=== PATIENT | female | born 1940 | race Caucasian/White ===

== ENCOUNTER 2017-01-29 11:07 | Inpatient (IN) ==
[2017-01-29] MEDS ORDERED: HYOSCYAMINE 0.125 MG ORAL TABLET PO PRN (16:18)
[2017-01-29] MEDS ORDERED: MAGNESIUM CARB PO PRN (16:18)
[2017-01-29] MEDS ORDERED: ALUMINUM HYDROX PO PRN (16:18)
--- NOTE | 2017-01-29 16:28 | IRU History & Physical Report ---
[facility] IRU Date: Date: 01/29/17 Time: 1623 Chief complaint: My back hurts HPI: Ms. Castle is a very pleasant 76-year-old female referred by Dr. Duke Abdalla from [facility] in [place]. Her primary care physician is Dr. Mari Darling. The patient has a history of severe spinal stenosis and recently underwent extensive surgery for this. She had been experiencing severe pain for a number of months if not longer. She has had several epidural steroid injections. She received one in October which seemed to cause even worsened pain. For this reason her daughter has been staying with her for the past 2-1/2 months to help her with household duties etc. She was diagnosed with severe spinal stenosis and spondylolisthesis. The patient underwent surgery by Dr. Ellington on 01/25/2017. This was a fusion and laminectomy with L2-L3 and L4-L5 laminectomy, use of autograft through same incision as well as posterior instrumentation. Since surgery she has had significant discomfort. Once she is able to stand, she is able to ambulate with assistance fairly well. However she has significant pain and difficulty with transfers. She has significant functional deficits. The patient was formerly independent at home prior to her worsened spinal stenosis and spondylolisthesis. She does have history of diabetes mellitus. She is on oral agents only (metformin and glipizide. She checks her blood sugars once daily and states that they are always well controlled around 100 or so. Occasionally they are down into the 70s however. She has not been on insulin. I asked her what her A1c was running and she did not know. She does have a history of hypertension. She is on medication for this. In addition she has had some drainage from the wound apparently. She is now on cephalexin for [address] Ellington. She has had a mild leukocytosis and this will be followed as well. Level of functioning prior to the current procedure is as follows: She was independent for eating, grooming, upper and lower body dressing, and toileting. She was modified independent for bathing, bed/chair/wheelchair transfers, toilet transfers and walking. She was able to walk with a rolling walker 500 feet. Current level of functioning since surgery is as follows: She is supervision level for eating and grooming. She requires moderate assistance for bathing, upper and lower body dressing and bed/chair/wheelchair transfers. She requires total assistance for toileting. She requires maximum assistance for toilet transfers. She requires minimum assistance for walking 200 feet. She has significant pain upon arising from a sitting position and in fact cannot do so without maximum assistance of 2 people. She does have decreased stride length and decreased gait speed. The following medical conditions are noted and require active monitoring and/or management: 1. Uncontrolled pain. She has had difficulty with pain management. She has been on intravenous Dilaudid apparently. She is now on high doses of Percocet. She is at risk for continued uncontrolled pain and requires education and training as well as strengthening to be able to transfer without as much discomfort. 2. Diabetes mellitus type 2: She is at risk for significant hyperglycemia as well as hypoglycemia in view of the variable energy demands and oral intake involved in rehabilitation. In addition she is at risk for poor wound healing in view of the diabetes. 3. Hypertension: She is at risk for uncontrolled hypertension in view of her pain. 4. Leukocytosis: This is of uncertain etiology. We will monitor the wound for evidence of infection. The following therapies will be needed: 1. Physical therapy: for transfers and ambulation and stairs. 2. Occupational therapy: for ADL's and transfers. 3. Dietitian: in view of her diabetes mellitus 4. Medical management: for the above conditions. 5. 24 hour Rehabilitation Nursing to monitor and address the following: The patient requires close monitoring of her wound to ensure no evidence of infection, close monitoring of blood sugars to avoid hypoglycemia and extreme hyperglycemia as well as monitoring of her blood pressure. Finally she requires 24 rehabilitation nursing for revision of adequate pain control for participation in therapy. PFS 1. Diabetes mellitus, type II not on insulin 2. Benign essential hypertension, on medication 3. Hypothyroidism 4. Constipation 5. Reflux esophagitis Surgical History: 1. Anterior cervical approach to laminectomy, Dr. Sam Awan. 2. Current lumbar laminectomy, posterior instrumentation and bone graft. 3. Cholecystectomy. 4. Hysterectomy without BS&O. 5. Appendectomy. 6. Tonsillectomy and adenoidectomy. 7. Bilateral cataract procedure Family History: Patient's father is with alcoholism and "hardening of the arteries. Her mother is with heart disease, with report of "angina." - Social History Smoking status: Former smoker Packs per day: 0.5 (smoking from age 14 through age 29-1/2 pack daily or less.) Packs-years: 8 Substance use type: does not use Alcohol intake: former Alcohol intake frequency: other (uncertain frequency. Stopped drinking age 31.) Housing: house Household members: spouse, children Current occupational status: retired Does patient use chewing tobacco?: No Current residence: Apartment/Private Home Social history: Patient lives at home here in [place] with her and her daughter who is been assisting with her care. 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 Review of Systems - Constitutional Constitutional: Absent: anorexia, chills, fatigue, fever(s), headache(s), lethargy, malaise, night sweats, weakness, weight gain, weight loss - EENMT Eyes: Absent: blurry vision, change in vision, diplopia Mouth/Throat: Absent: changes in swallowing, painful swallowing, change in taste , bleeding gums, change in voice EENMT Comments: Reduced hearing - Cardiovascular Cardiovascular: Absent: chest pain, palpitations, syncope, dyspnea on exertion, orthopnea, edema, cyanosis, heart murmur Rhythm: Present: regular rhythm Vascular: Absent: intermittent claudication, pedal edema, unilateral swelling - Respiratory Respiratory: Absent: cough, dyspnea, hemoptysis, dyspnea on exertion, wheezing, pain on inspiration, chest congestion, excessive phlegm production - Gastrointestinal Gastrointestinal: Present: constipation. Absent: abdominal pain, change in bowel habits, diarrhea, dyspepsia, dysphagia, early satiety, hematochezia, melena, nausea, vomiting - Musculoskeletal Musculoskeletal: Present: back pain, myalgias. Absent: abnormal gait, arthralgias, joint swelling, limited range of motion, muscle weakness - Integumentary/Breasts Integumentary: Absent: alopecia, erythema, lesions, pruritus, rash, jaundice - Neurological Neurological: Present: weakness. Absent: abnormal gait, abnormal movements, abnormal speech, confusion, convulsions, dizziness, focal weakness, frequent falls, headache(s), loss of vision, memory loss, numbness, paresthesias, tremor( s) - Psychiatric Psychiatric: Absent: abnormal sleep pattern, anxiety, depression Psychiatric Comments: Insomnia - Endocrine Endocrine: Absent: cold intolerance, flushing, heat intolerance, palpitations - Hematologic/Lymphatic Hematologic/Lymphatic: Absent: easy bleeding, easy bruising, lymphadenopathy - Allergic/Immunologic Allergic/Immunologic: Absent: urticaria Medications Home Medications Medication Instructions Recorded Confirmed Type Amitriptyline [Elavil] 1 tab PO HS 01/29/17 01/29/17 History Amlodipine Besylate/Benazepril 1 each PO 0630 01/29/17 01/29/17 History [Lotrel 5-10 mg Capsule] Aspirin Chewable [ASA] 81 mg PO QMWF 01/29/17 01/29/17 History Atorvastatin [Lipitor] 1 tab PO HS 01/29/17 01/29/17 History Calcium Carb,Gluc/Mag Ox,Gluc 1 each PO DAILY 01/29/17 01/29/17 History [Calcium Magnesium Caplet] CephALEXin [Keflex] 1 tab PO QID 01/29/17 01/29/17 History Cranberry Conc/Ascorbic Acid 2 each PO DAILY 01/29/17 01/29/17 History [Cranberry Plus Vitamin C Sftgl] Cyclobenzaprine [Flexeril] 1 tab PO Q8HR PRN 01/29/17 01/29/17 History Docusate Sodium [Colace] 3 cap PO DAILY 01/29/17 01/29/17 History Esomeprazole Magnesium [Nexium] 20 mg PO 0630 01/29/17 01/29/17 History Ferrous Sulfate 325 mg PO 1200 01/29/17 01/29/17 History Fexofenadine [Casie] 180 mg PO DAILY 01/29/17 01/29/17 History Furosemide [Lasix] 1 tab PO DAILY 01/29/17 01/29/17 History Hyoscyamine Sulfate 0.125 mg PO Q4HR PRN 01/29/17 01/29/17 History Levothyroxine Tab [Synthroid] 125 mcg PO ACB 01/29/17 01/29/17 History Magnesium Carb/Aluminum Hydrox 2 tab PO Q6HR PRN 01/29/17 01/29/17 History [Acid Gone Tablet Chew] Melatonin 10 mg PO HS 01/29/17 01/29/17 History Metformin [Glucophage] 500 mg PO BIDWM 01/29/17 01/29/17 History Multivitamin [Multivitamins] 1 each PO DAILY 01/29/17 01/29/17 History Oxycodone/Apap 10/325 [Percocet 1 - 2 tab PO Q4HR PRN 01/29/17 01/29/17 History 10/325] Promethazine HCl 25 mg PO Q6HR PRN 01/29/17 01/29/17 History Valerian Root 1,000 mg PO HS 01/29/17 01/29/17 History glipiZIDE [Glipizide] 10 mg PO BID 01/29/17 01/29/17 History Allergies Allergy/AdvReac Type Severity Reaction Status Date / Time erythromycin base Allergy Intermediate RASH Verified 12/29/11 15:44 codeine Allergy Unknown Verified 12/29/11 15:44 celecoxib AdvReac Mild INCREASE Verified 12/29/11 15:44 IN BLOOD PRESSURE duloxetine AdvReac Mild HALLUCINATI Verified 12/29/11 15:44 ONS ether AdvReac Mild NAUSEA/VOMI Verified 12/29/11 15:44 T gabapentin AdvReac Mild "SPACEY" Verified 12/29/11 15:44 morphine AdvReac Mild HALLUCINATI Verified 12/29/11 15:44 ONS Exam - Constitutional Present: mild distress, well nourished, well developed, average body habitus, obese, cooperative Comments: She is somewhat confused at present. Has had recent pain medication. - Routine HEENT Exam Head: Present: normocephalic, atraumatic. Absent: cushingoid faces, abrasion, laceration, hematoma Eye: Present: EOMI, PERRL. Absent: conjunctival icterus, scleral injection, periorbital swelling, nystagmus ENT: Present: mucous membranes moist, oropharynx clear - Routine Neck Exam Present: supple, full ROM, trachea midline. Absent: lymphadenopathy, thyromegaly, tenderness, swelling - Routine Chest/Breast/Axilla Exam Chest wall: Absent: tenderness, mass Axillae: Absent: lymphadenopathy, mass - Routine Respiratory Exam Present: CTA bilaterally. Absent: accessory muscle use, decreased breath sounds , prolonged expiratory phase, rales, respiratory distress, rhonchi, stridor, wheezes, crackles, distant breath sounds - Routine Cardiovascular Exam Present: RRR, S1, S2, murmur (has early systolic murmur left sternal border and second right interspace grade 2/6). Absent: gallop, S3, S4, click, irregular rhythm - Routine Abdominal Exam Present: soft, normoactive bowel sounds, non distended, non tender. Absent: rebound, guarding, firm, rigid, organomegaly, mass, hernia, wound - Routine Extremities Exam Present: no edema, non tender, pulses intact, normal capillary refill. Absent: cyanosis, clubbing - Routine Back/Spine/Pelvis Exam Back/Spine: Absent: full ROM (she is in a back brace at present.), scoliosis, kyphosis - Routine Skin Exam Present: intact, dry, warm, wounds (drain removed recently from back wound.). Absent: cyanosis, erythema, pallor, mottling, petechiae, urticaria, lesions, jaundice - Routine Neurological Exam Present: alert, oriented X3, CN II-XII intact, altered mental status (somewhat confused likely secondary to delirium from pain medication), moving all extremities, normal speech - Routine Psychiatric Exam Present: normal affect, normal thought process, cooperative, good insight, good judgment. Absent: depressed, anxious Sepsis Assessment - Evaluation Severe Sepsis: none seen IRU A/P (1) S/P lumbar laminectomy Current visit: Yes Status: Acute Continues to have significant pain as well as significant muscle weakness and inability to transfer from sitting to standing without substantial assistance. She requires a multidisciplinary approach in view of her multiple medical problems and pain management needs. (2) Diabetes mellitus type 2 in obese Current visit: Yes Status: Chronic Patient has a history of diabetes mellitus with uncertain control. She has values down into the 70s at times she states. She is at risk of hyperglycemia or hypoglycemia in view of the varying work demands related to rehabilitation. (3) Benign essential hypertension Current visit: Yes Status: Chronic (4) Leukocytosis Qualifiers: Leukocytosis type: unspecified Qualified Code(s): D72.829 - Elevated white blood cell count, unspecified Current visit: Yes Status: Acute She has had a white count reportedly around 16,000. She is on cephalexin. We will monitor this carefully. DVT Prophylaxis: SCD's Resuscitation Status: Full Code - Course Hospital Course: Chente Monroe MD: - Interventions to Obtain Goals PT Treatment Plan: Balance/Proprioception, Functional Activities, Gait Training , Patient/Family Education OT Treatment Plan: ADL (Basic Care), Balance Training, IADL, Pt./Family Education Goals Progress/Modifications: Patient has multiple functional deficits which have been acquired since her lumbar spinal stenosis, spondylolisthesis and surgery. In addition she has diabetes mellitus, leukocytosis and significant pain management needs. She requires a multidisciplinary team approach and will require 3 hours of therapy daily.
--- NOTE | 2017-01-29 16:38 | IRU 24Hr Post Admit Eval ---
24 Hr Post Admission Physical - Relevant Changes Relevant Changes: No Reviewed: I have reviewed the patient's information and concur with the finding and results of the pre-admission screen. Certification: I certify the patient for rehabilitation. - Patient Condition (1) S/P lumbar laminectomy Status: Acute Code(s): Z98.890 - Other specified postprocedural states Classification: Present on IRF Admission, IRF Tx That Should Address Diagnosis, Diagnosis Requiring Medical Follow Up (2) Diabetes mellitus type 2 in obese Status: Chronic Code(s): E11.69 - Type 2 diabetes mellitus with other specified complication; E66.9 - Obesity, unspecified Classification: Present on IRF Admission, IRF Tx That Should Address Diagnosis, Diagnosis Requiring Medical Follow Up (3) Benign essential hypertension Status: Chronic Code(s): I10 - Essential (primary) hypertension Classification: Present on IRF Admission, IRF Tx That Should Address Diagnosis, Diagnosis Requiring Medical Follow Up (4) Leukocytosis Status: Acute Qualifiers: Leukocytosis type: unspecified Qualified Code(s): D72.829 - Elevated white blood cell count, unspecified Code(s): D72.829 - Elevated white blood cell count, unspecified Classification: Present on IRF Admission, IRF Tx That Should Address Diagnosis, Diagnosis Requiring Medical Follow Up - Prior Functional Status Lives With: With Family Residence Type: Apartment/Private Home Assitive Devices: Front Wheeled Walker Prior Functional Status: Indep. at home or school, Used assistive device - Current Functional Status Current Level of Function: Current level of functioning since surgery is as follows: She is supervision level for eating and grooming. She requires moderate assistance for bathing, upper and lower body dressing and bed/chair/wheelchair transfers. She requires total assistance for toileting. She requires maximum assistance for toilet transfers. She requires minimum assistance for walking 200 feet. She has significant pain upon arising from a sitting position and in fact cannot do so without maximum assistance of 2 people. She does have decreased stride length and decreased gait speed. Patient Requirements: The patient requires oversight by rehabilitation physician to manage their rehabilitation treatment plan and multidisciplinary approach to care that can only be provided in an IRF and requires a multidisciplinary approach to care, provided by professional PTs, OTs, STs, dieticians, RTs, rehabilitation nurses and is not available in lesser levels of care. Limitations Req: Mobility Impairment, ADL Impairment, Limited Mobility Physical Therapy Minutes: 90 Occupational Therapy Minutes: 90 Therapy: The patient is to receive therapy at least 5 days a week. - Complications/Comorbidities Impact on Functional Outcomes: Her significant pain will negatively impact her functional outcome. Barriers to Discharge: Weakness, Endurance, Pain Control, Medical Limitation - Plan to Avoid Complications Plan to Avoid Complications: The patient cannot receive this care in a lesser intensive setting such as Intermediate or Outpatient Therapy due to the patient requiring the following : Patient requires close monitoring of her blood sugars, blood pressure and pain management. She requires a multidisciplinary approach to include physical therapy, occupational therapy and a rehabilitation nursing monitoring and treatment. She requires medical supervision for her multiple medical problems. .
[2017-01-29] MEDS: GlipiZIDE 5 MG TABLET PO SCH (17:35)
[2017-01-29] MEDS: METFORMIN 500 MG TABLET PO SCH (17:36)
[2017-01-29] MEDS ORDERED: FALL RISK - PHARMACY CONSULT XX ONE (18:26)
[2017-01-29] MEDS: Oxycodone/Apap 10/325 1 TAB PO PRN (19:27)
[2017-01-29] MEDS: ATORVASTATIN 10 MG TABLET PO SCH (20:42)
[2017-01-29] MEDS: AMITRIPTYLINE 10 MG TABLET PO SCH (20:42)
[2017-01-29] MEDS: MELATONIN 5 MG TABLET PO SCH (20:42)
[2017-01-29] MEDS: VALERIAN ROOT PO SCH (23:53)
[2017-01-30] MEDS: Oxycodone/Apap 10/325 1 TAB PO PRN ×4 (01:44→14:47)
[2017-01-30] MEDS ORDERED: OMEPRAZOLE 20 MG CAPSULE PO SCH (06:30)
[2017-01-30] MEDS: LEVOTHYROXINE 125 MCG TABLET PO SCH (06:32)
[2017-01-30] MEDS: AMLODIPINE/BENAZEPRIL 5mg/10mg CAPSULE PO SCH (06:32)
[2017-01-30] MEDS: METFORMIN 500 MG TABLET PO SCH (08:52)
[2017-01-30] MEDS: CALCIUM CARBONATE 500 MG TABLET PO SCH (08:52)
[2017-01-30] MEDS: GlipiZIDE 5 MG TABLET PO SCH ×2 (08:52→17:32)
[2017-01-30] MEDS: DOCUSATE SODIUM 100 MG CAPSULE PO SCH (08:53)
[2017-01-30] MEDS: FEXOFENADINE 180 MG TABLET PO SCH (08:53)
[2017-01-30] MEDS: FUROSEMIDE 20 MG TABLET PO SCH (08:53)
[2017-01-30] MEDS: MULTI-VITAMIN PLAIN TABLET PO SCH ×2 (08:54→09:36)
[2017-01-30] MEDS: CRANBERRY PO SCH (08:57)
[2017-01-30] MEDS: ASCORBIC ACID PO SCH (08:57)
[2017-01-30] MEDS: PROMETHAZINE 25 MG TABLET PO PRN ×2 (10:34→17:33)
--- NOTE | 2017-01-30 10:44 | Consult Note ---
Consult Information - Data of Consult Consult date: 01/30/17 Requesting Physician: Chente Monroe MD Primary Care Provider: Mari Hinkle DO Family Provider: Mari Hinkle DO - Consult Narrative Reason for consult: Medical management of chronic health issues History of present illness: Patient is a 76 yo female who has a history of severe spinal stenosis and recently had extensive surgery for this on 01.25.[address] Duke Abdalla at [facility]. Her PCP is Dr. Mari Hinkle. She has diabetes for which she takes metformin and glipizide. She is on amlodipine/benazepril for her HTN. She is currently on Keflex for drainage from her surgical wound through Dr. Ellington. Patient is seen in her room with her present. She c/o pain 7-8/10. Also feels some nausea. It has been 4 hours since her last percocet dose. She and her are most concerned that she get her pain medication prior to therapy. She slept well. Appetite was less than average at breakfast. Last BM was yesterday. PFSH Patient Stated Medical History Diabetes Mellitus - Type 2 HTN GERD Hypothyroidism Spinal stenosis and spondylolisthesis Surgical History: 1. Anterior cervical approach to laminectomy, Dr. Sam Awan. 2. Current lumbar laminectomy, posterior instrumentation and bone graft. 3. Cholecystectomy. 4. Hysterectomy without BS&O. 5. Appendectomy. 6. Tonsillectomy and adenoidectomy. 7. Bilateral cataract procedure Family History: Father - . Alcoholism and CAD Mother - . CAD - Social History Smoking status: Former smoker (smoked 15 years. 1/2ppd or less) Substance use type: does not use Alcohol intake frequency: former alcohol drinker (quit age 31) Housing: house Household members: spouse, children (daughter -helps care for her) Current occupational status: retired Social history: PCP- Dr. Mari Hinkle Back surgeon - Dr. Duke Ellington Review of Systems All systems PM: 10-point ROS was reviewed, no additional remarkable complaints except (nausea, abdominal pain (site of incision), anxiety) Medications Home Medications Medication Instructions Recorded Confirmed Type Amitriptyline [Elavil] 1 tab PO HS 01/29/17 01/29/17 History Amlodipine Besylate/Benazepril 1 each PO 0630 01/29/17 01/29/17 History [Lotrel 5-10 mg Capsule] Aspirin Chewable [ASA] 81 mg PO QMWF 01/29/17 01/29/17 History Atorvastatin [Lipitor] 1 tab PO HS 01/29/17 01/29/17 History Calcium Carb,Gluc/Mag Ox,Gluc 1 each PO DAILY 01/29/17 01/29/17 History [Calcium Magnesium Caplet] CephALEXin [Keflex] 1 tab PO QID 01/29/17 01/29/17 History Cranberry Conc/Ascorbic Acid 2 each PO DAILY 01/29/17 01/29/17 History [Cranberry Plus Vitamin C Sftgl] Cyclobenzaprine [Flexeril] 1 tab PO Q8HR PRN 01/29/17 01/29/17 History Docusate Sodium [Colace] 3 cap PO DAILY 01/29/17 01/29/17 History Esomeprazole Magnesium [Nexium] 20 mg PO 0630 01/29/17 01/29/17 History Ferrous Sulfate 325 mg PO 1200 01/29/17 01/29/17 History Fexofenadine [Casie] 180 mg PO DAILY 01/29/17 01/29/17 History Furosemide [Lasix] 1 tab PO DAILY 01/29/17 01/29/17 History Hyoscyamine Sulfate 0.125 mg PO Q4HR PRN 01/29/17 01/29/17 History Levothyroxine Tab [Synthroid] 125 mcg PO ACB 01/29/17 01/29/17 History Magnesium Carb/Aluminum Hydrox 2 tab PO Q6HR PRN 01/29/17 01/29/17 History [Acid Gone Tablet Chew] Melatonin 10 mg PO HS 01/29/17 01/29/17 History Metformin [Glucophage] 500 mg PO BIDWM 01/29/17 01/29/17 History Multivitamin [Multivitamins] 1 each PO DAILY 01/29/17 01/29/17 History Oxycodone/Apap 10/325 [Percocet 1 - 2 tab PO Q4HR PRN 01/29/17 01/29/17 History 10/325] Promethazine HCl 25 mg PO Q6HR PRN 01/29/17 01/29/17 History Valerian Root 1,000 mg PO HS 01/29/17 01/29/17 History glipiZIDE [Glipizide] 10 mg PO BID 01/29/17 01/29/17 History Allergies Allergy/AdvReac Type Severity Reaction Status Date / Time erythromycin base Allergy Intermediate RASH Verified 12/29/11 15:44 codeine Allergy Unknown Verified 12/29/11 15:44 celecoxib AdvReac Mild INCREASE Verified 12/29/11 15:44 IN BLOOD PRESSURE duloxetine AdvReac Mild HALLUCINATI Verified 12/29/11 15:44 ONS ether AdvReac Mild NAUSEA/VOMI Verified 12/29/11 15:44 T gabapentin AdvReac Mild "SPACEY" Verified 12/29/11 15:44 morphine AdvReac Mild HALLUCINATI Verified 12/29/11 15:44 ONS Exam Vital Signs: Temperature 97.5 F 01/30/17 08:50 Pulse Rate 106 H 01/30/17 08:50 Respiratory Rate 16 01/30/17 08:50 Blood Pressure 152/61 H 01/30/17 08:50 Pulse Oximetry 96 01/30/17 08:50 Height/Weight/BMI: Height 1.59 m Weight 88 kg Body Mass Index 34.9 - Constitutional Present: no acute distress, well nourished, well developed - Routine HEENT Exam Head: Present: normocephalic, atraumatic ENT: Present: mucous membranes dry, oropharynx clear - Routine Neck Exam Present: supple. Absent: lymphadenopathy, thyromegaly - Routine Respiratory Exam Present: CTA bilaterally. Absent: wheezes - Routine Cardiovascular Exam Present: RRR, murmur (Gr 1) - Routine Abdominal Exam Present: soft, normoactive bowel sounds, non distended. Absent: tenderness - Routine Extremities Exam Present: edema (2+), normal capillary refill - Routine Skin Exam Present: dry, warm - Routine Neurological Exam Present: alert, oriented X3 - Routine Psychiatric Exam Present: normal affect, cooperative Results - Labs CBC & Chem 7: 01/30/17 04:33 01/30/17 04:33 Assessment and Plan (1) S/P lumbar laminectomy Current visit: Yes Status: Acute Assessment and Plan: Assessment Hyponatremia - POA S/p lumbar laminectomy Diabetes Mellitus - Type 2 HTN GERD Hypothyroidism Plan Pain management and therapies per Dr. Monroe. Check serum and urine osmolality and urine sodium to workup hyponatremia. Will review previous hospital records to see what recent sodium levels have been. Follow Accu-Cheks. Blood sugars have been stable thus far. Blood pressure slightly elevated, but acceptable given her pain. We'll continue to monitor. Care to return to Dr. Mari Hinkle upon dismissal. We will continue to follow patient medically with you throughout her stay. Thank you for the consult. - Physician Narrative Physician: Tiburcio Francisco MD Narrative: Date: 01/30/17 Time: 1939 Have independently interviewed and examined pt. Chart reviewed. Case discussed with my PA. Care plan developed with my supervision; agree with above. Admitted to IRU for restorative therapy following back surgery. Pain pain with vary. Does not nausea at time. Stools moving well during acute, but slow on rehab. More confused today. Sodium with decrease to 125. Has edema to legs. Breathing okay-not congested or SOA, does not hurt with breathing. No palpitations. Lungs: decreased, no distress CV: tachy with MAYO AB: soft obese nt BS decreased Ext: +2 BLE MSE: awake alert, confusion. No agitation. Assessment Hyponatremia - POA Acute encephalopathy - suspect secondary to hyponatremia S/p lumbar laminectomy Diabetes Mellitus - Type 2 HTN GERD Hypothyroidism Plan Will increase Lasix to help waste free water. Minimize sodium intake. Monitor serum sodium. Continue pain control, with cautious use of narcotics due to encephalopathy and hyponatremia. Encourage therapy. Encourage pulmonary toilet. Medically stable for IRU at this time. Will need continued monitoring of sodium. Hospital Course Summary Disclaimer: The visit summary below is not to be considered part of the above Progress Note.
--- NOTE | 2017-01-30 11:04 | IRU Progress Note ---
- Subjective/Serverity of Illness Date: 01/30/17 Ms. Castle was evaluated in her room on inpatient rehabilitation. She is settling into therapy. Cognition has turned out to be an issue. When I was interviewing her yesterday, she clearly could not track well. At that time her family was attributing this to Dilaudid which she had received at [place]. She apparently has been using Percocet 10 mg at home on a regular basis. She is quite fixated on her medications and requires a nurse to review the exact dose and milligrams of each pill that she is being given. Today she is sitting up in a chair in her room. is present. He would like a pain pill to be given prior to therapy sessions. She reports she was up a lot last night urinating. She believes it was due to the fact that Lasix was given late in the day. She received it this morning. Brief therapy update: She is just getting started with therapy. She is able to transfer with standby assistance. Update on medical issues we are actively monitoring and managin. Uncontrolled pain. Apparently has significant pain this morning although did receive her Percocet around 6:30 AM. At the present time she seems to be comfortable but does relate pain both in the back and the abdomen at times. Hurts to transfer. 2. Diabetes mellitus type 2: Remains on oral agents. Blood sugars are reasonable at the present time and we will continue to monitor. No hypoglycemia noted. 3. Hypertension: Her blood pressures are running a bit high at 150 or so systolic. We will monitor this for the time being but may need to adjust medications if needed. 4. Leukocytosis: She demonstrated leukocytosis in [place] with white count around 16-17,000. Her current white count has normalized at 9000. Remains on cephalexin from her surgeon in [place]. 5. Cognition: She does display significant cognitive deficits. Or this is a "delirium" secondary to her pain medication or not is not clear at present. She had Dilaudid yesterday morning in [place]. Has not received any since. We will see if this clears over the next 24-48 hours. If not we will ask speech therapy to see her etc. 6. Hyponatremia: Her serum sodium is low at 125. She is on furosemide. We will defer to the hospitalist in this regard but it could be that the hyponatremia is playing a role with regard to her thinking as well. Exam Vital Signs: Temperature 97.5 F 01/30/17 08:50 Pulse Rate 106 H 01/30/17 08:50 Respiratory Rate 16 01/30/17 08:50 Blood Pressure 152/61 H 01/30/17 08:50 Pulse Oximetry 96 01/30/17 08:50 Height/Weight/BMI: Height 1.59 m Weight 88 kg Body Mass Index 34.9 - Constitutional Present: mild distress, well nourished, well developed, obese, cooperative Comments: She does display evidence of confusion both to the nurses as well as therapists and myself. - Routine HEENT Exam Head: Present: normocephalic Eye: Present: EOMI ENT: Present: mucous membranes moist, dentition normal - Routine Neck Exam Present: supple - Routine Respiratory Exam Present: CTA bilaterally. Absent: dyspnea, respiratory distress, wheezes - Routine Cardiovascular Exam Present: RRR, S1, S2, murmur (grade 2/6 systolic murmur left sternal border and hint of similar murmur second right interspace.). Absent: S3, S4 - Routine Abdominal Exam Present: soft, normoactive bowel sounds, non distended. Absent: tenderness - Routine Extremities Exam Present: no edema. Absent: cyanosis, clubbing - Routine Neurological Exam Present: alert, oriented X3 (however, patient is to repeat questions and not answer questions directly.), CN II-XII intact, moving all extremities, normal speech. Absent: facial asymmetry - Routine Psychiatric Exam Present: normal affect, cooperative. Absent: normal thought process (she seems to be obsessive regarding medication doses and timing etc.) Comments: Concerned about her confusion which may be related to delirium from the Dilaudid. We'll monitor for the next day or so. Results IRU - Labs Labs: Reviewed labs etc. IRU A/P (1) S/P lumbar laminectomy Current visit: Yes Status: Acute Her primary difficulty is with transferring from sitting to standing. She does have discomfort. She is on Percocet 10 mg daily which apparently she was taking at home as well. (2) Diabetes mellitus type 2 in obese Current visit: Yes Status: Chronic Her blood sugars are doing reasonably well at present. Continue to monitor. (3) Benign essential hypertension Current visit: Yes Status: Chronic Blood pressures running a bit high. This may be related to pain issues or anxiety etc. We will monitor for the time being. (4) Leukocytosis Qualifiers: Leukocytosis type: unspecified Qualified Code(s): D72.829 - Elevated white blood cell count, unspecified Current visit: Yes Status: Resolved Repeat white count appears to be normal at 9000. (5) Hyponatremia Current visit: Yes Status: Acute Serum sodium is 125. Chloride is also reduced. 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 Difficult to assess in the presence of furosemide. We will defer to hospitalist for management of this. (6) Delirium Current visit: Yes Status: Acute Please see above discussion regarding her confusion. Seems to be oriented adequately but does repeat questions and is extremely compulsive about medication doses and timing. DVT Prophylaxis: SCD's Resuscitation Status: Full Code - Course Hospital Course: Chente Monroe MD: 01/30/17 11:15 Getting started with therapy. Confusion is an issue and carryover of education is questionable. White count is now normal. Sodium 125. - Interventions to Obtain Goals PT Treatment Plan: Balance/Proprioception, Functional Activities, Gait Training , Patient/Family Education, Therapeutic Exercise OT Treatment Plan: ADL (Basic Care), Balance Training, IADL, Pt./Family Education Goals Progress/Modifications: Time spent with patient and on floor reviewing data and documentin min Barriers to dismissal: Pain, endurance, cognition Medical decision-making: Patient has a number of issues going on. She does have cognition deficit which is likely delirium related to her Dilaudid. However we are not certain of the baseline and so we will monitor this carefully. In addition she has hyponatremia 125. Likely this is a common addition of furosemide plus or minus SIADH due to the pain. Finally she does have pain management issues as well as significant weakness with transfers. We will continue therapy at the present time.
[2017-01-30] MEDS ORDERED: MECLIZINE 12.5 MG TABLET PO PRN (12:05)
[2017-01-30] MEDS ORDERED: GAVISCON SUSPENSION 15ml PO PRN (12:20)
[2017-01-30] MEDS: FERROUS SULFATE 324 MG TABLET PO SCH (12:24)
[2017-01-30] MEDS: ASPIRIN 81 MG CHEWABLE TABLET PO SCH (12:24)
[2017-01-30] MEDS ORDERED: BISACODYL 10 MG SUPPOSITORY RECTALLY PRN (14:14)
--- NOTE | 2017-01-30 14:40 | IRU Plan of Care ---
IRU Overall Plan of Care - Date Date: 01/30/17 - Patient Impairments (1) S/P lumbar laminectomy Code(s): Z98.890 - Other specified postprocedural states Status: Acute Classification: Present on IRF Admission, IRF Tx That Should Address Diagnosis, Diagnosis Requiring Medical Follow Up (2) Delirium Code(s): R41.0 - Disorientation, unspecified Status: Acute (3) Hyponatremia Code(s): E87.1 - Hypo-osmolality and hyponatremia Status: Acute Classification: Present on IRF Admission, IRF Tx That Should Address Diagnosis, Diagnosis Requiring Medical Follow Up (4) Diabetes mellitus type 2 in obese Code(s): E11.69 - Type 2 diabetes mellitus with other specified complication; E66.9 - Obesity, unspecified Status: Chronic Classification: Present on IRF Admission, IRF Tx That Should Address Diagnosis, Diagnosis Requiring Medical Follow Up (5) Leukocytosis Qualifiers: Leukocytosis type: unspecified Qualified Code(s): D72.829 - Elevated white blood cell count, unspecified Code(s): D72.829 - Elevated white blood cell count, unspecified Status: Resolved Classification: Present on IRF Admission, IRF Tx That Should Address Diagnosis, Diagnosis Requiring Medical Follow Up - Relevant Changes Relevant Changes: No Reviewed: I have reviewed the patient's information and concur with the finding and results of the pre-admission screen. Certification: I certify the patient for rehabilitation. - Medical Prognosis Medical Prognosis: Good Vital Signs: Last Vital Signs Temp 97.5 F 01/30/17 08:50 Pulse 106 H 01/30/17 08:50 Resp 16 01/30/17 08:50 BP 152/61 H 01/30/17 08:50 Pulse Ox 96 01/30/17 08:50 - Anticipated Interventions Anticipated Interventions: The patient requires inpatient IRF care for PT, OT, and/or ST for residuals remaining from lumbar laminectomy resulting in muscular weakness and strength deficits. An individualized overall plan of care has been developed after careful review of the patient's preadmission screening, post admission physician evaluation and assessments of all therapy disciplines and/or other pertinent clinicians involved in treating the patient. This indicates medical necessity and rehabilitation necessity have been established through a thorough review of all available medical information. - Current Functional Status Failed Alternative Therapy: Arrived from Acute Care Patient Requires: The patient requires oversight by rehabilitation physician to manage their rehabilitation treatment plan and multidisciplinary approach to care that can only be provided in an IRF and requires a multidisciplinary approach to care, provided by professional PTs, OTs, STs, rehabilitation nurses, and may require STs, dieticians, and RTS. This is not available in lesser levels of care. Physical Therapy Minutes: 90 Occupational Therapy Minutes: 90 Therapy: The patient is to receive therapy at least 5 days a week. - Anticipated LOS/Outcomes Anticipated Functional Outcome: Expected functional improvements include: -- Modified independant to independant ambulation with or without assistive device -- Modified independant to independant ADL's with or without assistive device -- Return to pre-morbid level of mobility -- Maximize level of mobility and ADL's to decrease burden on any caregiver involved with this patient's care Anticipated Length of Stay (days): 7 Anticipated DC Destination: Home, Self Care, Home Health Service Home Safety Plan: The patient will be provided with the development of a Home Safety Plan for return to a home or home-like environment and and to ensure safety post discharge. - Plan to Avoid Complications Barriers to Attaining Goals: Weakness, Endurance, Pain Control Plan to Avoid Complications: The patient cannot receive this care in a lesser intensive setting such as Penitentiary or Outpatient Therapy due to the patient requiring the following : The patient requires close monitoring of her electrolytes, blood sugars in view of diabetes and variable work demands as well as appropriate assessment and treatment of pain to allow adequate rehabilitation. She requires medical supervision of these multiple medical problems as well as to observe for evidence of wound infection. She had leukocytosis while on acute care and remains on an antibiotic although no wound infection is currently identified.
[2017-01-30] MEDS: METFORMIN 1,000 MG TABLET PO SCH (17:33)
[2017-01-30] MEDS: MELATONIN 5 MG TABLET PO SCH ×2 (19:47→21:59)
[2017-01-30] MEDS: AMITRIPTYLINE 10 MG TABLET PO SCH ×2 (19:50→21:59)
[2017-01-30] MEDS: SENNOSIDES 8.6 MG TABLET PO SCH ×2 (19:51→21:59)
[2017-01-30] MEDS: VALERIAN ROOT PO SCH (21:59)
[2017-01-30] MEDS: ATORVASTATIN 10 MG TABLET PO SCH (21:59)
[2017-01-31] MEDS: LEVOTHYROXINE 125 MCG TABLET PO SCH (06:32)
[2017-01-31] MEDS: Oxycodone/Apap 10/325 1 TAB PO PRN ×4 (06:32→23:06)
[2017-01-31] MEDS ORDERED: FUROSEMIDE 40 MG TABLET PO ONE (07:00)
[2017-01-31] MEDS ORDERED: GlipiZIDE 5 MG TABLET PO SCH (07:30)
[2017-01-31] MEDS: DOCUSATE SODIUM 100 MG CAPSULE PO SCH (09:04)
[2017-01-31] MEDS: CALCIUM CARBONATE 500 MG TABLET PO SCH (09:05)
[2017-01-31] MEDS: FEXOFENADINE 180 MG TABLET PO SCH (09:05)
[2017-01-31] MEDS: METFORMIN 1,000 MG TABLET PO SCH ×2 (09:05→17:11)
[2017-01-31] MEDS: MULTI-VITAMIN PLAIN TABLET PO SCH (09:06)
[2017-01-31] MEDS: FUROSEMIDE 20 MG TABLET PO SCH (09:06)
[2017-01-31] MEDS: POLYETHYL GLYCOL 3350 17gm PACKET PO SCH (09:08)
[2017-01-31] MEDS: CRANBERRY PO SCH (09:09)
[2017-01-31] MEDS: ASCORBIC ACID PO SCH (09:09)
--- NOTE | 2017-01-31 10:21 | IRU Progress Note ---
- Subjective/Serverity of Illness Date: 01/31/17 Ms. Castle was evaluated in her room with her daughter present. She is transferring much better. Continues to complain of significant pain in the back as anticipated. Does not appear to be out of the realm of what we would anticipate at this time. Denies any nausea or vomiting. She initially stated that she needed to "catch my breath." However I asked her if she was short of breath and she denied that. This is more related to the constrictive feeling with the lumbar brace when she is sitting. Denies any chest pain. Denies any cough or sputum. Brief therapy update: For occupational therapy she is standby assist for upper body dressing. Requires contact guard assistance for lower body dressing. She is able to perform sit to stand transfers with standby assistance which is an improvement. For physical therapy she is able to ambulate 155 feet with contact guard assistance. She is able to climb 6 steps with maximum assistance. She is progressing with therapy. Update on medical issues we are actively monitoring and managin. Uncontrolled pain. Pain management appears to be improving. 2. Diabetes mellitus type 2: She has had no hypoglycemic spells. The patient is on oral agents. Blood sugars running around 200. 3. Hypertension: Blood pressures are variable. For the most part they seem to be reasonably well controlled. I imagine some elevations are due to pain medication. 4. Leukocytosis: Remains on cephalexin although white count has normalized. 5. Cognition: Continues to display some confusion episodes. It appears to be better than yesterday according to her daughter. She knows that she is in the [facility] rehabilitation unit. She knows her room number. She knows this is January 2017. Could not immediately remember the name of the president and called him "Deanna." Subsequently modify that to "Trump." Volunteered that she knows his 's name as well. Sodium improved at 127 which could be a factor in her cognition. 6. Hyponatremia: As noted, sodium has been low at 125 and is now 127. Appreciate hospitalists input. Does have low serum osmolality. Lasix was increased. Exam Vital Signs: Temperature 97.7 F 01/31/17 08:00 Pulse Rate 103 H 01/31/17 08:00 Respiratory Rate 16 01/31/17 08:00 Blood Pressure 135/68 01/31/17 08:00 Pulse Oximetry 97 01/31/17 08:00 Height/Weight/BMI: Height 1.59 m Weight 84.4 kg Body Mass Index 34.9 - Constitutional Present: well nourished, well developed, obese, cooperative Comments: Some slowness and cognition although I think it is better than yesterday. No slurred speech and no focal neurologic findings. - Routine HEENT Exam Eye: Present: EOMI ENT: Present: mucous membranes moist, dentition normal - Routine Neck Exam Present: supple - Routine Respiratory Exam Present: CTA bilaterally. Absent: wheezes - Routine Cardiovascular Exam Present: RRR, S1, S2, murmur (grade 2/6 systolic murmur second right interspace. May also be murmur along left sternal border.) - Routine Abdominal Exam Present: soft, normoactive bowel sounds, non distended. Absent: tenderness - Routine Extremities Exam Present: no edema, normal capillary refill - Routine Back/Spine/Pelvis Exam Back/Spine: Absent: full ROM - Routine Skin Exam Present: dry, warm - Routine Neurological Exam Present: alert, oriented X3 (as noted, some slowing in response but overall improved.), CN II-XII intact. Absent: sensory deficit, motor deficit - Routine Psychiatric Exam Present: normal affect Results IRU - Labs Labs: Have reviewed labs and other providers notes. IRU A/P (1) S/P lumbar laminectomy Current visit: Yes Status: Acute Patient continues to display significant pain in the back as anticipated. Does not appear to be beyond what we would anticipate at this time. She is progressing with therapy as noted. (2) Delirium Current visit: Yes Status: Acute Continues to have some slowness of response at times. However she seems to be more well oriented today. Likely this is multifactorial related to pain medication as well as the hyponatremia. (3) Hyponatremia Current visit: Yes Status: Acute Per hospitalists. Furosemide was increased. Sodium up to 127. (4) Diabetes mellitus type 2 in obese Current visit: Yes Status: Chronic (5) Leukocytosis Qualifiers: Leukocytosis type: unspecified Qualified Code(s): D72.829 - Elevated white blood cell count, unspecified Current visit: Yes Status: Resolved DVT Prophylaxis: SCD's Resuscitation Status: Full Code - Course Hospital Course: Chente Monroe MD: 01/30/17 11:15 Getting started with therapy. Confusion is an issue and carryover of education is questionable. White count is now normal. Sodium 125. 01/31/17 10:23 Cognition improved. Sodium improved to 127. Progressing with therapy. Pain as anticipated. - Interventions to Obtain Goals PT Treatment Plan: Balance/Proprioception, Functional Activities, Gait Training , Patient/Family Education, Therapeutic Exercise OT Treatment Plan: ADL (Basic Care), Balance Training, IADL, Pt./Family Education Goals Progress/Modifications: Time spent with patient and on floor reviewing data and documentin minutes. Barriers to dismissal: Cognition, hyponatremia, pain, endurance Medical decision-making: Patient's sodium is improved. Appreciate hospitalists input. Her cognition is continuing to be an issue although I think is slowly improving. I have globally reassessed her and feels though it is safe to continue therapy at this time. We will continue to closely monitor her sodium as well as pain management. Blood sugars are borderline elevated and will continue to be monitored.
[2017-01-31] MEDS: ASPIRIN 81 MG CHEWABLE TABLET PO SCH (12:19)
[2017-01-31] MEDS: AMLODIPINE/BENAZEPRIL 5mg/10mg CAPSULE PO SCH (12:19)
[2017-01-31] MEDS: FERROUS SULFATE 324 MG TABLET PO SCH (12:20)
--- NOTE | 2017-01-31 13:48 | IRU Team Meeting ---
IRU Team Meeting - Nursing Bladder Assistive Devices Utilized:: Absorbent Pad Bladder Management Level of Assist: Total Assistance Bladder Frequency of Accidents: No accidents Bowel Assistive Devices Utilized:: Medication Bowel Management Level of Assist: Minimal Assistance Vital Signs: Vital Signs - 24 hr 01/30/17 16:00 01/30/17 21:13 01/31/17 08:00 Temperature 98.0 F 97.4 F 97.7 F Pulse Rate 111 H 105 H 103 H Respiratory Rate 18 16 16 Blood Pressure 151/66 H 152/68 H 135/68 Pulse Oximetry 98 98 97 Current Medications: Al Hydroxide/Mg Carbonate (Mag Carb/Al Hydrox/Alginic Ac) 15 ml PO PRN PRN PRN Reason: Indigestion Last Admin: 01/30/17 12:25 Dose: 15 ml Amitriptyline HCl (Elavil) 10 mg PO HS [facility] Last Admin: 01/30/17 21:59 Dose: Not Given Amlodipine/Benazepril HCl (Lotrel) 1 cap PO 0630 [facility] Last Admin: 01/31/17 12:19 Dose: 1 cap Aspirin (Asa) 81 mg PO QMWF [facility] Last Admin: 01/31/17 12:19 Dose: 81 mg Atorvastatin Calcium (Lipitor) 10 mg PO HS [facility] Last Admin: 01/30/17 21:59 Dose: Not Given Bisacodyl (Dulcolax) 10 mg RECTALLY DAILY PRN PRN Reason: Constipation Calcium Carbonate (Calcium) 500 mg PO DAILY [facility] Last Admin: 01/31/17 09:05 Dose: 500 mg Cephalexin HCl (Keflex) 500 mg PO QID [facility] Last Admin: 01/31/17 09:05 Dose: 500 mg Cyclobenzaprine HCl (Flexeril) 10 mg PO Q8HR PRN PRN Reason: Muscle spasm Docusate Sodium (Colace) 300 mg PO DAILY [facility] Last Admin: 01/31/17 09:04 Dose: 300 mg Ferrous Sulfate (Feosol) 324 mg PO 1200 [facility] Last Admin: 01/31/17 12:20 Dose: 324 mg Fexofenadine HCl (Casie) 180 mg PO DAILY [facility] Last Admin: 01/31/17 09:05 Dose: 180 mg Furosemide (Lasix) 20 mg PO DAILY [facility] Last Admin: 01/31/17 09:06 Dose: 20 mg Glipizide (Glucotrol) 10 mg PO ACB30 [facility] Last Admin: 01/31/17 09:05 Dose: 10 mg Glipizide (Glucotrol) 5 mg PO 1700 [facility] Last Admin: 01/30/17 17:32 Dose: 5 mg Hyoscyamine (Levsin) 0.125 mg PO Q4HR PRN PRN Reason: FOR IRRITABLE BOWEL SYMPTOMS Levothyroxine Sodium (Synthroid) 125 mcg PO ACB [facility] Last Admin: 01/31/17 06:32 Dose: 125 mcg Magnesium Hydroxide (Mom) 30 ml PO DAILY PRN PRN Reason: Constipation Last Admin: 01/30/17 14:47 Dose: 30 ml Meclizine HCl (Antivert) 12.5 mg PO Q6H PRN PRN Reason: Dizziness Melatonin (Melatonin) 10 mg PO [facility] Last Admin: 01/30/17 21:59 Dose: Not Given Metformin HCl (Glucophage) 1,000 mg PO BIDWM [facility] Last Admin: 01/31/17 09:05 Dose: 1,000 mg Multivitamins (Theragran) 1 tab PO DAILY [facility] Last Admin: 01/31/17 09:06 Dose: 1 tab --Pom--(Cranberry Conc/Ascorbic Acid [ Cranberry Plus Vitamin 2 each PO DAILY [facility] Last Admin: 01/31/17 09:09 Dose: Not Given --Pom--(Valerian (Root 1,000 Mg)) 1,000 mg PO [facility] Last Admin: 01/30/17 21:59 Dose: Not Given --Pom--(Magnesium Carb/Aluminum Hydrox [Acid Gone Tablet Yoselin 2 tab PO Q6HR PRN PRN Reason: upset stomach Oxycodone/Acetaminophen (Percocet 10/325) 1 tab PO Q4HR PRN PRN Reason: Pain Polyethylene Glycol (Miralax) 17 gm PO DAILY [facility] Last Admin: 01/31/17 09:08 Dose: 17 gm Promethazine HCl (Phenergan Tab) 25 mg PO Q6HR PRN PRN Reason: Nausea &/or vomiting Last Admin: 01/30/17 17:33 Dose: 25 mg Senna (Senna Lax) 17.2 mg PO [facility] Last Admin: 01/30/17 21:59 Dose: Not Given Current Medical Issues: diabetes mellitus, hypertension, hyponatremia, pain management Comments: I certify that I personally led the interdisciplinary team meeting and agree with comments, barriers and goals indicated. Team meeting was held in the patient's room with the patient and the following family members present: patient's , patient's daughter Ms. Castle continues to struggle with pain management. Percocet 10 mg seems to not be enough while 2 of the tablets are over-sedating. We'll reduce this back to 1 tablet every 4 hours as needed and also use Flexeril as needed. She is cooperative with therapy. She does have occasional nausea. Patient does have history of hyponatremia. Has been states that she drinks a lot of water and we encouraged her not to do that. Does have some cognitive deficits which are attributed to pain medication plus hyponatremia. - Dietary Her intake has been reduced. She is nauseated part of the time and is on medication for this. Cause of the nausea is not clear but likely is multifactorial (pain, pain medication and possible reflux). Intake is being monitored and intervention will be undertaken. She is on a consistent carbohydrate 2000-calorie diet. She is eating about 25-50% of the meals. - Physical Therapy Bed, Chair, Wheelchair Transfer Assist: Stand By Assist/Supervision Ambulation Ability: Stand By Assist/Supervision Ambulation Distance: 255 Stair Climbing Ability: Maximal Assistance Number of Steps Climbed: 6 Car Transfer Ability: Moderate Assistance Comments: Patient is struggling with cognitive issues. She continues to require step-by- step cueing although tends to follow commands and improved manner. Her safety awareness is improved with fewer vocal commands required. She is making progress toward ambulation goal. - Occupational Therapy Eating Ability: Modified Independent Grooming Ability: Stand By Assist/Supervision Bathing Ability: Minimal Assistance Upper Body Dressing Ability: Stand By Assist/Supervision Lower Body Dressing Ability: Minimal Assistance Tub Transfer Assist: Patient Refuses Toileting Assist: Contact Guard Assistance Toilet Transfer Assist: Contact Guard Assistance Comments: Patient is very cooperative with occupational therapy. Does require cues. She is making progress toward goals although cognition is an issue. - Goals Physical Therapy Goals: 01/31/17 Goals: 1.) Mod I with amb going 250 feet. 2. ) SBA with bed mobility Occupational Therapy Goals: OT goals 01-31-17: 1.) LB dressing 07/18. 2.) Toileting 07/18. 3.) Family training on donning/doffing TLSO brace. - Barriers to Discharge Barriers to Attaining Goals: Comprehension, Pain Control - Care Plan Anticipated Length of Stay (days): 7 Anticipated Length of Stay: Reassess in one week Anticipated DC Destination: Home, Self Care, Home Health Service I have led this team conference and agree with the plan.
[2017-01-31] MEDS: GlipiZIDE 5 MG TABLET PO SCH (17:11)
[2017-01-31] MEDS: AMITRIPTYLINE 10 MG TABLET PO SCH (20:39)
[2017-01-31] MEDS: ATORVASTATIN 10 MG TABLET PO SCH (20:39)
[2017-01-31] MEDS: MELATONIN 5 MG TABLET PO SCH (20:40)
[2017-01-31] MEDS: VALERIAN ROOT PO SCH (20:41)
[2017-01-31] MEDS: SENNOSIDES 8.6 MG TABLET PO SCH (20:41)
[2017-02-01] MEDS: Oxycodone/Apap 10/325 1 TAB PO PRN ×4 (05:07→19:36)
[2017-02-01] MEDS: LEVOTHYROXINE 125 MCG TABLET PO SCH ×2 (05:07→06:55)
[2017-02-01] MEDS: AMLODIPINE/BENAZEPRIL 5mg/10mg CAPSULE PO SCH ×2 (05:07→06:55)
[2017-02-01] MEDS: METFORMIN 1,000 MG TABLET PO SCH ×2 (08:59→17:37)
[2017-02-01] MEDS: GlipiZIDE 5 MG TABLET PO SCH ×2 (08:59→17:37)
[2017-02-01] MEDS: FEXOFENADINE 180 MG TABLET PO SCH (09:01)
[2017-02-01] MEDS: POLYETHYL GLYCOL 3350 17gm PACKET PO SCH (09:01)
[2017-02-01] MEDS: DOCUSATE SODIUM 100 MG CAPSULE PO SCH (09:01)
[2017-02-01] MEDS: MULTI-VITAMIN PLAIN TABLET PO SCH (09:02)
[2017-02-01] MEDS: CALCIUM CARBONATE 500 MG TABLET PO SCH (09:02)
[2017-02-01] MEDS: FUROSEMIDE 20 MG TABLET PO SCH (09:03)
[2017-02-01] MEDS: ASCORBIC ACID PO SCH (12:24)
[2017-02-01] MEDS: CRANBERRY PO SCH (12:24)
[2017-02-01] MEDS: FERROUS SULFATE 324 MG TABLET PO SCH (12:25)
[2017-02-01] MEDS: ASPIRIN 81 MG CHEWABLE TABLET PO SCH (12:25)
--- NOTE | 2017-02-01 14:26 | Progress Note ---
- Date 02/01/17 Subjective: Mrs. Castle is seen today in follow up for her hyponatremia and her recent back surgery. She is seen while resting in bed with her daughter, Sophie, at the bedside. She awakens easily with soft touch and voice stimuli and reports that she is feeling better. She continues to complain of severe pain to her back and left side, currently 7/10, and states that it is worse with movement. She admits to working with therapy and states that she feels it is going well. Her appetite is improving but states that she continues to have occasional nausea with eating. Bowels are moving and nursing reported concern for black stools without obvious blood noted. Vital signs remain stable though blood pressure remains elevated at 145/70. Slight decrease in sodium today at 126 (127 on ). Family reports that she appears to be "more with it" today as compared to yesterday. Blood sugars remain variable with initial morning glucose at 64. Objective Vital signs: Temperature 98.0 F 02/01/17 08:00 Pulse Rate 99 02/01/17 08:00 Respiratory Rate 16 02/01/17 08:00 Blood Pressure 145/70 H 02/01/17 08:00 Pulse Oximetry 97 02/01/17 08:00 Height/Weight/BMI: Height 5 ft 2.5 in Weight 193 lb 1.999 oz Body Mass Index 33.5 Comments: Resting in bed with family at bedside and in no apparent distress. Alert and orientated x 3. - Constitutional Present: no acute distress, well nourished, well developed, obese, cooperative - Routine HEENT Exam Head: Present: normocephalic, atraumatic Eye: Present: PERRL. Absent: conjunctival icterus ENT: Present: mucous membranes moist Comments: frequently sips on water during exam and requests more water to drink. - Routine Respiratory Exam Present: CTA bilaterally. Absent: rales, respiratory distress, rhonchi, stridor , wheezes - Routine Cardiovascular Exam Present: RRR, S1, S2, murmur - Routine Abdominal Exam Present: soft, non tender, distended Comments: hypoactive bowel sounds; large bandage noted to abdomen which is clean, dry and intact; surgical incision not visualized on exam; no apparent erythema or red streaking noted to abdomen around bandage. - Routine Rectal Exam Comments: nursing reports black stool today without obvious blood. - Routine Extremities Exam Present: edema (2+ bilateral lower extremities), non tender, pulses intact Comments: SCDs in place on exam. - Routine Back/Spine/Pelvis Exam Back/Spine: Present: kyphosis, pain with flexion, pain with lateral flexion, pain with rotation Comments: limited exam due to patient resting in bed; surgical incision to back not visualized on exam though dressing was reportedly changed today. - Routine Musculoskeletal Exam Musculoskeletal: Present: no clubbing or cyanosis, limited range of motion ( secondary to back pain and movement limitations) - Routine Skin Exam Present: dry, warm. Absent: jaundice Comments: afebrile - Routine Neurological Exam Present: alert, oriented X3, moving all extremities, normal speech. Absent: facial asymmetry - Routine Lymphatic Exam Lymphatic: Absent: lymphedema - Routine Psychiatric Exam Present: cooperative Results - Labs CBC & Chem 7: 01/31/17 04:59 02/01/17 04:23 Assessment and Plan (1) S/P lumbar laminectomy Current visit: Yes Status: Acute Assessment and Plan: Assessment Hyponatremia - POA S/p lumbar laminectomy by Dr. Abdalla, 01/25/17. Diabetes Mellitus - Type 2, stable. HTN GERD Hypothyroidism Plan - 02/01/17 (Mirakian) Continue pain management and therapies per Dr. Monroe. Hyponatremia noted on admission. Na 126 today with calculated serum osmolality low at 243; Urine osmolality and urine random sodium 213 and 42 respectively on admission. Discussed with Dr. Slater. Will give additional Lasix 60mg po now with KCl 40 mEq po now due to increased fluids status as noted by increased daily weight and 2+ edema bilaterally. Will increase daily Lasix to 40mg BID and add KCl 20 mEq daily. Recheck BMP in AM to monitor electrolytes and renal function. Continue to monitor oral intake and daily weight closely. Patient noted to be drinking water frequently on exam. If additional Lasix does not improve hyponatremia, consider fluid restriction. Blood sugars have been variable with low at 41 and high at 206 since admission. More stable today with increased oral intake. Continue to monitor closely for hypoglycemia. Prior records indicate home dose of Glipizide at 10mg in AM and 5mg at 1700. Due to hypoglycemia, Glipizide was decreased from 10mg to 5mg in AM on 01/31 with evening Glipizide stable at 5mg. Will continue glipizide 5mg BID and metformin 1000mg BID. Blood pressure remains slightly elevated, but acceptable given her pain. We'll continue to monitor closely. Continue home amlodipine/benazepril 5/10 and Lasix 20mg daily. Will consult wound care to monitor surgical incisions and for dressing change recommendations. Back dressing changed 02/01/17 due to discharge on dressing. Continue Keflex 500mg QID per for treatment of common pathogens to surgical sites. Treatment course through 02/09/17. Black stools noted per nursing. Will recheck CBC in AM. If hemoglobin decreased, may consider obtaining fecal Hemoccult to assess for GI bleed. Will initiate Protonix daily for GI protection and history of GERD. Continue to provide safe and supportive environment. DVT Prophylaxis: SCD's GI Prophylaxis: Protonix Resuscitation Status: Full Code - Time spent with patient Time with patient PN: 35 minutes - Physician Narrative Physician: other (Dr. Slater) Narrative: Date: 02/01/17 Time: 1421 Hospital Course Summary Disclaimer: The visit summary below is not to be considered part of the above Progress Note. Hospital Course: Plan - 02/01/17 (Mirakian) Continue pain management and therapies per Dr. Monroe. Hyponatremia noted on admission. Na 126 today with calculated serum osmolality low at 243; Urine osmolality and urine random sodium 213 and 42 respectively on admission. Discussed with Dr. Slater. Will give additional Lasix 60mg po now with KCl 40 mEq po now due to increased fluids status as noted by increased daily weight and 2+ edema bilaterally. Will increase daily lasix to 40mg BID and add KCl 20 mEq daily. Recheck BMP in AM to monitor electrolytes and renal function. Continue to monitor oral intake and daily weight closely. Patient noted to be drinking water frequently on exam. If additional lasix does not improve hyponatremia, consider fluid restriction. Blood sugars have been variable with low at 41 and high at 206 since admission. More stable today with increased oral intake. Continue to monitor closely for hypoglycemia. Prior records indicate home dose of Glipizide at 10mg in AM and 5mg at 1700. Due to hypoglycemia, Glipizide was decreased from 10mg to 5mg in AM on 01/31 with evening Glipizide stable at 5mg. Will continue glipizide 5mg BID and metformin 1000mg BID. Blood pressure remains slightly elevated, but acceptable given her pain. We'll continue to monitor closely. Continue home amlodipine/benazepril 5/10 and Lasix 20mg daily. Will consult wound care to monitor surgical incisions and for dressing change recommendations. Back dressing changed 02/01/17 due to discharge on dressing. Continue Keflex 500mg QID per for treatment of common pathogens to surgical sites. Treatment course through 02/09/17. Continue to provide safe and supportive environment.
[2017-02-01] MEDS ORDERED: FUROSEMIDE 40 MG TABLET PO ONE (15:00)
[2017-02-01] MEDS: ATORVASTATIN 10 MG TABLET PO SCH (20:57)
[2017-02-01] MEDS: SENNOSIDES 8.6 MG TABLET PO SCH (20:57)
[2017-02-01] MEDS: MELATONIN 5 MG TABLET PO SCH (20:57)
[2017-02-01] MEDS: AMITRIPTYLINE 10 MG TABLET PO SCH (20:58)
[2017-02-01] MEDS: VALERIAN ROOT PO SCH (20:58)
[2017-02-01] MEDS: CYCLOBENZAPRINE 10 MG TABLET PO PRN (21:44)
[2017-02-01] MEDS: BENZOCAINE 20% HEMORRHOIDAL OINT 28 GM TOP PRN (21:45)
[2017-02-01] MEDS: DIAZEPAM 5 MG TABLET PO PRN (22:17)
[2017-02-02] MEDS: Oxycodone/Apap 10/325 1 TAB PO PRN ×5 (01:12→21:10)
[2017-02-02] MEDS: DIAZEPAM 5 MG TABLET PO PRN ×2 (04:47→09:54)
[2017-02-02] MEDS: AMLODIPINE/BENAZEPRIL 5mg/10mg CAPSULE PO SCH ×2 (05:22→19:00)
[2017-02-02] MEDS: PANTOPRAZOLE 20 MG TABLET PO SCH ×2 (05:23→19:00)
[2017-02-02] MEDS: LEVOTHYROXINE 125 MCG TABLET PO SCH ×2 (05:23→19:00)
[2017-02-02] MEDS ORDERED: FUROSEMIDE 40 MG TABLET PO SCH (08:00)
[2017-02-02] MEDS: GlipiZIDE 5 MG TABLET PO SCH ×2 (08:27→17:30)
[2017-02-02] MEDS: METFORMIN 1,000 MG TABLET PO SCH ×2 (08:28→17:30)
[2017-02-02] MEDS: CALCIUM CARBONATE 500 MG TABLET PO SCH (08:29)
[2017-02-02] MEDS: FEXOFENADINE 180 MG TABLET PO SCH (08:30)
[2017-02-02] MEDS: POLYETHYL GLYCOL 3350 17gm PACKET PO SCH (08:30)
[2017-02-02] MEDS: DOCUSATE SODIUM 100 MG CAPSULE PO SCH (08:30)
[2017-02-02] MEDS: CYCLOBENZAPRINE 10 MG TABLET PO PRN ×2 (08:31→21:12)
[2017-02-02] MEDS: MULTI-VITAMIN PLAIN TABLET PO SCH (08:31)
[2017-02-02] MEDS ORDERED: SULFAMETHOXAZOLE/TMP 800 MG/160 MG DS TABLET PO SCH (10:37)
--- NOTE | 2017-02-02 11:18 | Progress Note ---
- Date 02/02/17 Subjective: Mrs Castle is seen multiple times throughout this morning. Her biggest complaint is having leg cramps overnight that were severe at times. She was given 80 mg of Lasix yesterday for diuresis and this is likely the cause of the cramps. Back pain is mild- moderate. Abdominal incision looks good without erythema or drainage. Lumbar incision continues to have serous drainage this morning. No difficulty with urination, Nursing reported yesterday she had black stools. Objective Vital signs: Temperature 97.5 F 02/02/17 07:42 Pulse Rate 101 H 02/02/17 10:55 Respiratory Rate 16 02/02/17 10:55 Blood Pressure 135/62 02/02/17 10:55 Pulse Oximetry 93 02/02/17 10:55 Height/Weight/BMI: Height 1.59 m Weight 81.4 kg Body Mass Index 33.5 - Constitutional Present: no acute distress, well nourished, well developed - Routine HEENT Exam Eye: Present: EOMI ENT: Present: mucous membranes moist, dentition normal - Routine Respiratory Exam Present: CTA bilaterally. Absent: wheezes - Routine Cardiovascular Exam Present: RRR, S1, S2. Absent: murmur - Routine Abdominal Exam Present: soft, normoactive bowel sounds, non distended. Absent: tenderness - Routine Extremities Exam Present: normal capillary refill - Routine Skin Exam Present: intact, dry, warm Comments: Serous drainage from lumbar incision Anterior and posterior incisions examined - Routine Neurological Exam Present: alert, oriented X3, CN II-XII intact, moving all extremities - Routine Lymphatic Exam Lymphatic: Absent: adenopathy - Routine Psychiatric Exam Present: normal affect, cooperative Results - Labs CBC & Chem 7: 02/02/17 09:51 02/02/17 04:34 Microbiology Results: Microbiology 02/02/17 09:57 Peripheral/Iv Start Blood Culture - Preliminary Culture Initiated - Results Pending 02/02/17 09:51 Peripheral/Iv Start Blood Culture - Preliminary Culture Initiated - Results Pending Assessment and Plan (1) S/P lumbar laminectomy Current visit: Yes Status: Acute Assessment and Plan: Assessment Hyponatremia - POA Leukocytosis- onset 02/02 S/p lumbar laminectomy by Dr. Abdalla, 01/25/17. Diabetes Mellitus - Type 2, stable. HTN GERD Hypothyroidism Plan - 02/02 Following initial examination. Did speak with on-call spine surgeon, Dr. Rowdy Ndiaye (oncall for Dr Arambula) He recommended repeating CBC, obtaining CRP and sedimentation rate. He also recommended. Patient placed supine, Clean incision with alcohol and obtaining a wound culture from lumbar incision. Thick dressing with compression as per recommendation Will continue with Keflex 500 milligrams 4 times a day(through 02/09), he recommended adding Bactrim DS twice a day. Did speak with Abdirahman to confirm no previous wound culture was obtained during her stay. Place activity on hold today. Encourage patient to lie supine if possible. Obtain stool for occult blood. Given recent reported black stool. Hemoglobin remained stable. Protonix daily for GI protection. Lasix was decreased to baseline dose of 20 QD. Magnesium is normal at 1.6. Sodium did improve to 132. Continue to monitor Discussed case with attending, Nursing, Dr Monroe and Dr Ndiaye. 45 minutes spend with patient and coordination of care Will call Dr Ndiaye again this afternoon for update 02/02/2017-I reviewed this chart, the patient history, and the CURRENCY MACHINE OPERATOR's/PA's documented findings as above. We discussed and formulated the assessment and plan as above with the additions below.-Dr. Castañeda The patient was seen earlier this morning. At that time she was having fairly severe spasms in her legs. She denied any significant back pain. She denied abdominal pain. She was breathing without difficulties. On exam her lungs were clear bilaterally. Cardiovascular revealed a regular rate and rhythm. Abdomen was soft and nontender. Her abdominal incision looked clean and dry and without any significant drainage. Extremities were free of edema. I did later see the patient when she was supine so we could check her back incision. Her incision on her back also looks clean and dry and without any significant erythema. She had a minimal amount of drainage after incision was cleaned with alcohol. A wound culture was obtained. BENSON Lehman did speak again with Dr. Ndiaye and he recommended initiating vancomycin. Pharmacy will be consulted for vancomycin dosing and management. We'll continue to monitor the patient's CBC. Hemoccult stool was ordered 1 for an reported dark stool. The patient was reportedly feeling much better around lunchtime and her leg pain had resolved. Magnesium level was normal. We'll recheck his metabolic profile tomorrow regarding hyponatremia. - Physician Narrative Narrative: Date: 02/02/17 Time: 1113 Hospital Course Summary Disclaimer: The visit summary below is not to be considered part of the above Progress Note. Hospital Course: Plan - 02/01/17 (Mirmustaphaan) Continue pain management and therapies per Dr. Monroe. Hyponatremia noted on admission. Na 126 today with calculated serum osmolality low at 243; Urine osmolality and urine random sodium 213 and 42 respectively on admission. Discussed with Dr. Slater. Will give additional Lasix 60mg po now with KCl 40 mEq po now due to increased fluids status as noted by increased daily weight and 2+ edema bilaterally. Will increase daily lasix to 40mg BID and add KCl 20 mEq daily. Recheck BMP in AM to monitor electrolytes and renal function. Continue to monitor oral intake and daily weight closely. Patient noted to be drinking water frequently on exam. If additional lasix does not improve hyponatremia, consider fluid restriction. Blood sugars have been variable with low at 41 and high at 206 since admission. More stable today with increased oral intake. Continue to monitor closely for hypoglycemia. Prior records indicate home dose of Glipizide at 10mg in AM and 5mg at 1700. Due to hypoglycemia, Glipizide was decreased from 10mg to 5mg in AM on 01/31 with evening Glipizide stable at 5mg. Will continue glipizide 5mg BID and metformin 1000mg BID. Blood pressure remains slightly elevated, but acceptable given her pain. We'll continue to monitor closely. Continue home amlodipine/benazepril 5/10 and Lasix 20mg daily. Will consult wound care to monitor surgical incisions and for dressing change recommendations. Back dressing changed 02/01/17 due to discharge on dressing. Continue Keflex 500mg QID per for treatment of common pathogens to surgical sites. Treatment course through 02/09/17. Continue to provide safe and supportive environment. Plan - 02/02 Following initial examination. Did speak with on-call spine surgeon, Dr. Rowdy Ndiaye (oncall for Dr Arambula) He recommended repeating CBC, obtaining CRP and sedimentation rate. He also recommended. Patient placed supine, Clean incision with alcohol and obtaining a wound culture from lumbar incision. Thick dressing with compression as per recommendation Will continue with Keflex 500 milligrams 4 times a day(through 02/09), he recommended adding Bactrim DS twice a day. Did speak with Abdirahman to confirm no previous wound culture was obtained during her stay. Place activity on hold today. Encourage patient to lie supine if possible. Obtain stool for occult blood. Given recent reported black stool. Hemoglobin remained stable. Protonix daily for GI protection. Lasix was decreased to baseline dose of 20 QD. Magnesium is normal at 1.6. Sodium did improve to 132. Continue to monitor Discussed case with attending, Nursing, Dr Monroe and Dr Ndiaye. 45 minutes spend with patient and coordination of care Will call Dr Ndiaye again this afternoon for update
[2017-02-02] MEDS: ASCORBIC ACID PO SCH (11:27)
[2017-02-02] MEDS: CRANBERRY PO SCH (11:27)
[2017-02-02] MEDS: ASPIRIN 81 MG CHEWABLE TABLET PO SCH (12:06)
[2017-02-02] MEDS: FERROUS SULFATE 324 MG TABLET PO SCH (12:06)
[2017-02-02] MEDS ORDERED: VANCOMYCIN - PHARMACY CONSULT MC ONE (13:17)
[2017-02-02] MEDS: DIAZEPAM 2 MG TABLET PO PRN (14:33)
--- NOTE | 2017-02-02 14:50 | Pharmacy Consult-Antibiotics ---
Pharmacy Consult-Vancomycin - Laboratory Information WBC 17.9 T/MM3 (4.5-11.0) H 02/02/17 09:51 BUN 20.0 MG/DL (7-17) H 02/02/17 04:34 Creatinine 0.9 MG/DL (0.7-1.2) 02/02/17 04:34 - Consult Information VANCOMYCIN CONSULT: Dx: Infected wound Current Renal Function: S Cr = 0.9 mg/dl. Estimated Cr Cl ~ 47. I stared Vancomycin with a 1,500 mg bolus iv, then Vancomycin 1,000 mg iv every 12 hours thereafter. Thanks for the Vancomycin Protocol, Flash Recinos, Pharmacist.
[2017-02-02] MEDS: MELATONIN 5 MG TABLET PO SCH (21:09)
[2017-02-02] MEDS: ATORVASTATIN 10 MG TABLET PO SCH (21:09)
[2017-02-02] MEDS: SENNOSIDES 8.6 MG TABLET PO SCH (21:10)
[2017-02-02] MEDS: VALERIAN ROOT PO SCH (21:12)
[2017-02-03] MEDS: Oxycodone/Apap 10/325 1 TAB PO PRN ×5 (01:08→19:14)
[2017-02-03] MEDS: SALINE FLUSH 10ml SYRINGE IV PRN ×3 (03:06→08:11)
[2017-02-03] MEDS: CYCLOBENZAPRINE 10 MG TABLET PO PRN ×3 (05:06→21:35)
[2017-02-03] MEDS: LEVOTHYROXINE 125 MCG TABLET PO SCH ×2 (05:06→06:37)
[2017-02-03] MEDS: PANTOPRAZOLE 20 MG TABLET PO SCH ×2 (05:07→06:38)
[2017-02-03] MEDS: AMLODIPINE/BENAZEPRIL 5mg/10mg CAPSULE PO SCH ×2 (05:07→06:37)
[2017-02-03] MEDS: CRANBERRY PO SCH (07:59)
[2017-02-03] MEDS: ASCORBIC ACID PO SCH (07:59)
[2017-02-03] MEDS: METFORMIN 1,000 MG TABLET PO SCH ×2 (08:11→17:14)
[2017-02-03] MEDS: MULTI-VITAMIN PLAIN TABLET PO SCH (08:11)
[2017-02-03] MEDS: DOCUSATE SODIUM 100 MG CAPSULE PO SCH (08:11)
[2017-02-03] MEDS: GlipiZIDE 5 MG TABLET PO SCH ×2 (08:12→17:14)
[2017-02-03] MEDS: CALCIUM CARBONATE 500 MG TABLET PO SCH (08:13)
[2017-02-03] MEDS: POLYETHYL GLYCOL 3350 17gm PACKET PO SCH (08:13)
[2017-02-03] MEDS: FEXOFENADINE 180 MG TABLET PO SCH (08:13)
[2017-02-03] MEDS: FUROSEMIDE 20 MG TABLET PO SCH (09:22)
--- NOTE | 2017-02-03 09:52 | XRay Report ---
Indication: leukocytosis PROCEDURE: XR chest 1V: Encounter: Initial Comparison: January 15, 2017 Findings: Lungs are now hypoinflated with minimal basilar atelectasis. No lobar pneumonia, gross pleural effusion or pneumothorax. Heart size and mediastinal contours are within normal limits. Mild bronchovascular crowding. Impression: Hypoinflation. .
--- NOTE | 2017-02-03 10:22 | Progress Note ---
- Date 02/03/17 Subjective: Mrs Castle is seen today in follow up. She is up in the bed and states that she is feeling good. Overall she did rest better last night however had a short episode of leg cramps. Back pain is minimal currently. She denies having chest pain, shortness of breath or GI complains. Afebrile, vital signs normal. Objective Vital signs: Temperature 98.2 F 02/03/17 08:00 Pulse Rate 90 02/03/17 08:00 Respiratory Rate 18 02/03/17 08:00 Blood Pressure 139/74 02/03/17 08:00 Pulse Oximetry 98 02/03/17 08:00 Height/Weight/BMI: Height 1.59 m Weight 83.2 kg Body Mass Index 33.5 - Constitutional Present: no acute distress, well nourished, well developed - Routine HEENT Exam Eye: Present: EOMI ENT: Present: mucous membranes moist, dentition normal - Routine Respiratory Exam Present: CTA bilaterally. Absent: wheezes - Routine Cardiovascular Exam Present: RRR, S1, S2. Absent: murmur - Routine Abdominal Exam Present: soft, normoactive bowel sounds, non distended. Absent: tenderness - Routine Extremities Exam Present: normal capillary refill - Routine Skin Exam Present: intact, dry, warm - Routine Neurological Exam Present: alert, oriented X3, CN II-XII intact - Routine Lymphatic Exam Lymphatic: Absent: adenopathy - Routine Psychiatric Exam Present: normal affect, cooperative Results - Labs CBC & Chem 7: 02/03/17 05:16 02/03/17 05:16 Microbiology Results: Microbiology 02/02/17 09:51 Peripheral/Iv Start Blood Culture - Preliminary No Growth After 1 Day 02/02/17 09:57 Peripheral/Iv Start Blood Culture - Preliminary No Growth After 1 Day 02/02/17 11:22 Back Gram Stain - Final 02/02/17 11:22 Back Superficial Wound Culture - Preliminary Culture Initiated - Results Pending Assessment and Plan (1) S/P lumbar laminectomy Current visit: Yes Status: Acute Assessment and Plan: Assessment Hyponatremia - POA Leukocytosis- onset 02/02 S/p lumbar laminectomy by Dr. Abdalla, 01/25/17. Diabetes Mellitus - Type 2, stable. HTN GERD Hypothyroidism Plan - 02/03 Overall feeling good this morning. Leukocytosis improved down to 15 today. Continue on IV Vancomycin for antimicrobial coverage. Continue with PO Keflex also. Continue to monitor lumbar incision drainage. Wound and blood cultures pending. Lasix dosing remains at baseline 20 mg daily. Continue to encourage work with PT,OT for strengthening Will recheck CBC, BMP and magnesium tomorrow morning Stool for occult blood pending sample. Case discussed with attending - Physician Narrative Narrative: Date: 02/03/17 Time: 1018 Hospital Course Summary Disclaimer: The visit summary below is not to be considered part of the above Progress Note. Hospital Course: Plan - 02/01/17 ([place]) Continue pain management and therapies per Dr. Monroe. Hyponatremia noted on admission. Na 126 today with calculated serum osmolality low at 243; Urine osmolality and urine random sodium 213 and 42 respectively on admission. Discussed with Dr. Slater. Will give additional Lasix 60mg po now with KCl 40 mEq po now due to increased fluids status as noted by increased daily weight and 2+ edema bilaterally. Will increase daily lasix to 40mg BID and add KCl 20 mEq daily. Recheck BMP in AM to monitor electrolytes and renal function. Continue to monitor oral intake and daily weight closely. Patient noted to be drinking water frequently on exam. If additional lasix does not improve hyponatremia, consider fluid restriction. Blood sugars have been variable with low at 41 and high at 206 since admission. More stable today with increased oral intake. Continue to monitor closely for hypoglycemia. Prior records indicate home dose of Glipizide at 10mg in AM and 5mg at 1700. Due to hypoglycemia, Glipizide was decreased from 10mg to 5mg in AM on 01/31 with evening Glipizide stable at 5mg. Will continue glipizide 5mg BID and metformin 1000mg BID. Blood pressure remains slightly elevated, but acceptable given her pain. We'll continue to monitor closely. Continue home amlodipine/benazepril 5/10 and Lasix 20mg daily. Will consult wound care to monitor surgical incisions and for dressing change recommendations. Back dressing changed 02/01/17 due to discharge on dressing. Continue Keflex 500mg QID per for treatment of common pathogens to surgical sites. Treatment course through 02/09/17. Continue to provide safe and supportive environment. Plan - 02/02 Following initial examination. Did speak with on-call spine surgeon, Dr. Rowdy Ndiaye (oncall for Dr Arambula) He recommended repeating CBC, obtaining CRP and sedimentation rate. He also recommended. Patient placed supine, Clean incision with alcohol and obtaining a wound culture from lumbar incision. Thick dressing with compression as per recommendation Will continue with Keflex 500 milligrams 4 times a day(through 02/09), he recommended adding Bactrim DS twice a day. Did speak with Abdirahman to confirm no previous wound culture was obtained during her stay. Place activity on hold today. Encourage patient to lie supine if possible. Obtain stool for occult blood. Given recent reported black stool. Hemoglobin remained stable. Protonix daily for GI protection. Lasix was decreased to baseline dose of 20 QD. Magnesium is normal at 1.6. Sodium did improve to 132. Continue to monitor Discussed case with attending, Nursing, Dr Monroe and Dr Ndiaye. 45 minutes spend with patient and coordination of care Will call Dr Ndiaye again this afternoon for update Plan - 02/03 Overall feeling good this morning. Leukocytosis improved down to 15 today. Continue on IV Vancomycin for antimicrobial coverage. Continue with PO Keflex also. Continue to monitor lumbar incision drainage. Wound and blood cultures pending. Lasix dosing remains at baseline 20 mg daily. Continue to encourage work with PT,OT for strengthening Will recheck CBC, BMP and magnesium tomorrow morning Stool for occult blood pending sample. Case discussed with attending
[2017-02-03] MEDS: FERROUS SULFATE 324 MG TABLET PO SCH (11:51)
[2017-02-03] MEDS: ASPIRIN 81 MG CHEWABLE TABLET PO SCH (11:51)
[2017-02-03] MEDS: LACTOBACILLUS (15B cfu) CAPSULE PO SCH (17:14)
[2017-02-03] MEDS: SENNOSIDES 8.6 MG TABLET PO SCH (21:35)
[2017-02-03] MEDS: MELATONIN 5 MG TABLET PO SCH (21:35)
[2017-02-03] MEDS: ATORVASTATIN 10 MG TABLET PO SCH (21:35)
[2017-02-03] MEDS: VALERIAN ROOT PO SCH (21:36)
[2017-02-04] MEDS: Oxycodone/Apap 10/325 1 TAB PO PRN ×5 (01:02→19:31)
[2017-02-04] MEDS: CYCLOBENZAPRINE 10 MG TABLET PO PRN ×2 (05:10→17:18)
[2017-02-04] MEDS: LEVOTHYROXINE 125 MCG TABLET PO SCH ×2 (05:10→05:44)
[2017-02-04] MEDS: AMLODIPINE/BENAZEPRIL 5mg/10mg CAPSULE PO SCH ×2 (05:10→05:44)
[2017-02-04] MEDS: PANTOPRAZOLE 20 MG TABLET PO SCH ×2 (05:10→05:44)
[2017-02-04] MEDS: POLYETHYL GLYCOL 3350 17gm PACKET PO SCH (08:43)
[2017-02-04] MEDS: METFORMIN 1,000 MG TABLET PO SCH ×2 (08:45→17:17)
[2017-02-04] MEDS: FEXOFENADINE 180 MG TABLET PO SCH (08:45)
[2017-02-04] MEDS: CALCIUM CARBONATE 500 MG TABLET PO SCH (08:45)
[2017-02-04] MEDS: GlipiZIDE 5 MG TABLET PO SCH ×2 (08:46→17:17)
[2017-02-04] MEDS: MULTI-VITAMIN PLAIN TABLET PO SCH (08:47)
[2017-02-04] MEDS: DOCUSATE SODIUM 100 MG CAPSULE PO SCH (08:47)
[2017-02-04] MEDS: FUROSEMIDE 20 MG TABLET PO SCH ×2 (08:56→11:39)
[2017-02-04] MEDS: LACTOBACILLUS (15B cfu) CAPSULE PO SCH ×2 (08:58→17:18)
--- NOTE | 2017-02-04 09:33 | Pharmacy Consult-Antibiotics ---
Pharmacy Consult-Vancomycin - Laboratory Information WBC 16.1 T/MM3 (4.5-11.0) H 02/04/17 01:26 BUN 24.0 MG/DL (7-17) H 02/04/17 01:26 Creatinine 1.1 MG/DL (0.7-1.2) 02/04/17 01:26 Procalcitonin 0.16 NG/ML 02/02/17 12:55 Vancomycin Trough 22.45 UG/ML (15-20) H* 02/04/17 01:26 76yo F admitted to IRU S/P Lumbar Laminectomy, with Leukocytosis. Antibiotic coverage with IV Vancomycin + oral Cephalexin. Renal Fx is stable. Vanco trough is high. 0300 dose this am was held. Will continue to hold therapy to allow trough to come down. Restart Vancomycin at 1200 today with 1250mg IV q 18 hour regimen. This gives calculated peak/trough of 54/18. Trough goal = 15-20mcg/ml Will continue to monitor therapy and adjust dosing regimen to remain in target range. Thank you
--- NOTE | 2017-02-04 09:53 | IRU Progress Note ---
- Subjective/Serverity of Illness Date: 02/04/17 Ms. Castle was evaluated on the inpatient rehabilitation unit. She complains of bilateral leg cramps or spasms. These come on suddenly and without provocation. She says they last a few seconds but are intense. We'll order diazepam but unfortunately that seems to make her too sleepy. She also is concerned that she is not getting her pain medications rapidly enough. Pain primarily is in the back. The patient has some drainage from the low back when. She has a brace on and she is sitting up at the present time so I was not able to observe that. Hospitalist service has evaluated that. Her white count remains elevated at 16, 000 which is up slightly from yesterday. She is on vancomycin with pharmacy dosing and monitoring. Level of bit high at 22. Brief therapy update: Patient is cooperative with occupational therapy and physical therapy. However she does display decreased strength and endurance. Update on medical issues we are actively monitoring and managin. Uncontrolled pain. We continued to have difficulty balancing pain relief with avoidance of over sedation. 2. Diabetes mellitus type 2: Blood sugars are reviewed. She is on oral agents. 3. Hypertension: Blood pressures are reviewed and are running around 140. 4. Leukocytosis: White count did increase to 16,000. She is on vancomycin and oral cephalexin. We will review drainage momentarily. 5. Cognition: Cognition appears to be improved. 6. Hyponatremia: Sodium has normalized at 134. Exam Vital Signs: Temperature 97.5 F 02/04/17 08:00 Pulse Rate 94 02/04/17 08:00 Respiratory Rate 16 02/04/17 08:00 Blood Pressure 147/79 H 02/04/17 08:00 Pulse Oximetry 97 02/04/17 08:00 Height/Weight/BMI: Height 1.59 m Weight 83.2 kg Body Mass Index 33.5 - Constitutional Comments: The patient is awake, alert and oriented and in no acute distress. Pupils are equal. The neck is supple. Chest: Clear to auscultation bilaterally. Cor: RR with no gallop. Systolic murmur present as before. Abd: soft with normo-active bowel sounds. There are no masses, no tenderness and no guarding. Extremities: No edema is noted. I will inspect back wound momentarily.. Results IRU - Labs Labs: labs, vital signs and other provider notes reviewed. IRU A/P (1) S/P lumbar laminectomy Current visit: Yes Status: Acute Continues to have difficulty with pain management. There is some drainage. Please see subsequent notes in this regard. She is on vancomycin. Wounds demonstrating no growth at present. (2) Delirium Current visit: Yes Status: Acute Her cognition appears to be improved. (3) Hyponatremia Current visit: Yes Status: Resolved (4) Diabetes mellitus type 2 in obese Current visit: Yes Status: Chronic Blood sugars demonstrate improved control. (5) Leukocytosis Qualifiers: Leukocytosis type: unspecified Qualified Code(s): D72.829 - Elevated white blood cell count, unspecified Current visit: Yes Status: Resolved DVT Prophylaxis: SCD's Resuscitation Status: Full Code - Course Hospital Course: Chente Monroe MD: 01/30/17 11:15 Getting started with therapy. Confusion is an issue and carryover of education is questionable. White count is now normal. Sodium 125. 01/31/17 10:23 Cognition improved. Sodium improved to 127. Progressing with therapy. Pain as anticipated. 02/04/17 09:56 She is now on vancomycin plus oral cephalexin. White count remains elevated at 16,000. Hospitalists are following. - Interventions to Obtain Goals PT Treatment Plan: Balance/Proprioception, Functional Activities, Gait Training , Patient/Family Education, Therapeutic Exercise OT Treatment Plan: ADL (Basic Care), Balance Training, IADL, Pt./Family Education Goals Progress/Modifications: Time spent with patient and on floor reviewing data and documentin min Barriers to dismissal: pain, muscle cramps, weakness Medical decision-making: I have reassessed her situation. She does have leukocytosis and drainage. She is on antibiotics. Hospitalists are following. Cultures currently negative. However she does have elevated sedimentation rate and CRP. It is safe to continue therapy at this time. She is having some muscle cramps in her legs. However diazepam is over sedating at even 2 mg. Difficult pain management noted.
[2017-02-04] MEDS: ASCORBIC ACID PO SCH (12:08)
[2017-02-04] MEDS: CRANBERRY PO SCH (12:08)
[2017-02-04] MEDS: FERROUS SULFATE 324 MG TABLET PO SCH (12:23)
[2017-02-04] MEDS: ASPIRIN 81 MG CHEWABLE TABLET PO SCH (12:23)
--- NOTE | 2017-02-04 14:19 | Progress Note ---
- Date 02/04/17 Subjective: Patient seen in her room sitting on her bed. She c/o pain. States she needs the Percocet every 4 hours. Says pain "hovers around a 7 or 8." Appetite is improving. Bowels are moving. She has black stools but is on iron. Recent hemoccult was neg. No CP, SOA, n/v. Objective Vital signs: Temperature 97.5 F 02/04/17 08:00 Pulse Rate 94 02/04/17 08:00 Respiratory Rate 16 02/04/17 08:00 Blood Pressure 147/79 H 02/04/17 08:00 Pulse Oximetry 97 02/04/17 08:00 Height/Weight/BMI: Height 1.59 m Weight 83.2 kg Body Mass Index 33.5 - Constitutional Present: no acute distress, well nourished, well developed - Routine Respiratory Exam Present: CTA bilaterally. Absent: wheezes - Routine Cardiovascular Exam Present: RRR, murmur - Routine Abdominal Exam Present: soft, normoactive bowel sounds, non distended. Absent: tenderness Comments: incision on abdomen is healing nicely . No drainage or sign of infection. - Routine Extremities Exam Present: edema (1+), normal capillary refill - Routine Skin Exam Present: dry, warm Comments: incision on back is not actively draining, no fluctuance or purulence. There is pinkish/brown serous drainage note on inferior 1/3 of gauze that was covering the wound.Overall, looks good - no signs of gross infection. NO dehiscence. - Routine Neurological Exam Present: alert - Routine Lymphatic Exam Lymphatic: Absent: adenopathy - Routine Psychiatric Exam Present: normal affect, cooperative Results - Labs CBC & Chem 7: 02/04/17 01:26 02/04/17 01:26 Microbiology Results: Microbiology 02/02/17 11:22 Back Gram Stain - Final 02/02/17 11:22 Back Superficial Wound Culture - Preliminary No Growth After 2 Days 02/02/17 09:57 Peripheral/Iv Start Blood Culture - Preliminary No Growth After 2 Days 02/02/17 09:51 Peripheral/Iv Start Blood Culture - Preliminary No Growth After 2 Days Assessment and Plan (1) S/P lumbar laminectomy Current visit: Yes Status: Acute Assessment and Plan: Assessment Hyponatremia - POA - resolved Hyperkalemia - not POA Thrombocytosis - not POA Leukocytosis- onset 02/02 S/p lumbar laminectomy by Dr. Abdalla, 01/25/17. Diabetes Mellitus - Type 2, stable. HTN GERD Hypothyroidism Plan - 02/04 WBC 17.0-->15.2-->16.1, but no bands today and neutrophils are decreasing. Continue on IV Vancomycin and PO Keflex for antimicrobial coverage. Will need to decide soon if we are going to continue the vancomycin, and if so she will need a midline or PICC line. Continue to monitor lumbar incision drainage. Wound and blood cultures pending. Lasix dosing remains at baseline 20 mg daily. She had been refusing Lasix which is likely why her potassium is high. Her potassium is on hold and she will take her Lasix. Continue to encourage work with PT,OT for strengthening Check iron studies given her steady increase in platelet count. Repeat CBC and BMP in am to follow WBC, platelets, and electrolytes. Pain control per Dr. Monroe 02/04/2017-I reviewed this chart, the patient history, and the [employer]EM[employer]'s/PA's documented findings as above. We discussed and formulated the assessment and plan as above with the additions below.-Dr. Castañeda The patient was seen in the dining [place] where she was visiting with multiple family members. She was sitting up in a chair and stated she was comfortable. Her only complaint is of leg spasms at night. She states they're very severe. She states the only thing that helps is the Valium. She denies any significant pain in her low back. She denies any abdominal pain. She is eating and drinking well. On exam she is alert and in no acute distress. Chest is clear to auscultation. Cardiovascular reveals a regular rate and rhythm. Extremities are free of edema. She has a large back brace on. I did not look at her incisions today. Dr. Monroe and my physician mail handler assistant both inspected them today and it sounds like they're looking good. Impression and plan Elevated white count with possible wound infection. Vancomycin initiated. May need to place PICC line if she will need prolonged vancomycin. If she has leg spasms, would recommend Valium unless she already sedated or hypotensive or bradycardic. Discussed with patient's nurse. - Physician Narrative Narrative: Date: 02/04/17 Time: 1416 Hospital Course Summary Disclaimer: The visit summary below is not to be considered part of the above Progress Note. Hospital Course: Plan - 02/01/17 ([place]) Continue pain management and therapies per Dr. Monroe. Hyponatremia noted on admission. Na 126 today with calculated serum osmolality low at 243; Urine osmolality and urine random sodium 213 and 42 respectively on admission. Discussed with Dr. Slater. Will give additional Lasix 60mg po now with KCl 40 mEq po now due to increased fluids status as noted by increased daily weight and 2+ edema bilaterally. Will increase daily lasix to 40mg BID and add KCl 20 mEq daily. Recheck BMP in AM to monitor electrolytes and renal function. Continue to monitor oral intake and daily weight closely. Patient noted to be drinking water frequently on exam. If additional lasix does not improve hyponatremia, consider fluid restriction. Blood sugars have been variable with low at 41 and high at 206 since admission. More stable today with increased oral intake. Continue to monitor closely for hypoglycemia. Prior records indicate home dose of Glipizide at 10mg in AM and 5mg at 1700. Due to hypoglycemia, Glipizide was decreased from 10mg to 5mg in AM on 01/31 with evening Glipizide stable at 5mg. Will continue glipizide 5mg BID and metformin 1000mg BID. Blood pressure remains slightly elevated, but acceptable given her pain. We'll continue to monitor closely. Continue home amlodipine/benazepril 5/10 and Lasix 20mg daily. Will consult wound care to monitor surgical incisions and for dressing change recommendations. Back dressing changed 02/01/17 due to discharge on dressing. Continue Keflex 500mg QID per for treatment of common pathogens to surgical sites. Treatment course through 02/09/17. Continue to provide safe and supportive environment. Plan - 02/02 Following initial examination. Did speak with on-call spine surgeon, Dr. Rowdy Ndiaye (oncall for Dr Arambula) He recommended repeating CBC, obtaining CRP and sedimentation rate. He also recommended. Patient placed supine, Clean incision with alcohol and obtaining a wound culture from lumbar incision. Thick dressing with compression as per recommendation Will continue with Keflex 500 milligrams 4 times a day(through 02/09), he recommended adding Bactrim DS twice a day. Did speak with Abdirahman to confirm no previous wound culture was obtained during her stay. Place activity on hold today. Encourage patient to lie supine if possible. Obtain stool for occult blood. Given recent reported black stool. Hemoglobin remained stable. Protonix daily for GI protection. Lasix was decreased to baseline dose of 20 QD. Magnesium is normal at 1.6. Sodium did improve to 132. Continue to monitor Discussed case with attending, Nursing, Dr Monroe and Dr Ndiaye. 45 minutes spend with patient and coordination of care Will call Dr Ndiaye again this afternoon for update Plan - 02/03 Overall feeling good this morning. Leukocytosis improved down to 15 today. Continue on IV Vancomycin for antimicrobial coverage. Continue with PO Keflex also. Continue to monitor lumbar incision drainage. Wound and blood cultures pending. Lasix dosing remains at baseline 20 mg daily. Continue to encourage work with PT,OT for strengthening Will recheck CBC, BMP and magnesium tomorrow morning Stool for occult blood pending sample. Case discussed with attending 02/04/17 WBC 17.0-->15.2-->16.1, but no bands today and neutrophils are decreasing. Continue on IV Vancomycin and PO Keflex for antimicrobial coverage. Continue to monitor lumbar incision drainage. Wound and blood cultures pending. Lasix dosing remains at baseline 20 mg daily. She had been refusing Lasix which is likely why her potassium is high. Her potassium is on hold and she will take her Lasix. Continue to encourage work with PT,OT for strengthening Check iron studies given her steady increase in platelet count. Repeat CBC and BMP in am to follow WBC, platelets, and electrolytes. Pain control per Dr. Monroe.
[2017-02-04] MEDS: MELATONIN 5 MG TABLET PO SCH (21:14)
[2017-02-04] MEDS: ATORVASTATIN 10 MG TABLET PO SCH (21:14)
[2017-02-04] MEDS: SENNOSIDES 8.6 MG TABLET PO SCH (21:14)
[2017-02-04] MEDS: VALERIAN ROOT PO SCH (21:15)
[2017-02-04] MEDS: DIAZEPAM 2 MG TABLET PO PRN (22:46)
[2017-02-05] MEDS: Oxycodone/Apap 10/325 1 TAB PO PRN ×6 (00:42→23:47)
[2017-02-05] MEDS: CYCLOBENZAPRINE 10 MG TABLET PO PRN ×3 (02:32→19:19)
[2017-02-05] MEDS: DIAZEPAM 2 MG TABLET PO PRN (04:11)
[2017-02-05] MEDS: POLYETHYL GLYCOL 3350 17gm PACKET PO SCH (08:02)
[2017-02-05] MEDS: METFORMIN 1,000 MG TABLET PO SCH ×2 (08:03→17:30)
[2017-02-05] MEDS: DOCUSATE SODIUM 100 MG CAPSULE PO SCH (08:03)
[2017-02-05] MEDS: FEXOFENADINE 180 MG TABLET PO SCH (08:03)
[2017-02-05] MEDS: AMLODIPINE/BENAZEPRIL 5mg/10mg CAPSULE PO SCH (08:03)
[2017-02-05] MEDS: FUROSEMIDE 20 MG TABLET PO SCH (08:03)
[2017-02-05] MEDS: MULTI-VITAMIN PLAIN TABLET PO SCH (08:03)
[2017-02-05] MEDS: CALCIUM CARBONATE 500 MG TABLET PO SCH (08:03)
[2017-02-05] MEDS: PANTOPRAZOLE 20 MG TABLET PO SCH (08:04)
[2017-02-05] MEDS: LACTOBACILLUS (15B cfu) CAPSULE PO SCH ×2 (08:04→17:29)
[2017-02-05] MEDS: LEVOTHYROXINE 125 MCG TABLET PO SCH (08:04)
[2017-02-05] MEDS: CRANBERRY PO SCH (08:05)
[2017-02-05] MEDS: ASCORBIC ACID PO SCH (08:05)
--- NOTE | 2017-02-05 09:58 | Infectious Disease Consult ---
Infectious Disease Consult Date of Consultation: 02/05/17 Requesting Physician: Jay Siddiqui Reason for Consultation: antibiotic recs History of Present Illness: Ms. Castle is a 76 y/o woman who underwent back surgery by Dr. Abdalla on for spinal stenosis. This was a fusion and laminectomy with L2-L3 and L4-L5 laminectomy, use of autograft through same incision as well as posterior instrumentation. She was transferred her to IRU for rehab on 01/29/17. She has had pain and difficulty getting up from sitting, but she tells me that her pain is gradually improving. She has had some serous drainage from her lumbar incision. She was on cephalexin 500mg po QID on admission here. She has had persistent leukocytosis. On 02/02, there was some concern about this persistent drainage and Christine Irving APRN, spoke with Dr. Stephen Ndiaye, the production machine shop supervisor doctor for Dr. Abdalla, and he recommended checking a CRP, wound culture and starting Vancomycin. Today I've been asked to help with her antibiotics. She reports that she's feeling ok and denies any systemic symptoms. Her lumbar drainage is serous and appears to be decreasing, and her pain is decreasing. Her WBC, which was normal on admission, has increased and has remained elevated (15-17K) despite the antibiotics. CRP was 114, procalcitonin was 0.14. The wound culture is negative, but the gram stain showed few GPC. Blood cultures are NGTD. Medications Home Medications Medication Instructions Recorded Confirmed Type Amitriptyline [Elavil] 1 tab PO HS 01/29/17 01/29/17 History Amlodipine Besylate/Benazepril 1 each PO 0630 01/29/17 01/29/17 History [Lotrel 5-10 mg Capsule] Aspirin Chewable [ASA] 81 mg PO QMWF 01/29/17 01/29/17 History Atorvastatin [Lipitor] 1 tab PO HS 01/29/17 01/29/17 History Calcium Carb,Gluc/Mag Ox,Gluc 1 each PO DAILY 01/29/17 01/29/17 History [Calcium Magnesium Caplet] CephALEXin [Keflex] 1 tab PO QID 01/29/17 01/29/17 History Cranberry Conc/Ascorbic Acid 2 each PO DAILY 01/29/17 01/29/17 History [Cranberry Plus Vitamin C Sftgl] Cyclobenzaprine [Flexeril] 1 tab PO Q8HR PRN 01/29/17 01/29/17 History Docusate Sodium [Colace] 3 cap PO DAILY 01/29/17 01/29/17 History Esomeprazole Magnesium [Nexium] 20 mg PO 0630 01/29/17 01/29/17 History Ferrous Sulfate 325 mg PO 1200 01/29/17 01/29/17 History Fexofenadine [Casie] 180 mg PO DAILY 01/29/17 01/29/17 History Furosemide [Lasix] 1 tab PO DAILY 01/29/17 01/29/17 History Hyoscyamine Sulfate 0.125 mg PO Q4HR PRN 01/29/17 01/29/17 History Levothyroxine Tab [Synthroid] 125 mcg PO ACB 01/29/17 01/29/17 History Magnesium Carb/Aluminum Hydrox 2 tab PO Q6HR PRN 01/29/17 01/29/17 History [Acid Gone Tablet Chew] Melatonin 10 mg PO HS 01/29/17 01/29/17 History Metformin [Glucophage] 500 mg PO BIDWM 01/29/17 01/29/17 History Multivitamin [Multivitamins] 1 each PO DAILY 01/29/17 01/29/17 History Oxycodone/Apap 10/325 [Percocet 1 - 2 tab PO Q4HR PRN 01/29/17 01/29/17 History 10/325] Promethazine HCl 25 mg PO Q6HR PRN 01/29/17 01/29/17 History Valerian Root 1,000 mg PO HS 01/29/17 01/29/17 History glipiZIDE [Glipizide] 10 mg PO BID 01/29/17 01/29/17 History Allergies Allergy/AdvReac Type Severity Reaction Status Date / Time erythromycin base Allergy Intermediate RASH Verified 12/29/11 15:44 codeine Allergy Unknown Verified 12/29/11 15:44 celecoxib AdvReac Mild INCREASE Verified 12/29/11 15:44 IN BLOOD PRESSURE duloxetine AdvReac Mild HALLUCINATI Verified 12/29/11 15:44 ONS ether AdvReac Mild NAUSEA/VOMI Verified 12/29/11 15:44 T gabapentin AdvReac Mild "SPACEY" Verified 12/29/11 15:44 morphine AdvReac Mild HALLUCINATI Verified 12/29/11 15:44 ONS PFSH Patient Stated Medical History Cataracts Yes Diabetes Mellitus Type 2 Yes Constipation No Gastroesophageal Reflux Yes Disease Other GI Yes: IBS Hx Incontinence No Hx Urinary Tract Infection Yes MRSA Yes Surgical History: 1. Anterior cervical approach to laminectomy, Dr. Sam Awan. 2. Current lumbar laminectomy, posterior instrumentation and bone graft. 3. Cholecystectomy. 4. Hysterectomy without BS&O. 5. Appendectomy. 6. Tonsillectomy and adenoidectomy. 7. Bilateral cataract procedure Family History: Patient's father is with alcoholism and "hardening of the arteries. Her mother is with heart disease, with report of "angina." - Social History Smoking status: Former smoker (smoked 15 years. 1/2ppd or less) Substance use type: does not use Alcohol intake frequency: former alcohol drinker Current occupational status: retired Review of Systems All systems PM: 10-point ROS was reviewed, no additional remarkable complaints except - Constitutional Constitutional: Absent: chills, fever(s), night sweats - Cardiovascular Cardiovascular: Absent: chest pain - Respiratory Respiratory: Absent: cough, dyspnea - Gastrointestinal Gastrointestinal: Absent: diarrhea, nausea, vomiting - Musculoskeletal Musculoskeletal: Present: back pain (improving) - Neurological Neurological: Absent: headache(s) Exam Vital Signs: Temperature 97.7 F 02/05/17 07:04 Pulse Rate 86 02/05/17 07:04 Respiratory Rate 16 02/05/17 07:04 Blood Pressure 137/59 02/05/17 07:04 Pulse Oximetry 97 02/05/17 07:04 Height/Weight/BMI: Height 1.59 m Weight 83.2 kg Body Mass Index 33.5 - Constitutional Present: no acute distress, well nourished, well developed - Routine HEENT Exam Head: Present: normocephalic, atraumatic Eye: Present: EOMI, PERRL ENT: Present: mucous membranes moist, dentition normal - Routine Neck Exam Present: supple - Routine Respiratory Exam Present: CTA bilaterally - Routine Cardiovascular Exam Present: RRR - Routine Abdominal Exam Present: soft (obese), normoactive bowel sounds, non distended, non tender Comments: anterior abdominal wound is intact without erythema, or drainage - Routine Extremities Exam Absent: cyanosis, clubbing, edema - Routine Skin Exam Absent: rash Comments: Lumbar incision is intact, although there are a couple spots that are not fully healed yet. There is no significant erythema around the incision, no significant point tenderness, no drainage can be expressed. - Routine Neurological Exam Present: alert, oriented X3, CN II-XII intact. Absent: motor deficit - Routine Psychiatric Exam Present: normal affect, normal thought process Results - Labs CBC & Chem 7: 02/05/17 05:06 02/05/17 06:51 Microbiology Results: Microbiology 02/02/17 11:22 Back Gram Stain - few GPC 02/02/17 11:22 Back Superficial Wound Culture - Preliminary No Growth After 2 Days 02/02/17 09:57 Peripheral/Iv Start Blood Culture - Preliminary No Growth After 2 Days 02/02/17 09:51 Peripheral/Iv Start Blood Culture - Preliminary No Growth After 2 Days Impression: Spinal stenosis s/p L2-3 and L4-5 fusion and laminectomy, use of autograft through same incision as well as posterior instrumentation on 01/25/17. Leukocytosis, thrombocytosis, and elevated CRP. DM II, not IR Hypothyroidism Back pain, post-operative Recommendation: It's not clear why she continues to have leukocytosis and elevated acute phase reactants, but her incision does not look infected. I would recommend stopping the Vancomycin, and continuing the oral cephalexin until she follow up with Dr. Ellington, which would probably be in a few days. Will repeat her CRP.
[2017-02-05] MEDS: GlipiZIDE 5 MG TABLET PO SCH ×2 (10:12→17:30)
--- NOTE | 2017-02-05 11:49 | Progress Note ---
- Date 02/05/17 Subjective: Patient seen in conjunction with Dr. Bowman. Pt states her pain is improving overall. She has no fevers. She has an occasional sharp pain which she describes as shooting down both of her legs. No CP, SOA, n/v. Objective Vital signs: Temperature 97.7 F 02/05/17 07:04 Pulse Rate 86 02/05/17 07:04 Respiratory Rate 16 02/05/17 07:04 Blood Pressure 137/59 02/05/17 07:04 Pulse Oximetry 97 02/05/17 07:04 Height/Weight/BMI: Height 1.59 m Weight 83.2 kg Body Mass Index 33.5 - Constitutional Present: no acute distress, well nourished, well developed - Routine Respiratory Exam Present: CTA bilaterally. Absent: wheezes - Routine Cardiovascular Exam Present: RRR. Absent: murmur - Routine Abdominal Exam Present: soft, normoactive bowel sounds, non distended. Absent: tenderness - Routine Extremities Exam Present: no edema, normal capillary refill - Routine Skin Exam Present: dry, warm Comments: incision on back with no tenderness or active drainage. THere is serous drainage on the bandage, but no sign of purulence. Wound is overall healing. No fluctuance or significant redness. Wound on abdomen without drainage. No redness. Looks good. - Routine Neurological Exam Present: alert, oriented X3 - Routine Lymphatic Exam Lymphatic: Absent: adenopathy - Routine Psychiatric Exam Present: normal affect, cooperative Results - Labs CBC & Chem 7: 02/05/17 05:06 02/05/17 12:50 Microbiology Results: Microbiology 02/02/17 11:22 Back Gram Stain - Final 02/02/17 11:22 Back Superficial Wound Culture - Final No Growth After 3 Days 02/02/17 09:51 Peripheral/Iv Start Blood Culture - Preliminary No Growth After 3 Days 02/02/17 09:57 Peripheral/Iv Start Blood Culture - Preliminary No Growth After 3 Days Assessment and Plan (1) S/P lumbar laminectomy Current visit: Yes Status: Acute Assessment and Plan: Assessment Hyponatremia - POA - resolved Hyperkalemia - not POA Thrombocytosis - not POA Leukocytosis- onset 02/02 S/p lumbar laminectomy by Dr. Abdalla, 01/25/17. Diabetes Mellitus - Type 2, stable. HTN GERD Hypothyroidism Plan WBC has not improved on vanc. Dr. Bowman (ID) assessed patient and recommends DC vanc given her WBC has not improved, her incision does not look infected and clinically she is improving. She recommended to continue the Keflex until patient follows up with Dr. Abdalla. It is unclear why she continues to have leukocytosis and elevated acute phase reactants, but her CRP is improving. Her wound and blood cultures have been neg. Potassium is elevated 4.7-->5.2-->5.6 today . Specimen was hemolyzed. Will repeat potassium level. - Physician Narrative Narrative: Date: 02/05/17 Time: 1145 Hospital Course Summary Disclaimer: The visit summary below is not to be considered part of the above Progress Note. Hospital Course: Plan - 02/01/17 ([place]) Continue pain management and therapies per Dr. Monroe. Hyponatremia noted on admission. Na 126 today with calculated serum osmolality low at 243; Urine osmolality and urine random sodium 213 and 42 respectively on admission. Discussed with Dr. Slater. Will give additional Lasix 60mg po now with KCl 40 mEq po now due to increased fluids status as noted by increased daily weight and 2+ edema bilaterally. Will increase daily lasix to 40mg BID and add KCl 20 mEq daily. Recheck BMP in AM to monitor electrolytes and renal function. Continue to monitor oral intake and daily weight closely. Patient noted to be drinking water frequently on exam. If additional lasix does not improve hyponatremia, consider fluid restriction. Blood sugars have been variable with low at 41 and high at 206 since admission. More stable today with increased oral intake. Continue to monitor closely for hypoglycemia. Prior records indicate home dose of Glipizide at 10mg in AM and 5mg at 1700. Due to hypoglycemia, Glipizide was decreased from 10mg to 5mg in AM on 01/31 with evening Glipizide stable at 5mg. Will continue glipizide 5mg BID and metformin 1000mg BID. Blood pressure remains slightly elevated, but acceptable given her pain. We'll continue to monitor closely. Continue home amlodipine/benazepril 5/10 and Lasix 20mg daily. Will consult wound care to monitor surgical incisions and for dressing change recommendations. Back dressing changed 02/01/17 due to discharge on dressing. Continue Keflex 500mg QID per for treatment of common pathogens to surgical sites. Treatment course through 02/09/17. Continue to provide safe and supportive environment. Plan - 02/02 Following initial examination. Did speak with on-call spine surgeon, Dr. Rowdy Ndiaye (oncall for Dr Arambula) He recommended repeating CBC, obtaining CRP and sedimentation rate. He also recommended. Patient placed supine, Clean incision with alcohol and obtaining a wound culture from lumbar incision. Thick dressing with compression as per recommendation Will continue with Keflex 500 milligrams 4 times a day(through 02/09), he recommended adding Bactrim DS twice a day. Did speak with Abdirahman to confirm no previous wound culture was obtained during her stay. Place activity on hold today. Encourage patient to lie supine if possible. Obtain stool for occult blood. Given recent reported black stool. Hemoglobin remained stable. Protonix daily for GI protection. Lasix was decreased to baseline dose of 20 QD. Magnesium is normal at 1.6. Sodium did improve to 132. Continue to monitor Discussed case with attending, Nursing, Dr Monroe and Dr Ndiaye. 45 minutes spend with patient and coordination of care Will call Dr Ndiaye again this afternoon for update Plan - 02/03 Overall feeling good this morning. Leukocytosis improved down to 15 today. Continue on IV Vancomycin for antimicrobial coverage. Continue with PO Keflex also. Continue to monitor lumbar incision drainage. Wound and blood cultures pending. Lasix dosing remains at baseline 20 mg daily. Continue to encourage work with PT,OT for strengthening Will recheck CBC, BMP and magnesium tomorrow morning Stool for occult blood pending sample. Case discussed with attending 02/04/17 WBC 17.0-->15.2-->16.1, but no bands today and neutrophils are decreasing. Continue on IV Vancomycin and PO Keflex for antimicrobial coverage. Continue to monitor lumbar incision drainage. Wound and blood cultures pending. Lasix dosing remains at baseline 20 mg daily. She had been refusing Lasix which is likely why her potassium is high. Her potassium is on hold and she will take her Lasix. Continue to encourage work with PT,OT for strengthening Check iron studies given her steady increase in platelet count. Repeat CBC and BMP in am to follow WBC, platelets, and electrolytes. Pain control per Dr. Monroe. 02/05/17 WBC has not improved on vanc. Dr. Bowman (ID) assessed patient and recommends DC vanc given her WBC has not improved, her incision does not look infected and clinically she is improving. She recommended to continue the Keflex until patient follows up with Dr. Abdalla. It is unclear why she continues to have leukocytosis and elevated acute phase reactants, but her CRP is improving. Her wound and blood cultures have been neg. Potassium is elevated 4.7-->5.2-->5.6 today . Specimen was hemolyzed. Will repeat potassium level
[2017-02-05] MEDS: ASPIRIN 81 MG CHEWABLE TABLET PO SCH (12:35)
[2017-02-05] MEDS: FERROUS SULFATE 324 MG TABLET PO SCH (12:38)
--- NOTE | 2017-02-05 13:23 | IRU Progress Note ---
- Subjective/Serverity of Illness Date: 02/05/17 Hui was seen in her room with her and daughter present. She has displayed some disinterest in educational opportunities from occupational therapy. She complains that people will not do things for her. I did review with her the fact that we are preparing her to go home to be independent and that she will need to take care of herself at home ultimately. She continues to complain of spasms in her legs, particularly at nighttime. In addition she wants to use Flexeril plus or Percocet at the same time. She denies any nausea or vomiting. She has no chest pain or shortness of breath. Brief therapy update: She is improving with regard to upper body dressing. Again there is the perception that she will receive assistance at home and we tried to encourage her to move toward independence. Update on medical issues we are actively monitoring and managin. Uncontrolled pain. She has been more awake and alert. She continues to request Flexeril plus Percocet on a regular basis. 2. Diabetes mellitus type 2: Blood sugars are reviewed. Overall they are improved. Occasional values around 200. 3. Hypertension: Blood pressures running a bit high at over 140. Likely this is related to her pain situation. 4. Leukocytosis: Appreciate input of infectious disease. She is now off vancomycin. Leukocytosis remains at 17,000. Repeat CRP improved. No evidence of wound infection. Etiology of her leukocytosis not clear. Remains on cephalexin for a few more days. 5. Cognition: According to her family she has had no further episodes of confusion etc. 6. Hyponatremia: Sodium has normalized at 134. Exam Vital Signs: Temperature 97.7 F 02/05/17 07:04 Pulse Rate 86 02/05/17 07:04 Respiratory Rate 16 02/05/17 07:04 Blood Pressure 137/59 02/05/17 07:04 Pulse Oximetry 97 02/05/17 07:04 Height/Weight/BMI: Height 1.59 m Weight 83.2 kg Body Mass Index 33.5 - Constitutional Present: mild distress, well nourished, well developed, obese Comments: Some disinterest in educational opportunities noted by occupational therapy. - Routine HEENT Exam Head: Present: normocephalic, atraumatic Eye: Present: EOMI ENT: Present: mucous membranes moist, dentition normal - Routine Neck Exam Present: supple, full ROM - Routine Respiratory Exam Present: CTA bilaterally. Absent: dyspnea, respiratory distress, rhonchi, wheezes - Routine Cardiovascular Exam Present: RRR, S1, S2. Absent: murmur - Routine Abdominal Exam Present: soft, normoactive bowel sounds, non distended. Absent: tenderness Results IRU - Labs Labs: Reviewed other providers notes, labs and vital signs. IRU A/P (1) S/P lumbar laminectomy Current visit: Yes Status: Acute Pain management continues to be an issue. She is working with physical therapy. She is "looser" and less tight with hopefully less muscle spasms. Progress noted with upper body dressing. Some disinterest in educational opportunities per occupational therapy. (2) Delirium Current visit: Yes Status: Resolved Her delirium has cleared. Likely this was related to pain medication. (3) Hyponatremia Current visit: Yes Status: Resolved (4) Diabetes mellitus type 2 in obese Current visit: Yes Status: Chronic Blood sugars are improved overall. (5) Leukocytosis Qualifiers: Leukocytosis type: unspecified Qualified Code(s): D72.829 - Elevated white blood cell count, unspecified Current visit: Yes Status: Acute White count remains elevated at 17,000. Etiology not clear. CRP is improved. Was seen by Dr. Bowman and vancomycin discontinued. Remains on a few more days of cephalexin. DVT Prophylaxis: SCD's Resuscitation Status: Full Code - Course Hospital Course: Chente Monroe MD: 01/30/17 11:15 Getting started with therapy. Confusion is an issue and carryover of education is questionable. White count is now normal. Sodium 125. 01/31/17 10:23 Cognition improved. Sodium improved to 127. Progressing with therapy. Pain as anticipated. 02/04/17 09:56 She is now on vancomycin plus oral cephalexin. White count remains elevated at 16,000. Hospitalists are following. 02/05/17 13:[address] Bowman. Vancomycin discontinued. White count still elevated at 17,000 of uncertain etiology. Making progress with therapy - Interventions to Obtain Goals PT Treatment Plan: Balance/Proprioception, Functional Activities, Gait Training , Patient/Family Education, Therapeutic Exercise OT Treatment Plan: ADL (Basic Care), Balance Training, IADL, Pt./Family Education Goals Progress/Modifications: Time spent with patient and on floor reviewing data and documentin min Barriers to dismissal: Strength, endurance, pain Medical decision-making: Spent considerable time with patient and family today. She is under the impression that she will get additional help at home and does not understand why we will not assist her more here. In addition she requests Percocet plus Flexeril at the same time. I am concerned about this and would prefer this be spaced out to avoid oversedation. She has had delirium in the past with this and at the present time her mental status has cleared. Appreciate input of infectious disease. Vancomycin has been discontinued. We will continue therapy. Occupational therapy notes disinterest on the part of the patient went for education in this will be monitored. We encouraged her to move toward a more independent attitude so that she can be safely dismissed to her home environment.
--- NOTE | 2017-02-05 15:27 | Progress Note ---
Progress Note: Dr Abdalla's nurse called to check in on patient. Lab and clinical info given to nurse. He will see pt again on Feb 13 at 11:15. Nurse states she will give info to Dr. Abdalla and call back tomorrow if he has any recommendations.
[2017-02-05] MEDS: BENZOCAINE 20% HEMORRHOIDAL OINT 28 GM TOP PRN (19:28)
[2017-02-05] MEDS: ATORVASTATIN 10 MG TABLET PO SCH ×2 (19:46→20:55)
[2017-02-05] MEDS: MELATONIN 5 MG TABLET PO SCH ×2 (19:46→20:55)
[2017-02-05] MEDS: SENNOSIDES 8.6 MG TABLET PO SCH ×2 (19:47→20:55)
[2017-02-05] MEDS: VALERIAN ROOT PO SCH (20:56)
[2017-02-06] MEDS: AMLODIPINE/BENAZEPRIL 5mg/10mg CAPSULE PO SCH ×2 (04:56→05:58)
[2017-02-06] MEDS: Oxycodone/Apap 10/325 1 TAB PO PRN ×5 (04:57→22:03)
[2017-02-06] MEDS: LEVOTHYROXINE 125 MCG TABLET PO SCH ×2 (04:57→05:59)
[2017-02-06] MEDS: CYCLOBENZAPRINE 10 MG TABLET PO PRN ×3 (04:57→22:04)
[2017-02-06] MEDS: PANTOPRAZOLE 20 MG TABLET PO SCH ×2 (04:58→05:59)
[2017-02-06] MEDS: METFORMIN 1,000 MG TABLET PO SCH ×2 (08:07→17:26)
[2017-02-06] MEDS: DOCUSATE SODIUM 100 MG CAPSULE PO SCH (08:07)
[2017-02-06] MEDS: FEXOFENADINE 180 MG TABLET PO SCH (08:07)
[2017-02-06] MEDS: LACTOBACILLUS (15B cfu) CAPSULE PO SCH ×2 (08:07→17:26)
[2017-02-06] MEDS: CALCIUM CARBONATE 500 MG TABLET PO SCH (08:08)
[2017-02-06] MEDS: ASCORBIC ACID PO SCH (08:09)
[2017-02-06] MEDS: CRANBERRY PO SCH (08:09)
[2017-02-06] MEDS: FUROSEMIDE 20 MG TABLET PO SCH (08:09)
[2017-02-06] MEDS: GlipiZIDE 5 MG TABLET PO SCH ×2 (08:09→17:26)
[2017-02-06] MEDS: POLYETHYL GLYCOL 3350 17gm PACKET PO SCH (08:11)
[2017-02-06] MEDS: MULTI-VITAMIN PLAIN TABLET PO SCH (08:57)
[2017-02-06 11:12] VITALS: BMI 33.1
[2017-02-06] MEDS: FERROUS SULFATE 324 MG TABLET PO SCH (12:59)
[2017-02-06] MEDS: ASPIRIN 81 MG CHEWABLE TABLET PO SCH (12:59)
--- NOTE | 2017-02-06 16:32 | Progress Note ---
- Date 02/06/17 Subjective: Patient is seen sitting in her room. She doesn't feel her pain is worsening. Rates pain 6-8/10. No fever. No CP, SOA, diarrhea. Objective Vital signs: Temperature 97.7 F 02/06/17 15:53 Pulse Rate 103 H 02/06/17 15:53 Respiratory Rate 18 02/06/17 15:53 Blood Pressure 138/62 02/06/17 15:53 Pulse Oximetry 99 02/06/17 15:53 Height/Weight/BMI: Height 1.59 m Weight 83.5 kg Body Mass Index 33.1 - Constitutional Present: well nourished, well developed - Routine Respiratory Exam Present: CTA bilaterally. Absent: wheezes - Routine Cardiovascular Exam Present: RRR. Absent: murmur - Routine Abdominal Exam Present: soft, normoactive bowel sounds, non distended. Absent: tenderness - Routine Extremities Exam Present: edema (trace b/l), normal capillary refill - Routine Skin Exam Present: dry, warm - Routine Neurological Exam Present: alert, oriented X3 - Routine Lymphatic Exam Lymphatic: Absent: adenopathy - Routine Psychiatric Exam Present: normal affect, cooperative Results - Labs CBC & Chem 7: 02/06/17 09:11 02/06/17 09:11 Microbiology Results: Microbiology 02/02/17 09:51 Peripheral/Iv Start Blood Culture - Preliminary No Growth After 4 Days 02/02/17 09:57 Peripheral/Iv Start Blood Culture - Preliminary No Growth After 4 Days 02/02/17 11:22 Back Gram Stain - Final 02/02/17 11:22 Back Superficial Wound Culture - Final No Growth After 3 Days Assessment and Plan (1) S/P lumbar laminectomy Current visit: Yes Status: Acute Assessment and Plan: Assessment Hyponatremia - POA - resolved Hyperkalemia - not POA Thrombocytosis - not POA Leukocytosis- onset 02/02 S/p lumbar laminectomy by Dr. Abdalla, 01/25/17. Diabetes Mellitus - Type 2, stable. HTN GERD Hypothyroidism Plan WBC down from 17.2 to 14.2. Platelets continue to climb 734-->878. Discussed with Dr Blanco. He thinks this is acute phase reactant reaction and states people can go above 1,000,000. Recommends continued monitoring, but no further w-u or tx at this time - Physician Narrative Narrative: Date: 02/06/17 Time: 1629 Hospital Course Summary Disclaimer: The visit summary below is not to be considered part of the above Progress Note. Hospital Course: Plan - 02/01/17 ([place]) Continue pain management and therapies per Dr. Monroe. Hyponatremia noted on admission. Na 126 today with calculated serum osmolality low at 243; Urine osmolality and urine random sodium 213 and 42 respectively on admission. Discussed with Dr. Slater. Will give additional Lasix 60mg po now with KCl 40 mEq po now due to increased fluids status as noted by increased daily weight and 2+ edema bilaterally. Will increase daily lasix to 40mg BID and add KCl 20 mEq daily. Recheck BMP in AM to monitor electrolytes and renal function. Continue to monitor oral intake and daily weight closely. Patient noted to be drinking water frequently on exam. If additional lasix does not improve hyponatremia, consider fluid restriction. Blood sugars have been variable with low at 41 and high at 206 since admission. More stable today with increased oral intake. Continue to monitor closely for hypoglycemia. Prior records indicate home dose of Glipizide at 10mg in AM and 5mg at 1700. Due to hypoglycemia, Glipizide was decreased from 10mg to 5mg in AM on 01/31 with evening Glipizide stable at 5mg. Will continue glipizide 5mg BID and metformin 1000mg BID. Blood pressure remains slightly elevated, but acceptable given her pain. We'll continue to monitor closely. Continue home amlodipine/benazepril 5/10 and Lasix 20mg daily. Will consult wound care to monitor surgical incisions and for dressing change recommendations. Back dressing changed 02/01/17 due to discharge on dressing. Continue Keflex 500mg QID per for treatment of common pathogens to surgical sites. Treatment course through 02/09/17. Continue to provide safe and supportive environment. Plan - 02/02 Following initial examination. Did speak with on-call spine surgeon, Dr. Rowdy Ndiaye (oncall for Dr Arambula) He recommended repeating CBC, obtaining CRP and sedimentation rate. He also recommended. Patient placed supine, Clean incision with alcohol and obtaining a wound culture from lumbar incision. Thick dressing with compression as per recommendation Will continue with Keflex 500 milligrams 4 times a day(through 02/09), he recommended adding Bactrim DS twice a day. Did speak with Abdirahman to confirm no previous wound culture was obtained during her stay. Place activity on hold today. Encourage patient to lie supine if possible. Obtain stool for occult blood. Given recent reported black stool. Hemoglobin remained stable. Protonix daily for GI protection. Lasix was decreased to baseline dose of 20 QD. Magnesium is normal at 1.6. Sodium did improve to 132. Continue to monitor Discussed case with attending, Nursing, Dr Monroe and Dr Ndiaye. 45 minutes spend with patient and coordination of care Will call Dr Ndiaye again this afternoon for update Plan - 02/03 Overall feeling good this morning. Leukocytosis improved down to 15 today. Continue on IV Vancomycin for antimicrobial coverage. Continue with PO Keflex also. Continue to monitor lumbar incision drainage. Wound and blood cultures pending. Lasix dosing remains at baseline 20 mg daily. Continue to encourage work with PT,OT for strengthening Will recheck CBC, BMP and magnesium tomorrow morning Stool for occult blood pending sample. Case discussed with attending 02/04/17 WBC 17.0-->15.2-->16.1, but no bands today and neutrophils are decreasing. Continue on IV Vancomycin and PO Keflex for antimicrobial coverage. Continue to monitor lumbar incision drainage. Wound and blood cultures pending. Lasix dosing remains at baseline 20 mg daily. She had been refusing Lasix which is likely why her potassium is high. Her potassium is on hold and she will take her Lasix. Continue to encourage work with PT,OT for strengthening Check iron studies given her steady increase in platelet count. Repeat CBC and BMP in am to follow WBC, platelets, and electrolytes. Pain control per Dr. Monroe. 02/05/17 WBC has not improved on vanc. Dr. Bowman (ID) assessed patient and recommends DC vanc given her WBC has not improved, her incision does not look infected and clinically she is improving. She recommended to continue the Keflex until patient follows up with Dr. Abdalla. It is unclear why she continues to have leukocytosis and elevated acute phase reactants, but her CRP is improving. Her wound and blood cultures have been neg. Potassium is elevated 4.7-->5.2-->5.6 today . Specimen was hemolyzed. Will repeat potassium level
[2017-02-06] MEDS: MELATONIN 5 MG TABLET PO SCH (20:15)
[2017-02-06] MEDS: ATORVASTATIN 10 MG TABLET PO SCH (20:16)
[2017-02-06] MEDS: SENNOSIDES 8.6 MG TABLET PO SCH (20:16)
[2017-02-06] MEDS: VALERIAN ROOT PO SCH (20:17)
[2017-02-07] MEDS: Oxycodone/Apap 10/325 1 TAB PO PRN ×6 (02:31→22:38)
[2017-02-07] MEDS: AMLODIPINE/BENAZEPRIL 5mg/10mg CAPSULE PO SCH (06:18)
[2017-02-07] MEDS: LEVOTHYROXINE 125 MCG TABLET PO SCH (06:19)
[2017-02-07] MEDS: PANTOPRAZOLE 20 MG TABLET PO SCH (06:19)
[2017-02-07] MEDS: CYCLOBENZAPRINE 10 MG TABLET PO PRN ×3 (06:20→22:05)
[2017-02-07] MEDS: POLYETHYL GLYCOL 3350 17gm PACKET PO SCH (08:03)
[2017-02-07] MEDS: LACTOBACILLUS (15B cfu) CAPSULE PO SCH ×2 (08:04→17:59)
[2017-02-07] MEDS: GlipiZIDE 5 MG TABLET PO SCH ×2 (08:04→17:59)
[2017-02-07] MEDS: METFORMIN 1,000 MG TABLET PO SCH ×2 (08:04→17:55)
[2017-02-07] MEDS: ASPIRIN 81 MG CHEWABLE TABLET PO SCH (08:05)
[2017-02-07] MEDS: DOCUSATE SODIUM 100 MG CAPSULE PO SCH (08:05)
[2017-02-07] MEDS: CALCIUM CARBONATE 500 MG TABLET PO SCH (08:05)
[2017-02-07] MEDS: FEXOFENADINE 180 MG TABLET PO SCH (08:06)
[2017-02-07] MEDS: MULTI-VITAMIN PLAIN TABLET PO SCH (08:06)
[2017-02-07] MEDS: FUROSEMIDE 20 MG TABLET PO SCH (08:06)
--- NOTE | 2017-02-07 10:52 | IRU Progress Note ---
- Subjective/Serverity of Illness Date: 02/07/17 Hui was seen in her room with her daughter present. Dressing has been changed this morning. I did review cell phone pictures of the back and abdominal wounds. They both look great. No significant redness is seen. Still has some drainage however on the dressing. Pain continues to be the primary issue. She does not wish to do any exercise until she has had her pain medications for 15-20 minutes. She says that her appetite is good. She does not have any diarrhea. She denies any shortness of breath or chest pain. Brief therapy update: For occupational therapy she is more cooperative and willing to listen to educational recommendations. She is now performing upper and lower body dressing with minimal assistance. For physical therapy she was able to walk 220 feet with standby assist with a front-wheeled walker. Update on medical issues we are actively monitoring and managin. Uncontrolled pain. I think the current regimen is about as good as we can do. Continues to complain of pain at about a 6 out of 10 intensity. 2. Diabetes mellitus type 2: Blood sugars continue to be monitored and are significantly improved. 3. Hypertension: Blood pressures overall are well controlled. 4. Leukocytosis: White count improved at 14,000. Thrombocytosis noted. Wounds look fine. 5. Cognition: According to her family she has had no further episodes of confusion etc. 6. Hyponatremia: Resolved. Exam Vital Signs: Temperature 97.6 F 02/07/17 08:00 Pulse Rate 86 02/07/17 08:00 Respiratory Rate 18 02/07/17 08:00 Blood Pressure 137/67 02/07/17 08:00 Pulse Oximetry 91 02/07/17 08:00 Height/Weight/BMI: Height 1.59 m Weight 83.5 kg Body Mass Index 33.1 - Constitutional Present: well nourished, well developed, obese, cooperative - Routine HEENT Exam Eye: Present: EOMI ENT: Present: mucous membranes moist, dentition normal - Routine Neck Exam Present: supple - Routine Respiratory Exam Present: CTA bilaterally. Absent: wheezes - Routine Cardiovascular Exam Present: RRR, S1, S2, S3, S4. Absent: murmur - Routine Abdominal Exam Present: soft, normoactive bowel sounds, non distended. Absent: tenderness - Routine Extremities Exam Present: edema (trace edema both ankles.) - Routine Skin Exam Present: wounds (reviewed good pictures of both anterior and posterior wounds. No inflammation noted. Some drainage still present on dressing.) - Routine Neurological Exam Present: alert, oriented X3, CN II-XII intact Results IRU - Labs Labs: Reviewed labs as well as other providers notes. IRU A/P (1) S/P lumbar laminectomy Current visit: Yes Status: Acute Wounds are doing well. Pain management is improving. Progress seems to be limited however on the basis of pain. (2) Delirium Current visit: Yes Status: Resolved (3) Hyponatremia Current visit: Yes Status: Resolved (4) Diabetes mellitus type 2 in obese Current visit: Yes Status: Chronic Much improved blood sugar control at present. (5) Leukocytosis Qualifiers: Leukocytosis type: unspecified Qualified Code(s): D72.829 - Elevated white blood cell count, unspecified Current visit: Yes Status: Acute Her white count is improved at 14,000. Thrombocytosis noted. DVT Prophylaxis: SCD's Resuscitation Status: Full Code - Course Hospital Course: Chente Monroe MD: 01/30/17 11:15 Getting started with therapy. Confusion is an issue and carryover of education is questionable. White count is now normal. Sodium 125. 01/31/17 10:23 Cognition improved. Sodium improved to 127. Progressing with therapy. Pain as anticipated. 02/04/17 09:56 She is now on vancomycin plus oral cephalexin. White count remains elevated at 16,000. Hospitalists are following. 02/05/17 13:[address] Bowman. Vancomycin discontinued. White count still elevated at 17,000 of uncertain etiology. Making progress with therapy 02/07/17 10:57 Wounds appear to be benign although there is some drainage. White count improved at 14,000. Afebrile. Cooperative with therapy although not terribly aggressive with personal care. - Interventions to Obtain Goals PT Treatment Plan: Balance/Proprioception, Functional Activities, Gait Training , Patient/Family Education, Therapeutic Exercise OT Treatment Plan: ADL (Basic Care), Balance Training, IADL, Pt./Family Education
[2017-02-07] MEDS: CRANBERRY PO SCH (12:16)
[2017-02-07] MEDS: ASCORBIC ACID PO SCH (12:16)
[2017-02-07] MEDS: FERROUS SULFATE 324 MG TABLET PO SCH (12:17)
--- NOTE | 2017-02-07 13:41 | IRU Team Meeting ---
IRU Team Meeting - Nursing Bladder Assistive Devices Utilized:: Absorbent Pad Bladder Management Level of Assist: Modified Independent Bladder Frequency of Accidents: 1 accident this shift Number of Bladder Accidents: 1 Bowel Assistive Devices Utilized:: Medication Bowel Management Level of Assist: Modified Independent Bowel Frequency of Accidents: No accidents Vital Signs: Vital Signs - 24 hr 02/06/17 15:53 02/06/17 19:53 02/07/17 08:00 Temperature 97.7 F 97.7 F 97.6 F Pulse Rate 103 H 98 86 Respiratory Rate 18 16 18 Blood Pressure 138/62 151/66 H 137/67 Pulse Oximetry 99 99 91 Current Medications: Al Hydroxide/Mg Carbonate (Mag Carb/Al Hydrox/Alginic Ac) 15 ml PO PRN PRN PRN Reason: Indigestion Last Admin: 01/30/17 12:25 Dose: 15 ml Amlodipine/Benazepril HCl (Lotrel) 1 cap PO 0630 [facility] Last Admin: 02/07/17 06:18 Dose: 1 cap Aspirin (Asa) 81 mg PO DAILY [facility] Last Admin: 02/07/17 08:05 Dose: 81 mg Atorvastatin Calcium (Lipitor) 10 mg PO HS [facility] Last Admin: 02/06/17 20:16 Dose: 10 mg Benzocaine (Preparation H) 1 applic TOP Q4H PRN PRN Reason: Hemorrhoids Last Admin: 02/05/17 19:28 Dose: 1 applic Bisacodyl (Dulcolax) 10 mg RECTALLY DAILY PRN PRN Reason: Constipation Calcium Carbonate (Calcium) 500 mg PO DAILY [facility] Last Admin: 02/07/17 08:05 Dose: 500 mg Cephalexin HCl (Keflex) 500 mg PO QID [facility] Last Admin: 02/07/17 12:17 Dose: 500 mg Cyclobenzaprine HCl (Flexeril) 10 mg PO Q8HR PRN PRN Reason: Muscle spasm Last Admin: 02/07/17 06:20 Dose: 10 mg Diazepam (Valium) 2 mg PO Q4H PRN Last Admin: 02/05/17 04:11 Dose: 2 mg Docusate Sodium (Colace) 300 mg PO DAILY [facility] Last Admin: 02/07/17 08:05 Dose: 300 mg Ferrous Sulfate (Feosol) 324 mg PO 1200 [facility] Last Admin: 02/07/17 12:17 Dose: 324 mg Fexofenadine HCl (Casie) 180 mg PO DAILY [facility] Last Admin: 02/07/17 08:06 Dose: 180 mg Furosemide (Lasix) 20 mg PO DAILY [facility] Last Admin: 02/07/17 08:06 Dose: 20 mg Glipizide (Glucotrol) 5 mg PO 1700 [facility] Last Admin: 02/06/17 17:26 Dose: 5 mg Glipizide (Glucotrol) 5 mg PO ACB30 [facility] Last Admin: 02/07/17 08:04 Dose: 5 mg Hyoscyamine (Levsin) 0.125 mg PO Q4HR PRN PRN Reason: FOR IRRITABLE BOWEL SYMPTOMS Lactobacillus Acidophilus (Culturelle) 2 cap PO BIDWM [facility] Last Admin: 02/07/17 08:04 Dose: 2 cap Levothyroxine Sodium (Synthroid) 125 mcg PO ACB [facility] Last Admin: 02/07/17 06:19 Dose: 125 mcg Magnesium Hydroxide (Mom) 30 ml PO DAILY PRN PRN Reason: Constipation Last Admin: 01/30/17 14:47 Dose: 30 ml Meclizine HCl (Antivert) 12.5 mg PO Q6H PRN PRN Reason: Dizziness Melatonin (Melatonin) 10 mg PO [facility] Last Admin: 02/06/17 20:15 Dose: 10 mg Metformin HCl (Glucophage) 1,000 mg PO BIDWM [facility] Last Admin: 02/07/17 08:04 Dose: 1,000 mg Multivitamins (Theragran) 1 tab PO DAILY [facility] Last Admin: 02/07/17 08:06 Dose: 1 tab --Pom--(Cranberry Conc/Ascorbic Acid [ Cranberry Plus Vitamin 2 each PO DAILY [facility] Last Admin: 02/07/17 12:16 Dose: Not Given --Pom--(Valerian (Root 1,000 Mg)) 1,000 mg PO [facility] Last Admin: 02/06/17 20:17 Dose: 1,000 mg --Pom--(Magnesium Carb/Aluminum Hydrox [Acid Gone Tablet Yoselin 2 tab PO Q6HR PRN PRN Reason: upset stomach Oxycodone/Acetaminophen (Percocet 10/325) 1 tab PO Q4HR PRN PRN Reason: Pain Last Admin: 02/07/17 10:31 Dose: 1 tab Pantoprazole Sodium (Protonix) 20 mg PO ACB [facility] Last Admin: 02/07/17 06:19 Dose: 20 mg Polyethylene Glycol (Miralax) 17 gm PO DAILY [facility] Last Admin: 02/07/17 08:03 Dose: 17 gm Promethazine HCl (Phenergan Tab) 25 mg PO Q6HR PRN PRN Reason: Nausea &/or vomiting Last Admin: 01/30/17 17:33 Dose: 25 mg Senna (Senna Lax) 17.2 mg PO HS [facility] Last Admin: 02/06/17 20:16 Dose: 17.2 mg Sodium Chloride (Iv Flush) 10 ml IV PRN PRN PRN Reason: Flushing Last Admin: 02/03/17 08:11 Dose: 10 ml Current Medical Issues: Diabetes mellitus, hypertension, pain management, leukocytosis, drainage from the wound Comments: I certify that I personally led the interdisciplinary team meeting and agree with comments, barriers and goals indicated. Team meeting was held in the patient's room with the patient and the following family members present: patient's and daughter Hui is cooperative with nursing. She continues to have quite a bit of drainage which is a serosanguineous nature from her back wound. Wounds do not appear to be infected. She will require regular dressing changes. Her blood sugars have been more well controlled. Her white count is improved from 17,000 down to 14,000. She would like her pain medications given when she is hurting, even though it is too soon for them. Blood pressures are stable. - Physical Therapy Bed, Chair, Wheelchair Transfer Assist: Stand By Assist/Supervision, 1 Person Assist Ambulation Ability: Stand By Assist/Supervision, 1 Person Assist Ambulation Distance: 257 Stair Climbing Ability: Stand By Assist/Supervision, 1 Person Assist Number of Steps Climbed: 12 Car Transfer Ability: Stand By Assist/Supervision, 1 Person Assist Comments: Pain control has improved and has allowed her to progress with functional activities. She does demonstrate variable and sometimes poor tolerance for bed mobility. Her reported weakness and pain are at times inconsistent with observations. - Occupational Therapy Eating Ability: Modified Independent Grooming Ability: Independent Bathing Ability: Moderate Assistance Upper Body Dressing Ability: Minimal Assistance Lower Body Dressing Ability: Stand By Assist/Supervision Tub Transfer Assist: Patient Refuses Toileting Assist: Moderate Assistance Toilet Transfer Assist: Stand By Assist/Supervision Comments: Family training is in progress regarding the brace. Trialed use of toileting tongs. Appropriate use of assistive devices have been worked on. She is still making progress toward goals. - Goals Physical Therapy Goals: 01/31/17 Goals: 1.) Mod I with amb going 250 feet. 2. ) SBA with bed mobility Occupational Therapy Goals: OT goals 01-31-17: 1.) LB dressing 07/18. 2.) Toileting 07/18. 3.) Family training on donning/doffing TLSO brace. OT goals : Continue goals 1-3 to SBA or 07/18 assist. Continue daughter training. - Barriers to Discharge Barriers to Attaining Goals: Comprehension, Pain Control - Care Plan Anticipated Length of Stay (days): 6 Anticipated DC Destination: Home, Self Care, Home Health Service I have led this team conference and agree with the plan. Interventions/Goals: Patient continues to make progress and is cooperative. Pain management is difficult. Recommend dismissal in 6 days on Saturday, February 13 depending on her progress.
[2017-02-07] MEDS: BENZOCAINE 20% HEMORRHOIDAL OINT 28 GM TOP PRN (22:03)
[2017-02-07] MEDS: ATORVASTATIN 10 MG TABLET PO SCH (22:04)
[2017-02-07] MEDS: VALERIAN ROOT PO SCH (22:04)
[2017-02-07] MEDS: MELATONIN 5 MG TABLET PO SCH (22:04)
[2017-02-07] MEDS: SENNOSIDES 8.6 MG TABLET PO SCH (22:05)
[2017-02-08] MEDS: AMLODIPINE/BENAZEPRIL 5mg/10mg CAPSULE PO SCH ×2 (04:41→08:32)
[2017-02-08] MEDS: Oxycodone/Apap 10/325 1 TAB PO PRN ×5 (04:42→20:24)
[2017-02-08] MEDS: LEVOTHYROXINE 125 MCG TABLET PO SCH ×2 (04:42→08:33)
[2017-02-08] MEDS: PANTOPRAZOLE 20 MG TABLET PO SCH ×2 (04:44→08:33)
[2017-02-08] MEDS: ASCORBIC ACID PO SCH (08:34)
[2017-02-08] MEDS: CRANBERRY PO SCH (08:34)
[2017-02-08] MEDS: METFORMIN 1,000 MG TABLET PO SCH ×2 (08:42→17:32)
[2017-02-08] MEDS: DOCUSATE SODIUM 100 MG CAPSULE PO SCH (08:42)
[2017-02-08] MEDS: CALCIUM CARBONATE 500 MG TABLET PO SCH (08:42)
[2017-02-08] MEDS: FEXOFENADINE 180 MG TABLET PO SCH (08:42)
[2017-02-08] MEDS: LACTOBACILLUS (15B cfu) CAPSULE PO SCH ×2 (08:42→17:31)
[2017-02-08] MEDS: GlipiZIDE 5 MG TABLET PO SCH ×2 (08:43→17:31)
[2017-02-08] MEDS: FUROSEMIDE 20 MG TABLET PO SCH (08:43)
[2017-02-08] MEDS: MULTI-VITAMIN PLAIN TABLET PO SCH (08:43)
[2017-02-08] MEDS: POLYETHYL GLYCOL 3350 17gm PACKET PO SCH (08:43)
[2017-02-08] MEDS: ASPIRIN 81 MG CHEWABLE TABLET PO SCH (08:43)
--- NOTE | 2017-02-08 09:20 | Progress Note ---
- Date 02/08/17 Subjective: Hui is seen this morning in the dining room finishing up breakfast. She overall is feeling good and states she is getting better each day. Back pain is mild-moderate however she is due for a pain medications. Appetite is good, Bowels are moving without difficulty. Objective Vital signs: Temperature 97.5 F 02/08/17 08:00 Pulse Rate 92 02/08/17 08:00 Respiratory Rate 14 02/08/17 08:00 Blood Pressure 131/65 02/08/17 08:00 Pulse Oximetry 96 02/07/17 22:25 Height/Weight/BMI: Height 1.59 m Weight 81.4 kg Body Mass Index 33.1 - Constitutional Present: no acute distress, well nourished, well developed - Routine HEENT Exam Eye: Present: EOMI ENT: Present: mucous membranes moist, dentition normal - Routine Respiratory Exam Present: CTA bilaterally - Routine Cardiovascular Exam Present: RRR, S1, S2 - Routine Abdominal Exam Present: soft, normoactive bowel sounds, non distended. Absent: tenderness - Routine Extremities Exam Present: normal capillary refill - Routine Skin Exam Present: intact, dry, warm - Routine Neurological Exam Present: alert, oriented X3, CN II-XII intact, moving all extremities - Routine Lymphatic Exam Lymphatic: Absent: adenopathy - Routine Psychiatric Exam Present: normal affect, cooperative Results - Labs CBC & Chem 7: 02/07/17 04:22 02/07/17 04:22 Microbiology Results: Microbiology 02/02/17 09:51 Peripheral/Iv Start Blood Culture - Final No Growth After 5 Days 02/02/17 09:57 Peripheral/Iv Start Blood Culture - Final No Growth After 5 Days 02/02/17 11:22 Back Gram Stain - Final 02/02/17 11:22 Back Superficial Wound Culture - Final No Growth After 3 Days Assessment and Plan (1) S/P lumbar laminectomy Current visit: Yes Status: Acute Assessment and Plan: Assessment Hyponatremia - POA - resolved Hyperkalemia - not POA Thrombocytosis - not POA Leukocytosis- onset 02/02 S/p lumbar laminectomy by Dr. Abdalla, 01/25/17. Diabetes Mellitus - Type 2, stable. HTN GERD Hypothyroidism Plan Overall doing well. Pain is well controlled on meds Will recheck labs today to follow leukocytosis and Thrombocytosis. No growth from blood cultures or wound culture. Appreciate Dr Bowman ID consultation. Recommends continuing PO keflex until follow up with Dr De Paz. Continue to encourage work with PT/OT for strengthening Medically stable - Physician Narrative Narrative: Date: 02/08/17 Time: 0911 Hospital Course Summary Disclaimer: The visit summary below is not to be considered part of the above Progress Note. Hospital Course: Plan - 02/01/17 ([place]) Continue pain management and therapies per Dr. Monroe. Hyponatremia noted on admission. Na 126 today with calculated serum osmolality low at 243; Urine osmolality and urine random sodium 213 and 42 respectively on admission. Discussed with Dr. Slater. Will give additional Lasix 60mg po now with KCl 40 mEq po now due to increased fluids status as noted by increased daily weight and 2+ edema bilaterally. Will increase daily lasix to 40mg BID and add KCl 20 mEq daily. Recheck BMP in AM to monitor electrolytes and renal function. Continue to monitor oral intake and daily weight closely. Patient noted to be drinking water frequently on exam. If additional lasix does not improve hyponatremia, consider fluid restriction. Blood sugars have been variable with low at 41 and high at 206 since admission. More stable today with increased oral intake. Continue to monitor closely for hypoglycemia. Prior records indicate home dose of Glipizide at 10mg in AM and 5mg at 1700. Due to hypoglycemia, Glipizide was decreased from 10mg to 5mg in AM on 01/31 with evening Glipizide stable at 5mg. Will continue glipizide 5mg BID and metformin 1000mg BID. Blood pressure remains slightly elevated, but acceptable given her pain. We'll continue to monitor closely. Continue home amlodipine/benazepril 5/10 and Lasix 20mg daily. Will consult wound care to monitor surgical incisions and for dressing change recommendations. Back dressing changed 02/01/17 due to discharge on dressing. Continue Keflex 500mg QID per for treatment of common pathogens to surgical sites. Treatment course through 02/09/17. Continue to provide safe and supportive environment. Plan - 02/02 Following initial examination. Did speak with on-call spine surgeon, Dr. Rowdy Ndiaye (oncall for Dr Arambula) He recommended repeating CBC, obtaining CRP and sedimentation rate. He also recommended. Patient placed supine, Clean incision with alcohol and obtaining a wound culture from lumbar incision. Thick dressing with compression as per recommendation Will continue with Keflex 500 milligrams 4 times a day(through 02/09), he recommended adding Bactrim DS twice a day. Did speak with Abdirahman to confirm no previous wound culture was obtained during her stay. Place activity on hold today. Encourage patient to lie supine if possible. Obtain stool for occult blood. Given recent reported black stool. Hemoglobin remained stable. Protonix daily for GI protection. Lasix was decreased to baseline dose of 20 QD. Magnesium is normal at 1.6. Sodium did improve to 132. Continue to monitor Discussed case with attending, Nursing, Dr Monroe and Dr Ndiaye. 45 minutes spend with patient and coordination of care Will call Dr Ndiaye again this afternoon for update Plan - 02/03 Overall feeling good this morning. Leukocytosis improved down to 15 today. Continue on IV Vancomycin for antimicrobial coverage. Continue with PO Keflex also. Continue to monitor lumbar incision drainage. Wound and blood cultures pending. Lasix dosing remains at baseline 20 mg daily. Continue to encourage work with PT,OT for strengthening Will recheck CBC, BMP and magnesium tomorrow morning Stool for occult blood pending sample. Case discussed with attending 02/04/17 WBC 17.0-->15.2-->16.1, but no bands today and neutrophils are decreasing. Continue on IV Vancomycin and PO Keflex for antimicrobial coverage. Continue to monitor lumbar incision drainage. Wound and blood cultures pending. Lasix dosing remains at baseline 20 mg daily. She had been refusing Lasix which is likely why her potassium is high. Her potassium is on hold and she will take her Lasix. Continue to encourage work with PT,OT for strengthening Check iron studies given her steady increase in platelet count. Repeat CBC and BMP in am to follow WBC, platelets, and electrolytes. Pain control per Dr. Monroe. 02/05/17 WBC has not improved on vanc. Dr. Bowman (ID) assessed patient and recommends DC vanc given her WBC has not improved, her incision does not look infected and clinically she is improving. She recommended to continue the Keflex until patient follows up with Dr. Abdalla. It is unclear why she continues to have leukocytosis and elevated acute phase reactants, but her CRP is improving. Her wound and blood cultures have been neg. Potassium is elevated 4.7-->5.2-->5.6 today . Specimen was hemolyzed. Will repeat potassium level 02/08/17 Plan Overall doing well. Pain is well controlled on meds Will recheck labs today to follow leukocytosis and Thrombocytosis. No growth from blood cultures or wound culture. Appreciate Dr Bowman ID consultation. Recommends continuing PO keflex until follow up with Dr De Paz. Continue to encourage work with PT/OT for strengthening Medically stable
--- NOTE | 2017-02-08 11:29 | IRU Progress Note ---
- Subjective/Serverity of Illness Date: 02/08/17 Hui was evaluated in her room with her family present. She says that her night was much better. She was able to get up (with nurse or nurse gift shop assistant present), don her brace, use the restroom and perform personal hygiene. She was pleased with this progress. Pain continues to be an issue and she wants to make sure that she gets her pain medications on a regular basis. We did increase the frequency to every 3 hours yesterday. She remains afebrile without evidence of active infection. She remains on cephalexin. Denies diarrhea. Appetite is good. Brief therapy update: She is becoming more independent. She is cooperative and willing to learn. In particular she is improving with transfers and is now able to ambulate over 250 feet with standby assistance. In addition she is improving with occupational therapy and performing personal hygiene activities. Medically, we are monitoring her blood sugars which remain much improved control. Her blood pressures are also improved. Exam Vital Signs: Temperature 97.5 F 02/08/17 08:00 Pulse Rate 92 02/08/17 08:00 Respiratory Rate 14 02/08/17 08:00 Blood Pressure 131/65 02/08/17 08:00 Pulse Oximetry 96 02/07/17 22:25 Height/Weight/BMI: Height 1.59 m Weight 81.4 kg Body Mass Index 33.1 - Constitutional Present: no acute distress, well nourished, well developed, obese - Routine HEENT Exam ENT: Present: mucous membranes moist, dentition normal - Routine Neck Exam Present: supple - Routine Respiratory Exam Present: CTA bilaterally. Absent: wheezes - Routine Cardiovascular Exam Present: RRR, S1, S2. Absent: murmur - Routine Abdominal Exam Present: soft, normoactive bowel sounds, non distended. Absent: tenderness - Routine Extremities Exam Present: normal capillary refill - Routine Skin Exam Present: dry, warm - Routine Neurological Exam Present: alert, oriented X3, CN II-XII intact - Routine Psychiatric Exam Present: normal affect Results IRU - Labs Labs: I reviewed other providers notes. Additional blood work will be obtained to monitor her platelets and white count etc. Also reviewed blood sugars which are improved. IRU A/P (1) S/P lumbar laminectomy Current visit: Yes Status: Acute Pain management continues to be a concern on the part of the patient. However she seems to be adequately controlled at the present time. She is certainly improving with both PT and OT. (2) Delirium Current visit: Yes Status: Resolved (3) Hyponatremia Current visit: Yes Status: Resolved (4) Diabetes mellitus type 2 in obese Current visit: Yes Status: Chronic Blood sugars are reasonably well controlled at the present time. (5) Leukocytosis Qualifiers: Leukocytosis type: unspecified Qualified Code(s): D72.829 - Elevated white blood cell count, unspecified Current visit: Yes Status: Acute Repeat blood work will be obtained to monitor her platelets as well as white count. No current evidence of active infection although remains on cephalexin. DVT Prophylaxis: SCD's Resuscitation Status: Full Code - Course Hospital Course: Chente Monroe MD: 01/30/17 11:15 Getting started with therapy. Confusion is an issue and carryover of education is questionable. White count is now normal. Sodium 125. 01/31/17 10:23 Cognition improved. Sodium improved to 127. Progressing with therapy. Pain as anticipated. 02/04/17 09:56 She is now on vancomycin plus oral cephalexin. White count remains elevated at 16,000. Hospitalists are following. 02/05/17 13:[address] Bowman. Vancomycin discontinued. White count still elevated at 17,000 of uncertain etiology. Making progress with therapy 02/07/17 10:57 Wounds appear to be benign although there is some drainage. White count improved at 14,000. Afebrile. Cooperative with therapy although not terribly aggressive with personal care. 02/08/17 11:30 She is improving with therapy. Specifically she is improving with personal hygiene care for occupational therapy. Was able to sleep better last night and was able to be more independent with donning and doffing her brace. Blood sugars are well controlled. - Interventions to Obtain Goals PT Treatment Plan: Balance/Proprioception, Functional Activities, Gait Training , Patient/Family Education, Therapeutic Exercise OT Treatment Plan: ADL (Basic Care), Balance Training, IADL, Pt./Family Education Goals Progress/Modifications: Time spent with patient and on floor reviewing data and documentin min Barriers to dismissal: Pain, endurance Medical decision-making: Today I again reviewed her overall status. Overall medically she is stable. Her blood sugars and blood pressures are doing well. While she continues to have drainage from her back, there is no evidence of active wound infection. It is my opinion it is safe to continue therapy. I have reviewed therapy notes and she is improving particularly with regard to occupational therapy and personal hygiene. In addition she is ambulating farther at over 250 feet with standby assistance. Multiple questions were addressed.
[2017-02-08] MEDS: FERROUS SULFATE 324 MG TABLET PO SCH (12:17)
[2017-02-08] MEDS ORDERED: FALL RISK - PHARMACY CONSULT XX ONE (12:29)
[2017-02-08] MEDS: CYCLOBENZAPRINE 10 MG TABLET PO PRN ×2 (15:40→23:19)
[2017-02-08] MEDS: MELATONIN 5 MG TABLET PO SCH (20:23)
[2017-02-08] MEDS: SENNOSIDES 8.6 MG TABLET PO SCH (20:23)
[2017-02-08] MEDS: VALERIAN ROOT PO SCH (20:24)
[2017-02-08] MEDS: ATORVASTATIN 10 MG TABLET PO SCH (20:24)
[2017-02-09] MEDS: Oxycodone/Apap 10/325 1 TAB PO PRN ×6 (00:24→23:45)
[2017-02-09] MEDS: CYCLOBENZAPRINE 10 MG TABLET PO PRN ×3 (05:15→22:20)
[2017-02-09] MEDS: AMLODIPINE/BENAZEPRIL 5mg/10mg CAPSULE PO SCH ×2 (05:18→06:18)
[2017-02-09] MEDS: LEVOTHYROXINE 125 MCG TABLET PO SCH ×2 (05:18→06:03)
[2017-02-09] MEDS: PANTOPRAZOLE 20 MG TABLET PO SCH ×2 (05:19→06:03)
[2017-02-09] MEDS: POLYETHYL GLYCOL 3350 17gm PACKET PO SCH (08:23)
[2017-02-09] MEDS: LACTOBACILLUS (15B cfu) CAPSULE PO SCH ×2 (08:24→18:14)
[2017-02-09] MEDS: DOCUSATE SODIUM 100 MG CAPSULE PO SCH (08:25)
[2017-02-09] MEDS: CALCIUM CARBONATE 500 MG TABLET PO SCH (08:25)
[2017-02-09] MEDS: METFORMIN 1,000 MG TABLET PO SCH ×2 (08:25→18:14)
[2017-02-09] MEDS: FEXOFENADINE 180 MG TABLET PO SCH (08:25)
[2017-02-09] MEDS: MULTI-VITAMIN PLAIN TABLET PO SCH (08:25)
[2017-02-09] MEDS: ASPIRIN 81 MG CHEWABLE TABLET PO SCH (08:26)
[2017-02-09] MEDS: GlipiZIDE 5 MG TABLET PO SCH ×2 (08:26→18:14)
[2017-02-09] MEDS: FUROSEMIDE 20 MG TABLET PO SCH (08:26)
[2017-02-09] MEDS: ASCORBIC ACID PO SCH (08:31)
[2017-02-09] MEDS: CRANBERRY PO SCH (08:31)
[2017-02-09] MEDS: FERROUS SULFATE 324 MG TABLET PO SCH (13:04)
[2017-02-09] MEDS: MELATONIN 5 MG TABLET PO SCH (21:22)
[2017-02-09] MEDS: ATORVASTATIN 10 MG TABLET PO SCH (21:23)
[2017-02-09] MEDS: SENNOSIDES 8.6 MG TABLET PO SCH (21:23)
[2017-02-09] MEDS: VALERIAN ROOT PO SCH (21:23)
[2017-02-10] MEDS: Oxycodone/Apap 10/325 1 TAB PO PRN ×5 (03:52→21:02)
[2017-02-10] MEDS: CYCLOBENZAPRINE 10 MG TABLET PO PRN ×3 (06:18→21:58)
[2017-02-10] MEDS: PANTOPRAZOLE 20 MG TABLET PO SCH (06:18)
[2017-02-10] MEDS: AMLODIPINE/BENAZEPRIL 5mg/10mg CAPSULE PO SCH (06:18)
[2017-02-10] MEDS: LEVOTHYROXINE 125 MCG TABLET PO SCH (06:19)
[2017-02-10] MEDS: MULTI-VITAMIN PLAIN TABLET PO SCH (09:03)
[2017-02-10] MEDS: FUROSEMIDE 20 MG TABLET PO SCH (09:03)
[2017-02-10] MEDS: DOCUSATE SODIUM 100 MG CAPSULE PO SCH (09:03)
[2017-02-10] MEDS: FEXOFENADINE 180 MG TABLET PO SCH (09:03)
[2017-02-10] MEDS: POLYETHYL GLYCOL 3350 17gm PACKET PO SCH (09:03)
[2017-02-10] MEDS: LACTOBACILLUS (15B cfu) CAPSULE PO SCH ×2 (09:04→17:13)
[2017-02-10] MEDS: ASCORBIC ACID PO SCH (09:04)
[2017-02-10] MEDS: METFORMIN 1,000 MG TABLET PO SCH ×2 (09:04→17:14)
[2017-02-10] MEDS: CRANBERRY PO SCH (09:04)
[2017-02-10] MEDS: CALCIUM CARBONATE 500 MG TABLET PO SCH (09:04)
[2017-02-10] MEDS: ASPIRIN 81 MG CHEWABLE TABLET PO SCH (09:14)
[2017-02-10] MEDS: GlipiZIDE 5 MG TABLET PO SCH ×2 (09:14→17:14)
[2017-02-10] MEDS: BENZOCAINE 20% HEMORRHOIDAL OINT 28 GM TOP PRN (10:24)
[2017-02-10] MEDS: FERROUS SULFATE 324 MG TABLET PO SCH (12:42)
[2017-02-10] MEDS: SENNOSIDES 8.6 MG TABLET PO SCH (21:00)
[2017-02-10] MEDS: ATORVASTATIN 10 MG TABLET PO SCH (21:01)
[2017-02-10] MEDS: MELATONIN 5 MG TABLET PO SCH (21:01)
[2017-02-10] MEDS: VALERIAN ROOT PO SCH (21:02)
[2017-02-11] MEDS: Oxycodone/Apap 10/325 1 TAB PO PRN ×6 (01:00→23:12)
[2017-02-11] MEDS: AMLODIPINE/BENAZEPRIL 5mg/10mg CAPSULE PO SCH (06:10)
[2017-02-11] MEDS: PANTOPRAZOLE 20 MG TABLET PO SCH (06:10)
[2017-02-11] MEDS: CYCLOBENZAPRINE 10 MG TABLET PO PRN ×3 (06:10→23:12)
[2017-02-11] MEDS: LEVOTHYROXINE 125 MCG TABLET PO SCH (06:10)
[2017-02-11] MEDS: METFORMIN 1,000 MG TABLET PO SCH ×2 (08:49→17:27)
[2017-02-11] MEDS: GlipiZIDE 5 MG TABLET PO SCH ×2 (08:49→17:27)
[2017-02-11] MEDS: MULTI-VITAMIN PLAIN TABLET PO SCH (08:49)
[2017-02-11] MEDS: LACTOBACILLUS (15B cfu) CAPSULE PO SCH ×2 (08:49→17:27)
[2017-02-11] MEDS: FEXOFENADINE 180 MG TABLET PO SCH (08:50)
[2017-02-11] MEDS: DOCUSATE SODIUM 100 MG CAPSULE PO SCH (08:50)
[2017-02-11] MEDS: FUROSEMIDE 20 MG TABLET PO SCH (08:50)
[2017-02-11] MEDS: CALCIUM CARBONATE 500 MG TABLET PO SCH (08:50)
[2017-02-11] MEDS: POLYETHYL GLYCOL 3350 17gm PACKET PO SCH (08:53)
[2017-02-11] MEDS: ASCORBIC ACID PO SCH (08:53)
[2017-02-11] MEDS: CRANBERRY PO SCH (08:53)
[2017-02-11] MEDS: ASPIRIN 81 MG CHEWABLE TABLET PO SCH (08:54)
--- NOTE | 2017-02-11 11:52 | IRU Progress Note ---
- Subjective/Serverity of Illness Date: 02/11/17 Ms. Castle was evaluated on the inpatient rehabilitation unit. She is progressing with therapy. Has several questions about going home and would like to arrange for home health. We discussed this with the patient and her daughter today. I think she would qualify for home health physical therapy and occupational therapy as well as wound assessment and management per nurse. From a medical standpoint her blood sugars are well controlled. She has had no evidence of cognitive decline. She is using between 5-6 Percocet daily. Pain appears to be adequately controlled. Her blood pressures are well controlled. She is progressing with therapy and can manage her brace at the present time. Exam Vital Signs: Temperature 97.5 F 02/11/17 08:00 Pulse Rate 95 02/11/17 08:00 Respiratory Rate 16 02/11/17 08:00 Blood Pressure 144/67 H 02/11/17 08:00 Pulse Oximetry 96 02/11/17 08:00 Height/Weight/BMI: Height 1.59 m Weight 81.1 kg Body Mass Index 33.1 Comments: The patient is awake, alert and oriented and in no acute distress. Pupils are equal. The neck is supple. Chest: Clear to auscultation bilaterally. Cor: RR with no gallop, click . Murmur noted. Abd: soft with normo-active bowel sounds. There are no masses, no tenderness and no guarding. Extremities: No edema is noted. IRU A/P (1) S/P lumbar laminectomy Current visit: Yes Status: Acute Pain appears to be adequately controlled with between 5-6 Percocet daily. She is not oversedated and her cognition appears to be normal. (2) Delirium Current visit: Yes Status: Resolved (3) Hyponatremia Current visit: Yes Status: Resolved (4) Diabetes mellitus type 2 in obese Current visit: Yes Status: Chronic Blood sugars are well controlled at present. (5) Leukocytosis Qualifiers: Leukocytosis type: unspecified Qualified Code(s): D72.829 - Elevated white blood cell count, unspecified Current visit: Yes Status: Resolved White count has now normalized. However platelets are over 1 million. She is on aspirin 81 mg daily. Defer to hospitalist service. (6) Thrombocytosis Current visit: Yes Status: Acute Etiology not clear. Typically this is due to an inflammatory process. However we know of no particular inflammatory process at present. Other option would be an underlying bone marrow disorder. DVT Prophylaxis: SCD's Resuscitation Status: Full Code - Course Hospital Course: Chente Monroe MD: 01/30/17 11:15 Getting started with therapy. Confusion is an issue and carryover of education is questionable. White count is now normal. Sodium 125. 01/31/17 10:23 Cognition improved. Sodium improved to 127. Progressing with therapy. Pain as anticipated. 02/04/17 09:56 She is now on vancomycin plus oral cephalexin. White count remains elevated at 16,000. Hospitalists are following. 02/05/17 13:[address] Bowman. Vancomycin discontinued. White count still elevated at 17,000 of uncertain etiology. Making progress with therapy 02/07/17 10:57 Wounds appear to be benign although there is some drainage. White count improved at 14,000. Afebrile. Cooperative with therapy although not terribly aggressive with personal care. 02/08/17 11:30 She is improving with therapy. Specifically she is improving with personal hygiene care for occupational therapy. Was able to sleep better last night and was able to be more independent with donning and doffing her brace. Blood sugars are well controlled. 02/11/17 11:52 Continues to improve with therapy. Pain adequately controlled with between 5-6 Percocet daily. Thrombocytosis noted. - Interventions to Obtain Goals PT Treatment Plan: Balance/Proprioception, Functional Activities, Gait Training , Patient/Family Education, Therapeutic Exercise OT Treatment Plan: ADL (Basic Care), Balance Training, IADL, Pt./Family Education
[2017-02-11] MEDS: FERROUS SULFATE 324 MG TABLET PO SCH (12:10)
--- NOTE | 2017-02-11 15:19 | Progress Note ---
- Date 02/11/17 Subjective: Hui is working with occupational therapy. Her back pain is under decent control, but she is having her typical fibromyalgia and arthritis pain. She also had an episode of IBS this morning, but her cramping has resolved and she is feeling better now (she took hyoscyamin). The amount of drainage to her back is about the same. She denies fevers or chills or sweating. She denies any shortness of breath. She feels like the swelling in her legs is improving. Objective Vital signs: Temperature 97.5 F 02/11/17 08:00 Pulse Rate 95 02/11/17 08:00 Respiratory Rate 16 02/11/17 08:00 Blood Pressure 144/67 H 02/11/17 08:00 Pulse Oximetry 96 02/11/17 08:00 Height/Weight/BMI: Height 1.59 m Weight 81.7 kg Body Mass Index 33.1 - Constitutional Present: no acute distress, well nourished, well developed - Routine HEENT Exam Head: Present: normocephalic Eye: Present: PERRL. Absent: conjunctival icterus ENT: Present: mucous membranes moist, oropharynx clear - Routine Respiratory Exam Present: CTA bilaterally - Routine Cardiovascular Exam Present: RRR, S1, S2, murmur - Routine Abdominal Exam Present: soft, normoactive bowel sounds, non distended, non tender - Routine Extremities Exam Present: edema (trace b/l lower ext.) - Routine Skin Exam Present: warm, wounds (gauze dressing applied to lower back, with mild amount of drainage to the distal end) - Routine Neurological Exam Present: alert, oriented X3, normal speech - Routine Psychiatric Exam Present: normal affect, normal thought process, cooperative Results - Labs CBC & Chem 7: 02/11/17 09:26 02/11/17 09:26 Microbiology Results: Microbiology 02/02/17 09:51 Peripheral/Iv Start Blood Culture - Final No Growth After 5 Days 02/02/17 09:57 Peripheral/Iv Start Blood Culture - Final No Growth After 5 Days 02/02/17 11:22 Back Gram Stain - Final 02/02/17 11:22 Back Superficial Wound Culture - Final No Growth After 3 Days Assessment and Plan (1) S/P lumbar laminectomy Current visit: Yes Status: Acute Assessment and Plan: Assessment Hyponatremia - POA - resolved Hyperkalemia - not POA - resolved Thrombocytosis - not POA Leukocytosis- onset 02/02 - resolved S/P lumbar laminectomy by Dr. Abdalla, 01/25/17. Diabetes Mellitus - Type 2, stable. IBS Fibromyalgia OA HTN GERD Hypothyroidism Plan Platelet count escalating, now up to 1197. Will consult Dr. Blanco or Dr. Fernandez on 02/13/16. WBC normal at 9.7. Drainage to back wound is stable per report. Continue Keflex until she follows up with Dr. Abdalla. Continue meds for IBS symptoms. Blood sugars are under reasonable control. GI Prophylaxis: Protonix Resuscitation Status: Full Code - Physician Narrative Narrative: Date: 02/11/17 Time: 1514 Hospital Course Summary Disclaimer: The visit summary below is not to be considered part of the above Progress Note. Hospital Course: Plan - 02/01/17 ([place]) Continue pain management and therapies per Dr. Monroe. Hyponatremia noted on admission. Na 126 today with calculated serum osmolality low at 243; Urine osmolality and urine random sodium 213 and 42 respectively on admission. Discussed with Dr. Slater. Will give additional Lasix 60mg po now with KCl 40 mEq po now due to increased fluids status as noted by increased daily weight and 2+ edema bilaterally. Will increase daily lasix to 40mg BID and add KCl 20 mEq daily. Recheck BMP in AM to monitor electrolytes and renal function. Continue to monitor oral intake and daily weight closely. Patient noted to be drinking water frequently on exam. If additional lasix does not improve hyponatremia, consider fluid restriction. Blood sugars have been variable with low at 41 and high at 206 since admission. More stable today with increased oral intake. Continue to monitor closely for hypoglycemia. Prior records indicate home dose of Glipizide at 10mg in AM and 5mg at 1700. Due to hypoglycemia, Glipizide was decreased from 10mg to 5mg in AM on 01/31 with evening Glipizide stable at 5mg. Will continue glipizide 5mg BID and metformin 1000mg BID. Blood pressure remains slightly elevated, but acceptable given her pain. We'll continue to monitor closely. Continue home amlodipine/benazepril 5/10 and Lasix 20mg daily. Will consult wound care to monitor surgical incisions and for dressing change recommendations. Back dressing changed 02/01/17 due to discharge on dressing. Continue Keflex 500mg QID per for treatment of common pathogens to surgical sites. Treatment course through 02/09/17. Continue to provide safe and supportive environment. Plan - 02/02 Following initial examination. Did speak with on-call spine surgeon, Dr. Rowdy Ndiaye (oncall for Dr Arambula) He recommended repeating CBC, obtaining CRP and sedimentation rate. He also recommended. Patient placed supine, Clean incision with alcohol and obtaining a wound culture from lumbar incision. Thick dressing with compression as per recommendation Will continue with Keflex 500 milligrams 4 times a day(through 02/09), he recommended adding Bactrim DS twice a day. Did speak with Abdirahman to confirm no previous wound culture was obtained during her stay. Place activity on hold today. Encourage patient to lie supine if possible. Obtain stool for occult blood. Given recent reported black stool. Hemoglobin remained stable. Protonix daily for GI protection. Lasix was decreased to baseline dose of 20 QD. Magnesium is normal at 1.6. Sodium did improve to 132. Continue to monitor Discussed case with attending, Nursing, Dr Monroe and Dr Ndiaye. 45 minutes spend with patient and coordination of care Will call Dr Ndiaye again this afternoon for update Plan - 02/03 Overall feeling good this morning. Leukocytosis improved down to 15 today. Continue on IV Vancomycin for antimicrobial coverage. Continue with PO Keflex also. Continue to monitor lumbar incision drainage. Wound and blood cultures pending. Lasix dosing remains at baseline 20 mg daily. Continue to encourage work with PT,OT for strengthening Will recheck CBC, BMP and magnesium tomorrow morning Stool for occult blood pending sample. Case discussed with attending 02/04/17 WBC 17.0-->15.2-->16.1, but no bands today and neutrophils are decreasing. Continue on IV Vancomycin and PO Keflex for antimicrobial coverage. Continue to monitor lumbar incision drainage. Wound and blood cultures pending. Lasix dosing remains at baseline 20 mg daily. She had been refusing Lasix which is likely why her potassium is high. Her potassium is on hold and she will take her Lasix. Continue to encourage work with PT,OT for strengthening Check iron studies given her steady increase in platelet count. Repeat CBC and BMP in am to follow WBC, platelets, and electrolytes. Pain control per Dr. Monroe. 02/05/17 WBC has not improved on vanc. Dr. Bowman (ID) assessed patient and recommends DC vanc given her WBC has not improved, her incision does not look infected and clinically she is improving. She recommended to continue the Keflex until patient follows up with Dr. Abdalla. It is unclear why she continues to have leukocytosis and elevated acute phase reactants, but her CRP is improving. Her wound and blood cultures have been neg. Potassium is elevated 4.7-->5.2-->5.6 today . Specimen was hemolyzed. Will repeat potassium level 02/08/17 Plan Overall doing well. Pain is well controlled on meds Will recheck labs today to follow leukocytosis and Thrombocytosis. No growth from blood cultures or wound culture. Appreciate Dr Bowman ID consultation. Recommends continuing PO keflex until follow up with Dr De Paz. Continue to encourage work with PT/OT for strengthening Medically stable 02/11/17 Platelet count escalating, now up to 1197. Will consult Dr. Blanco or Dr. Fernandez on 02/13/16. WBC normal at 9.7.
[2017-02-11] MEDS: SENNOSIDES 8.6 MG TABLET PO SCH (20:18)
[2017-02-11] MEDS: MELATONIN 5 MG TABLET PO SCH (20:18)
[2017-02-11] MEDS: ATORVASTATIN 10 MG TABLET PO SCH (20:18)
[2017-02-11] MEDS: VALERIAN ROOT PO SCH (20:18)
[2017-02-12] MEDS: Oxycodone/Apap 10/325 1 TAB PO PRN ×6 (03:00→23:17)
[2017-02-12] MEDS: BENZOCAINE 20% HEMORRHOIDAL OINT 28 GM TOP PRN ×2 (06:51→15:13)
[2017-02-12] MEDS: AMLODIPINE/BENAZEPRIL 5mg/10mg CAPSULE PO SCH (06:51)
[2017-02-12] MEDS: LEVOTHYROXINE 125 MCG TABLET PO SCH (06:51)
[2017-02-12] MEDS: CYCLOBENZAPRINE 10 MG TABLET PO PRN ×4 (06:51→23:17)
[2017-02-12] MEDS: PANTOPRAZOLE 20 MG TABLET PO SCH (06:51)
[2017-02-12] MEDS: POLYETHYL GLYCOL 3350 17gm PACKET PO SCH (08:23)
[2017-02-12] MEDS: DOCUSATE SODIUM 100 MG CAPSULE PO SCH (08:24)
[2017-02-12] MEDS: FUROSEMIDE 20 MG TABLET PO SCH (08:25)
[2017-02-12] MEDS: FEXOFENADINE 180 MG TABLET PO SCH (08:25)
[2017-02-12] MEDS: METFORMIN 1,000 MG TABLET PO SCH ×2 (08:25→17:45)
[2017-02-12] MEDS: CALCIUM CARBONATE 500 MG TABLET PO SCH (08:26)
[2017-02-12] MEDS: LACTOBACILLUS (15B cfu) CAPSULE PO SCH ×2 (08:26→17:45)
[2017-02-12] MEDS: CRANBERRY PO SCH (08:27)
[2017-02-12] MEDS: MULTI-VITAMIN PLAIN TABLET PO SCH (08:27)
[2017-02-12] MEDS: ASCORBIC ACID PO SCH (08:27)
[2017-02-12] MEDS: ASPIRIN 81 MG CHEWABLE TABLET PO SCH (08:32)
[2017-02-12] MEDS: GlipiZIDE 5 MG TABLET PO SCH ×2 (08:33→17:44)
--- NOTE | 2017-02-12 11:03 | IRU Progress Note ---
- Subjective/Serverity of Illness Date: 02/12/17 Hui continues to improve and states that she is stronger daily. She is very cooperative with therapy. She reports that her pain is adequately controlled. With regard to the wound drainage, it appears to be more serous and less sanguinous. It has been reduced in quantity as well. Still requires dressing changes at least once daily. Wound itself is stable and does not appear to be infected according to the nurse. Her appetite is good. She denies any chest pain or shortness of breath. Brief therapy update: Continues to be very cooperative with therapy. She is modified independent for most activities with occupational therapy. She is now able to ambulate over 1000 feet with standby assistance. She is able to stand from a sitting position nicely. Update on medical issues we are actively monitoring and managin. Uncontrolled pain. She is using about 6 Percocet daily. She is taking them one at a time. This appears to be controlling her pain adequately. 2. Diabetes mellitus type 2: Blood sugars are reviewed and look excellent. 3. Hypertension: Blood pressures are reviewed. Occasional values over 140 but most appear to be adequately controlled. 4. Leukocytosis: Her white count is now normal. 5. Cognition: According to her family she has had no further episodes of confusion etc. This appears to have resolved. 6. Hyponatremia: Resolved. 7. Thrombocytosis: Platelet count was over 1.1 million yesterday. It is now down about 100,000. She has been seen by Dr. Cruz and he has increased her aspirin to 325 mg daily. In addition, JADE 2 has been ordered. Exam Vital Signs: Temperature 97.8 F 02/12/17 08:00 Pulse Rate 91 02/12/17 08:00 Respiratory Rate 18 02/12/17 08:00 Blood Pressure 134/69 02/12/17 08:00 Pulse Oximetry 96 02/12/17 08:00 Height/Weight/BMI: Height 1.59 m Weight 81.7 kg Body Mass Index 33.1 - Constitutional Present: no acute distress, well nourished, well developed, cooperative - Routine HEENT Exam Eye: Present: EOMI ENT: Present: mucous membranes moist, dentition normal - Routine Neck Exam Present: supple, full ROM - Routine Respiratory Exam Present: CTA bilaterally. Absent: dyspnea, decreased breath sounds, wheezes - Routine Cardiovascular Exam Present: RRR, S1, S2. Absent: murmur - Routine Abdominal Exam Present: soft, normoactive bowel sounds, non distended. Absent: tenderness - Routine Extremities Exam Present: normal capillary refill - Routine Skin Exam Present: dry, warm - Routine Neurological Exam Present: alert, oriented X3, CN II-XII intact, moving all extremities, normal speech. Absent: altered mental status, facial asymmetry - Routine Psychiatric Exam Present: normal affect, normal thought process, cooperative Results IRU - Labs Labs: Have discussed case with Dr. Cruz as well as the hospitalist staff. Also have reviewed labs. IRU A/P (1) S/P lumbar laminectomy Current visit: Yes Status: Acute Wound drainage has improved. Wound does not appear to be infected. Pain adequately controlled. (2) Delirium Current visit: Yes Status: Resolved (3) Hyponatremia Current visit: Yes Status: Resolved (4) Diabetes mellitus type 2 in obese Current visit: Yes Status: Chronic Blood sugars are well controlled at present. (5) Leukocytosis Qualifiers: Leukocytosis type: unspecified Qualified Code(s): D72.829 - Elevated white blood cell count, unspecified Current visit: Yes Status: Resolved (6) Thrombocytosis Current visit: Yes Status: Acute Reviewed platelet count. It has improved. Has seen hematology. Aspirin increased to a whole 325 mg tablet. DVT Prophylaxis: SCD's Resuscitation Status: Full Code - Course Hospital Course: Chente Monroe MD: 01/30/17 11:15 Getting started with therapy. Confusion is an issue and carryover of education is questionable. White count is now normal. Sodium 125. 01/31/17 10:23 Cognition improved. Sodium improved to 127. Progressing with therapy. Pain as anticipated. 02/04/17 09:56 She is now on vancomycin plus oral cephalexin. White count remains elevated at 16,000. Hospitalists are following. 02/05/17 13:[address] Bowman. Vancomycin discontinued. White count still elevated at 17,000 of uncertain etiology. Making progress with therapy 02/07/17 10:57 Wounds appear to be benign although there is some drainage. White count improved at 14,000. Afebrile. Cooperative with therapy although not terribly aggressive with personal care. 02/08/17 11:30 She is improving with therapy. Specifically she is improving with personal hygiene care for occupational therapy. Was able to sleep better last night and was able to be more independent with donning and doffing her brace. Blood sugars are well controlled. 02/11/17 11:52 Continues to improve with therapy. Pain adequately controlled with between 5-6 Percocet daily. Thrombocytosis noted. 02/12/17 11:04 Platelet count slightly improved. Patient doing well with therapy and anticipates going home tomorrow with home health. - Interventions to Obtain Goals PT Treatment Plan: Balance/Proprioception, Functional Activities, Gait Training , Patient/Family Education, Therapeutic Exercise OT Treatment Plan: ADL (Basic Care), Balance Training, IADL, Pt./Family Education
[2017-02-12] MEDS: ASPIRIN 325 MG TABLET PO SCH (11:07)
--- NOTE | 2017-02-12 11:20 | Ultrasound Report ---
Indication: Thrombocytosis/Essential Thrombothycemia PROCEDURE: US abdomen limited: Encounter: Initial Comparison: None Technique: Grayscale and color Doppler sonographic imaging of the left upper quadrant of the abdomen was performed. Findings/ Impression: The spleen is of normal size measuring 8 cm in length. No focal splenic lesions or masses. .
[2017-02-12] MEDS: FERROUS SULFATE 324 MG TABLET PO SCH (12:29)
--- NOTE | 2017-02-12 13:53 | Consultation ---
DATE OF CONSULTATION 02/12/2017 REASON FOR CONSULTATION Persistent thrombocytosis. HISTORY OF PRESENT ILLNESS This is a 76-year-old female patient with history of diabetes, hypothyroidism, hypertension, and chronic back pain who underwent back surgery; lumbar laminectomy with instrumentation and bone graft with fusion for spinal stenosis on January 25, [address] [facility]. She was transferred to the Rehab Unit at [facility] and noted to have leukocytosis and thrombocytosis. Also noted to have serous drainage from the spinal wound. ID was consulted. The patient was initially started on vancomycin for possible infection. Her ESR and CRP were elevated along with the leukocytosis. Blood cultures were negative. Vancomycin was discontinued and now she is on Keflex. Hematology consultation was requested for persistent thrombocytosis. The patient's baseline platelets on January 30 was normal at 365,000. The patient is not known to have a blood disorder. She has been on iron supplement. She is not known to have bleeding other than hemorrhoids. She is known to have elevated serum B12. Her platelet count from the baseline is 365 two weeks ago is steadily going up. Platelet count on February 02, 2017 was 590, 000, on February 03, 2017 was 681, on February 05 was 734,000, on February 06 was 878,000, on February 09 was 959,000, on February 11, 2017 was more than a million at 1,197,000. Today, is slightly down but still more than a million at 1,063,000. The patient denies headaches or any symptoms of stroke. She is having bleeding from hemorrhoids. She has no fever. Infection has been ruled out. However, she still has serous drainage from the surgical wound. She has been doing well with the rehab and with the plan for discharge home tomorrow. REVIEW OF SYSTEMS GENERAL: She has no fever. No weight loss. RESPIRATORY: No shortness of breath. No cough. CARDIOVASCULAR: No chest pain. ADMINISTRATIVE OFFICER: No history of stroke. GI: Irregular bowels. Irritable bowel syndrome. Bleeding only from hemorrhoids. MUSCULOSKELETAL: Back surgery. She is doing well with rehab. EXTREMITIES: She denies edema. PAST MEDICAL HISTORY 1. Type 2 diabetes. 2. Hypothyroidism. 3. Hypertension. MEDICATIONS 1. Metformin. 2. Glipizide. 3. Synthroid. 4. Amlodipine. 5. Flexeril. 6. Ferrous sulfate. 7. Lasix. 8. Aspirin 81 mg. 9. Lipitor. FAMILY HISTORY Noncontributory. SOCIAL HISTORY Nonsmoker. PHYSICAL EXAM VITAL SIGNS: Stable. GENERAL: Not in acute distress. She uses a walker. She wears back braces. CHEST: Lungs are clear to auscultation. No wheezing. CARDIOVASCULAR: Normal sinus rhythm. No murmur. No JVD. ABDOMEN: Benign. No organomegaly. No masses. Abdomen is soft. Bowel sounds positive. LYMPH SYSTEM: No cervical, supraclavicular, axillary or inguinal adenopathy. SKIN: No rash. ADMINISTRATIVE OFFICER: No focal neurological deficit. BREAST EXAM: Deferred. MUSCULOSKELETAL SYSTEM: The patient has on back braces. I was not able to examine the surgical wound. Per other exams, the patient has serous drainage which is improving. LAB CBC on January 30, 2017 considered her baseline (this is 5 days after surgery) : White count 9.3, hemoglobin 9.1, platelets 365,000. Platelet count on February 12, 2016 is 1,197,000. Platelets today 1,063,000. CBC on February 03: WBC 16.1 (now down to less than 10-normal). Hemoglobin 9.8. Platelets 681,000. ESR 68. CRP was 114. ASSESSMENT 1. Persistent thrombocytosis with platelet count more than a million thousand, concerning for essential thrombocythemia/myeloproliferative neoplasm. However, with the platelet count baseline two weeks ago being normal in addition to ESR 68, CRP more than 100, recent surgery with persistent serous drainage, this could be simply acute phase reaction. RECOMMENDATION AND PLAN I had a lengthy discussion with the patient and her daughter explaining to them the differential diagnosis of acute-phase reaction versus primary bone marrow disorder such as myeloproliferative neoplasm/essential thrombocythemia . I explained to them diagnostic procedures, prognosis and treatment options. I answered all their questions to their satisfaction. We agreed for the following plan of care. 1. Increase aspirin from 81 to 325 mg daily. 2. Recheck CBC in the morning and if platelet count continues to drop will have the patient go home on aspirin 325 with CBC every other day. On the other hand, if the platelet count continues to rise or does not go down, will start anagrelide 0.5 mg four times a day with CBC every other day. 3. Will send blood today for JAK2 [id number] gene mutation with _ reflex 2 Exon 12 _, [id number] and CALR gene mutation if the JAK2 is negative. 4. Ultrasound of the spleen to check for splenomegaly. 5. I will see the patient next week for followup with ultrasound of the spleen and the JAK2 result. Thank you for allowing me to participate in the management and care of your patient. SHIRLEY
[2017-02-12] MEDS: ATORVASTATIN 10 MG TABLET PO SCH (20:10)
[2017-02-12] MEDS: SENNOSIDES 8.6 MG TABLET PO SCH (20:11)
[2017-02-12] MEDS: MELATONIN 5 MG TABLET PO SCH (20:11)
[2017-02-12] MEDS: VALERIAN ROOT PO SCH (20:13)
[2017-02-13] MEDS: Oxycodone/Apap 10/325 1 TAB PO PRN ×3 (03:25→13:05)
[2017-02-13] MEDS: AMLODIPINE/BENAZEPRIL 5mg/10mg CAPSULE PO SCH (05:42)
[2017-02-13] MEDS: LEVOTHYROXINE 125 MCG TABLET PO SCH (05:42)
[2017-02-13] MEDS: PANTOPRAZOLE 20 MG TABLET PO SCH (05:42)
[2017-02-13] MEDS: CYCLOBENZAPRINE 10 MG TABLET PO PRN (07:37)
[2017-02-13 08:26] VITALS: BP 148/67; PULSE 90; RESP 22; TEMP 97.7; O2SAT 97
[2017-02-13] MEDS: ASCORBIC ACID PO SCH (08:30)
[2017-02-13] MEDS: CRANBERRY PO SCH (08:30)
[2017-02-13] MEDS: METFORMIN 1,000 MG TABLET PO SCH (08:42)
[2017-02-13] MEDS: DOCUSATE SODIUM 100 MG CAPSULE PO SCH (08:42)
[2017-02-13] MEDS: FEXOFENADINE 180 MG TABLET PO SCH (08:42)
[2017-02-13] MEDS: ASPIRIN 325 MG TABLET PO SCH (08:42)
[2017-02-13] MEDS: FUROSEMIDE 20 MG TABLET PO SCH (08:42)
[2017-02-13] MEDS: LACTOBACILLUS (15B cfu) CAPSULE PO SCH (08:42)
[2017-02-13] MEDS: MULTI-VITAMIN PLAIN TABLET PO SCH (08:43)
[2017-02-13] MEDS: POLYETHYL GLYCOL 3350 17gm PACKET PO SCH (08:43)
[2017-02-13] MEDS: CALCIUM CARBONATE 500 MG TABLET PO SCH (08:43)
[2017-02-13] MEDS: GlipiZIDE 5 MG TABLET PO SCH (08:43)
--- NOTE | 2017-02-13 09:03 | Progress Note ---
Oncology Subjective The patient is doing good. She is ready to go home today with home health. Ultrasound of the spleen came back negative. Platelets still elevated at 1,082,000.The patient has no fever. No bleeding. Exam Vital signs: Temperature 97.7 F 02/13/17 08:00 Pulse Rate 90 02/13/17 08:00 Respiratory Rate 22 02/13/17 08:00 Blood Pressure 148/67 H 02/13/17 08:00 Pulse Oximetry 97 02/13/17 08:00 - Constitutional no acute distress, cooperative - Routine HEENT Exam Head: Present: normocephalic, atraumatic ENT: Present: mucous membranes moist - Routine Neck Exam Present: supple. Absent: lymphadenopathy - Routine Respiratory Exam Present: accessory muscle use. Absent: rhonchi, stridor, wheezes - Routine Cardiovascular Exam Present: RRR. Absent: JVD - Routine Abdominal Exam Present: soft - Routine Extremities Exam Absent: edema - Routine Back/Spine/Pelvis Exam Comments: The patient had back surgery recently. She is on [facility] Oncology Results - Labs CBC & Chem 7: 02/13/17 04:26 02/12/17 05:20 Labs: Short CBC 02/13/17 Range/Units 04:26 WBC 8.2 (4.5-11.0) T/MM3 Hgb 8.6 L (12-16) GM/DL Hct 27.3 L (36-46) % Plt Count 1082 H* (130-400) T/MM3 Assessment and Plan Assessment and Plan: Assessment: 1. Resistant thrombocytosis concerning for essential thrombocythemia. Cale 2 pending. 2. Recent history of back surgery/laminectomy with bone graft and instrumentation with no signs of infection. Recommendation and plan Again I explained to the patient, her and her daughter the differential diagnosis of reactive phase thrombocytosis versus essential thrombocythemia/ myeloproliferative neoplasm which requires more aggressive treatment other than just aspirin. I explained to them diagnostic procedures natural course of the disease and also all the questions to their satisfaction. We agreed for the following plan of care: 1. Continue aspirin 81 mg p.o. daily. 2. Trial of anagrelide 0.5 mg p.o. 3 times daily until I got the result of Cale 2. 3. CBC on Saturday, Saturday and Saturday. The patient will call for results on these days so I could adjust the dose of the anagrelide. CBC will be done by home health. - Time Spent With Patient Total time spent is greater than 50% in coordination of care (as documented) at patient's floor/unit and/or counseling patient: 25 - 35 minutes
--- NOTE | 2017-02-13 10:29 | IRU Progress Note ---
- Subjective/Serverity of Illness Date: 02/13/17 Ms. Castle was interviewed and examined in her room today. Her daughter is present. She is anxious to go home and would like to leave just after lunch. She states that she is eating and drinking adequately. She states that she feels stable to go home at the present time. We have arranged home health who will do dressing changes as well as draw blood every other day. Her blood sugars are reviewed and lung good. Her platelet count remains elevated. Dr. Blanco has started Anagralide and recommends a CBC every other day. Exam Vital Signs: Temperature 97.7 F 02/13/17 08:00 Pulse Rate 90 02/13/17 08:00 Respiratory Rate 22 02/13/17 08:00 Blood Pressure 148/67 H 02/13/17 08:00 Pulse Oximetry 97 02/13/17 08:00 Height/Weight/BMI: Height 1.59 m Weight 84.2 kg Body Mass Index 33.1 - Constitutional Present: no acute distress, well nourished, well developed, cooperative - Routine HEENT Exam Head: Present: normocephalic Eye: Present: EOMI ENT: Present: mucous membranes moist, dentition normal - Routine Neck Exam Present: supple - Routine Respiratory Exam Present: CTA bilaterally. Absent: wheezes - Routine Cardiovascular Exam Present: RRR, S1, S2. Absent: murmur - Routine Abdominal Exam Present: soft, normoactive bowel sounds, non distended. Absent: tenderness - Routine Extremities Exam Present: edema (trace edema noted. Improved from before.) - Routine Skin Exam Present: dry, warm - Routine Neurological Exam Present: alert, oriented X3, CN II-XII intact - Routine Psychiatric Exam Present: normal affect, cooperative. Absent: anxious Results IRU - Labs Labs: CBC and sugars are reviewed. IRU A/P (1) S/P lumbar laminectomy Current visit: Yes Status: Acute She has the expected amount of discomfort from her surgery. She is stable and we anticipate a safe transition to her home environment. Physical therapy and occupational therapy as well as halfway will be obtained at home. (2) Delirium Current visit: Yes Status: Resolved (3) Hyponatremia Current visit: Yes Status: Resolved (4) Diabetes mellitus type 2 in obese Current visit: Yes Status: Chronic Blood sugars are adequately controlled at present. (5) Leukocytosis Qualifiers: Leukocytosis type: unspecified Qualified Code(s): D72.829 - Elevated white blood cell count, unspecified Current visit: Yes Status: Resolved (6) Thrombocytosis Current visit: Yes Status: Acute Continues to demonstrate thrombocytosis. Hematology has been consulted. Please see above discussion. DVT Prophylaxis: SCD's Resuscitation Status: Full Code - Course Hospital Course: Chente Monroe MD: 01/30/17 11:15 Getting started with therapy. Confusion is an issue and carryover of education is questionable. White count is now normal. Sodium 125. 01/31/17 10:23 Cognition improved. Sodium improved to 127. Progressing with therapy. Pain as anticipated. 02/04/17 09:56 She is now on vancomycin plus oral cephalexin. White count remains elevated at 16,000. Hospitalists are following. 02/05/17 13:[address] Bowman. Vancomycin discontinued. White count still elevated at 17,000 of uncertain etiology. Making progress with therapy 02/07/17 10:57 Wounds appear to be benign although there is some drainage. White count improved at 14,000. Afebrile. Cooperative with therapy although not terribly aggressive with personal care. 02/08/17 11:30 She is improving with therapy. Specifically she is improving with personal hygiene care for occupational therapy. Was able to sleep better last night and was able to be more independent with donning and doffing her brace. Blood sugars are well controlled. 02/11/17 11:52 Continues to improve with therapy. Pain adequately controlled with between 5-6 Percocet daily. Thrombocytosis noted. 02/12/17 11:04 Platelet count slightly improved. Patient doing well with therapy and anticipates going home tomorrow with home health. 02/13/17 10:29 Platelet count continues to be elevated. Anagrelide has been started by Dr. Blanco. Transition to home anticipated safely today with home health involvement. - Interventions to Obtain Goals PT Treatment Plan: Balance/Proprioception, Functional Activities, Gait Training , Patient/Family Education, Therapeutic Exercise OT Treatment Plan: ADL (Basic Care), Balance Training, IADL, Pt./Family Education
--- NOTE | 2017-02-13 12:07 | Discharge Summary ---
Discharge Information Date of admission: 01/29/17 15:13 Anticipated date of discharge: 02/13/17 Attending Physician: Chente Monroe MD Primary care physician: Mari Hinkle DO Consults: 02/11/17 Airplane Tester Consult [Inpatient Diabetic Consult] [CONS] Routine Diabetic Training: Monitoring Diabetes 02/12/17 08:00 Physician Consult [CONS] Routine Consulting Provider: Chelsea Blanco Reason For Exam: thrombocytosis Ordering Provider has Notified Orthodontic Laboratory Technician: No Comment: call on 02/13/16 01/29/17 15:52 Physician Consult [CONS] Routine Consulting Provider: Tiburcio Francisco Reason For Exam: medical management Ordering Provider has Notified Orthodontic Laboratory Technician: No 02/05/17 09:11 Physician Consult [CONS] Routine Consulting Provider: Neha Bowman Reason For Exam: elevated WBC, recent back surgery Ordering Provider has Notified Orthodontic Laboratory Technician: Yes - Discharge Diagnosis (1) S/P lumbar laminectomy Status: Acute (2) Delirium Status: Resolved (3) Hyponatremia Status: Resolved (4) Diabetes mellitus type 2 in obese Status: Chronic (5) Leukocytosis Status: Resolved (6) Thrombocytosis Status: Acute 1. Status post lumbar laminectomy 2. Acute encephalopathy/delirium secondary to pain medications 3. Diabetes mellitus type 2 without jail use of insulin, not controlled 3. Benign essential hypertension 4. Leukocytosis - resolved 5. Thrombocytosis, uncertain etiology - Laboratory Labs: 02/13/17 04:26 02/12/17 05:20 - Microbiology Microbiology 02/02/17 09:51 Peripheral/Iv Start Blood Culture - Final No Growth After 5 Days 02/02/17 09:57 Peripheral/Iv Start Blood Culture - Final No Growth After 5 Days 02/02/17 11:22 Back Gram Stain - Final 02/02/17 11:22 Back Superficial Wound Culture - Final No Growth After 3 Days History of Present Illness HPI: 02/13/17 11:59 Ms. Castle reports significant back pain for several months. She was evaluated and seen by Dr. Abdalla who took her to surgery on 01/25/2017 for fusion and laminectomy with posterior instrumentation and autograft placement. She tolerated the procedure well. She was felt to be stable for dismissal from [facility] and was admitted to acute inpatient rehabilitation at [facility] on 01/29/2017. A multidisciplinary approach with PT, OT as well as 24-hour nursing rehabilitation and medical supervision was recommended. At the time of admission she had some drainage from the posterior lumbar wound. She also had an anterior wound which was not draining. This was a serosanguineous drainage. She was on cephalexin at the time of admission to [facility]. She was afebrile. 02/13/17 11:59 Hospital Course This is a general summary of the patient's hospital course. For more details refer to the complete medical record. The patient was admitted to inpatient rehabilitation at [facility] on 01/29/2017. She was seen by occupational therapy. The following changes were noted in her functional abilities: For eating she was initially modified independent and ultimately independent functioning. Grooming was performed with standby assistance initially and ultimately independent functioning. Bathing was initially minimum assistance and ultimately standby assistance. Upper body dressing with standby assistance at the beginning of therapy and at the conclusion of therapy. This was unable to be improved due to the use of the brace. However she was able to don and doff the brace on her own. Lower body dressing was initially minimum assistance and ultimately modified independent level. Toileting assistance was initially contact-guard and ultimately independent level. Toilet transfer assistance was initially contact-guard and ultimately modified independent. Bed/chair/wheelchair transfers were contact guard assistance upon admission and dismissal. She was also seen by physical therapy. The following changes in functional mobility were noted: For bed/chair/wheelchair transfers she was initially requiring moderate assistance and ultimately was able to complete this at modified independent level. Toilet assistance was initially total assistance and ultimately independent level. Toilet transfer assistance was initially contact-guard assistance and ultimately modified independent. Car transfers were initially moderate assistance and ultimately standby assistance. She was initially able to ambulate 155 feet with contact guard assistance. At the conclusion of therapy she was able to ambulate between 700 and 1000 feet with modified independent level of functioning with a front-wheeled walker. She was able to climb 12 steps with modified independent level. From a medical standpoint, we monitored several issues. First of all she does have diabetes mellitus and her blood sugars were monitored. There were initially running a bit high. She was seen by the dietitian and instructed in a 2000-calorie consistent carbohydrate diet. She was also followed by the hospitalist service and medications were adjusted. Her blood sugars improved toward the end of the hospitalization. Secondly, she had evidence of delirium/acute encephalopathy. This was felt to be secondary to pain medications which she had received previously. As we adjusted her pain medications, the encephalopathy cleared and she had no further confusion. Thirdly she has a history of benign essential hypertension. Her blood pressures were monitored and overall were stable. Fourthly, she had wound drainage from the lower part of the posterior lumbar incision. This was a serosanguineous drainage initially. Gram stain was performed on 02/02/2017 showing a few neutrophils, a few epithelial cells and a few gram-positive cocci. However culture was negative. Blood cultures were negative 2. She remained afebrile throughout this time. The amount of drainage improved. Is still present but is minimal at the time dismissal and is totally serous and not sanguinous nor purulent. The wound itself did not appear to be infected. There was no redness and no warmth. She was seen by Dr. Neha Bowman. She completed her course of cephalexin. Initially vancomycin had been begun prior to Dr. Bowman seeing her. Dr. Bowman discontinue the vancomycin. Her admission white count was 9300, increasing to 17,000 on 02/05/2017. As of dismissal her white count is 8200 on 02/14/2016. CRP on 02/02/2017 was 114. On 02/05/2014 it was 27.4 with normal being 9 or less. Sedimentation rate was 68 on 02/02/2017. She was sent home with 7 days of cephalexin 500 mg 4 times daily. Fifthly, she did develop thrombocytosis. Her initial platelet count was 365,000 on 01/30/2017. It cinthya to a maximum of 1.197 million on 02/11/2017. Upon dismissal on 02/13/2017 it is 1.082 million. She was seen in consultation by Dr. Michael. He increased her aspirin to 325 mg daily and also added on Anagrelide 0.5 mg tid to start at home. He recommends CBCs be done every other day and he will see her in follow-up in about a week. Home health is consulted to control this. She will also be seen by home health physical therapy and occupational therapy for a safe transition to her home environment. It is noted that she was sent home with a prescription for Percocet 10/325 #50 tablets. We did advise her to work on reducing the frequency of use of these. Hospital course: Plan - 02/01/17 ([place]) Continue pain management and therapies per Dr. Monroe. Hyponatremia noted on admission. Na 126 today with calculated serum osmolality low at 243; Urine osmolality and urine random sodium 213 and 42 respectively on admission. Discussed with Dr. Slater. Will give additional Lasix 60mg po now with KCl 40 mEq po now due to increased fluids status as noted by increased daily weight and 2+ edema bilaterally. Will increase daily lasix to 40mg BID and add KCl 20 mEq daily. Recheck BMP in AM to monitor electrolytes and renal function. Continue to monitor oral intake and daily weight closely. Patient noted to be drinking water frequently on exam. If additional lasix does not improve hyponatremia, consider fluid restriction. Blood sugars have been variable with low at 41 and high at 206 since admission. More stable today with increased oral intake. Continue to monitor closely for hypoglycemia. Prior records indicate home dose of Glipizide at 10mg in AM and 5mg at 1700. Due to hypoglycemia, Glipizide was decreased from 10mg to 5mg in AM on 01/31 with evening Glipizide stable at 5mg. Will continue glipizide 5mg BID and metformin 1000mg BID. Blood pressure remains slightly elevated, but acceptable given her pain. We'll continue to monitor closely. Continue home amlodipine/benazepril 5/10 and Lasix 20mg daily. Will consult wound care to monitor surgical incisions and for dressing change recommendations. Back dressing changed 02/01/17 due to discharge on dressing. Continue Keflex 500mg QID per for treatment of common pathogens to surgical sites. Treatment course through 02/09/17. Continue to provide safe and supportive environment. Plan - 02/02 Following initial examination. Did speak with on-call spine surgeon, Dr. Rowdy Ndiaye (oncall for Dr Arambula) He recommended repeating CBC, obtaining CRP and sedimentation rate. He also recommended. Patient placed supine, Clean incision with alcohol and obtaining a wound culture from lumbar incision. Thick dressing with compression as per recommendation Will continue with Keflex 500 milligrams 4 times a day(through 02/09), he recommended adding Bactrim DS twice a day. Did speak with Abdirahman to confirm no previous wound culture was obtained during her stay. Place activity on hold today. Encourage patient to lie supine if possible. Obtain stool for occult blood. Given recent reported black stool. Hemoglobin remained stable. Protonix daily for GI protection. Lasix was decreased to baseline dose of 20 QD. Magnesium is normal at 1.6. Sodium did improve to 132. Continue to monitor Discussed case with attending, Nursing, Dr Monroe and Dr Ndiaye. 45 minutes spend with patient and coordination of care Will call Dr Ndiaye again this afternoon for update Plan - 02/03 Overall feeling good this morning. Leukocytosis improved down to 15 today. Continue on IV Vancomycin for antimicrobial coverage. Continue with PO Keflex also. Continue to monitor lumbar incision drainage. Wound and blood cultures pending. Lasix dosing remains at baseline 20 mg daily. Continue to encourage work with PT,OT for strengthening Will recheck CBC, BMP and magnesium tomorrow morning Stool for occult blood pending sample. Case discussed with attending 02/04/17 WBC 17.0-->15.2-->16.1, but no bands today and neutrophils are decreasing. Continue on IV Vancomycin and PO Keflex for antimicrobial coverage. Continue to monitor lumbar incision drainage. Wound and blood cultures pending. Lasix dosing remains at baseline 20 mg daily. She had been refusing Lasix which is likely why her potassium is high. Her potassium is on hold and she will take her Lasix. Continue to encourage work with PT,OT for strengthening Check iron studies given her steady increase in platelet count. Repeat CBC and BMP in am to follow WBC, platelets, and electrolytes. Pain control per Dr. Monroe. 02/05/17 WBC has not improved on vanc. Dr. Bowman (ID) assessed patient and recommends DC vanc given her WBC has not improved, her incision does not look infected and clinically she is improving. She recommended to continue the Keflex until patient follows up with Dr. Abdalla. It is unclear why she continues to have leukocytosis and elevated acute phase reactants, but her CRP is improving. Her wound and blood cultures have been neg. Potassium is elevated 4.7-->5.2-->5.6 today . Specimen was hemolyzed. Will repeat potassium level 02/08/17 Plan Overall doing well. Pain is well controlled on meds Will recheck labs today to follow leukocytosis and Thrombocytosis. No growth from blood cultures or wound culture. Appreciate Dr Bowman ID consultation. Recommends continuing PO keflex until follow up with Dr De Paz. Continue to encourage work with PT/OT for strengthening Medically stable 02/11/17 Platelet count escalating, now up to 1197. Will consult Dr. Blanco or Dr. Fernandez on 02/13/16. WBC normal at 9.7. Discharge Plan - Med Rec/Dispo Referrals/Follow Up: Chelsea Blanco MD [Physician] - (Dr. Rebecca Blanco on 02/19/17 at 1:00 pm for follow-up. [address] [place] [id number]) Mari Hinkle DO [Family Provider] - (Dr. Adan Hinkle on 02/21/17 at 10:30 am for Hosp. follow-up. [address] [place] [address]) Duke Abdalla MD [Physician] - (Dr. Gianna Abdalla on 02/20/17 at 11:15 am for Post-Op follow-up. . [facility] [address] [place] [address]) Delia Instructions: Type 2 Diabetes in Adults (DC) Prescriptions: New Sennosides [Senna Lax] 17.2 mg PO HS tab Aspirin Chewable [ASA] 81 mg PO DAILY #30 tab.chew Acidoph/L.bulg/Bif.b/S.thermop [Bacid Caplet] 2 cap PO BIDWM tab Metformin [Glucophage] 1,000 mg PO BIDWM #60 tab Continue Magnesium Carb/Aluminum Hydrox [Acid Gone Tablet Chew] 2 tab PO Q6HR PRN PRN Reason: upset stomach Esomeprazole Magnesium [Nexium] 20 mg PO 0630 Levothyroxine Tab [Synthroid] 125 mcg PO ACB Multivitamin [Multivitamins] 1 each PO DAILY Melatonin 10 mg PO HS CephALEXin [Keflex] 1 tab PO QID #28 cap Fexofenadine [Casie] 180 mg PO DAILY Hyoscyamine Sulfate 0.125 mg PO Q4HR PRN PRN Reason: IBS Ferrous Sulfate 325 mg PO 1200 Atorvastatin [Lipitor] 1 tab PO HS Amlodipine Besylate/Benazepril [Lotrel 5-10 mg Capsule] 1 each PO 0630 Amitriptyline [Elavil] 1 tab PO HS Calcium Carb,Gluc/Mag Ox,Gluc [Calcium Magnesium Caplet] 1 each PO DAILY Furosemide [Lasix] 1 tab PO DAILY Docusate Sodium [Colace] 3 cap PO DAILY Promethazine HCl 25 mg PO Q6HR PRN PRN Reason: Nausea &/Or Vomiting Valerian Root 1,000 mg PO HS Cranberry Conc/Ascorbic Acid [Cranberry Plus Vitamin C Sftgl] 2 each PO DAILY Changed Oxycodone/Apap 10/325 [Percocet 10/325] 1 tab PO Q4HR PRN #50 tab PRN Reason: Pain Discontinued glipiZIDE [Glipizide] 10 mg PO BID No Action Cyclobenzaprine [Flexeril] 1 tab PO Q8HR PRN PRN Reason: Muscle Spasm - Disposition 01 Discharged Home, Self-Care
--- NOTE | 2017-02-13 12:19 | Letter to Referring Physician ---
Dear Dr. Hinkle, This is a brief note to bring you up-to-date on the status of Hui Castle and their stay on the acute inpatient rehabilitation unit at [facility]. As you are likely aware, this patient was admitted to [facility] on 01/25/17 for lumbar laminectomy, fusion, posterior instrumentation and autograft. The patient was stabilized while on the acute level and admitted to inpatient rehabilitation unit at [facility] on January 29, 2017. While on inpatient rehabilitation, this patient was seen by occupational therapy and physical therapy and improved overall in their functional ability. We also monitored and managed the patient's diabetes, confusion/delirium, hypertension, wound drainage, leukocytosis and thrombocytosis while on Acute Rehab. Please see a copy of the history and physical examination as well as discharge summary enclosed with this letter for further details. We do recommend that the patient obtain a CBC every other day after dismissal. We have arranged this at the time of the Acute Rehab stay to be drawn by [facility] and sent to Dr. Michael. Please note that we gave her a prescription for Percocet 10/325 #50 tablets to take 1 every 4 hours as needed for pain. We urged her to reduce the frequency of use of this and I indicated that we would not provide additional pain medication after dismissal. She will need to obtain that from you or Dr. Abdalla if appropriate. Thank you for allowing us to be involved in this nice patient's care. Please contact me directly should you have any questions regarding their stay on the inpatient rehabilitation unit. Sincerely, Chente Monroe M.D.
[2017-02-13] MEDS: FERROUS SULFATE 324 MG TABLET PO SCH (12:26)
== END 2017-02-13 13:55 | disposition home health service (06) | DRG 559 ==
PROVIDERS: ADMIT Internal Medicine; ATTEND Internal Medicine